=== PATIENT | male | born 1945 | race Caucasian/White ===

== ENCOUNTER 2019-04-29 15:55 | Outpatient (REF) | payer MEDICARE, MEDICAID, SELFPAY | END 2019-04-29 16:15 | LOC: NCHCN 15:55 | PROVIDERS: Visit Provider Nurse Practitioner Family | DX: L03.115 Cellulitis of right lower limb (principal) | CPT/HCPCS: 87077; 87070; 87186; 87205 ==

== ENCOUNTER 2019-05-02 16:16 | Outpatient (REF) | payer MEDICARE, MEDICAID, SELFPAY ==
[2019-05-02 21:59] LABS: HGB 12.6 g/dL (13.5-17.5); Mean Corp. HGB Concentration 32.3 g/dL (32.0-36.0); Mean Corpuscular Hemoglobin 31.4 pg (27.0-33.0); Mean Corpuscular Volume 97.3 fL (80-95); Mean Platelet Volume 11.4 fL (8.0-11.0); Platelet Count 184 x1000/uL (130-400); RBC 4.01 m/cumm (4.50-6.00); RBC Distribution Width 14.9 % (11.8-14.1); White Blood Cell Count 5.56 k/cumm (4.4-10.8)
[2019-05-02 22:15] LABS: BUN 22 mg/dL (7-18); CREATININE 1.19 mg/dL (0.70-1.30); Calcium 8.8 mg/dL (8.5-10.1); Chloride 100 mmol/L (98-107); Glucose 90 mg/dL (70-100); Potassium 5.2 mmol/L (3.5-5.1); Sodium 136 mmol/L (136-145)
== END 2019-05-02 16:36 ==
LOC: NCHCN 16:16
PROVIDERS: Visit Provider Internal Medicine
DX: I10 Essential (primary) hypertension (principal); R42 Dizziness and giddiness
CPT/HCPCS: 80048; 85027

== ENCOUNTER 2019-05-16 08:28 | Outpatient (REF) | payer MEDICARE, MEDICAID, SELFPAY ==
[2019-05-16 23:34] LABS: Iron 42 ug/dL (50-175); Total Iron Binding Capacity 281 ug/dL (250-450); Transferrin Sat 15 % (20-55)
[2019-05-17 00:04] LABS: Ferritin 93 ng/mL (8-388); Vitamin B12 392 pg/mL (193-986)
== END 2019-05-16 08:48 ==
LOC: NCHCN 08:28
PROVIDERS: Visit Provider Internal Medicine
DX: D64.9 Anemia, unspecified (principal)
CPT/HCPCS: 80186; 82607; 82728; 83540; 83550

== ENCOUNTER 2019-08-01 10:58 | Outpatient (REF) | payer MEDICARE, MEDICAID, SELFPAY ==
[2019-08-01 23:01] LABS: Calculated LDL 100 mg/dL; Cholesterol 173 mg/dL (50-200); HDL Cholesterol 50 mg/dL (40-60); Triglyceride 115 mg/dL (30-150)
== END 2019-08-01 11:18 ==
LOC: NCHCN 10:58
PROVIDERS: Visit Provider Internal Medicine
DX: I10 Essential (primary) hypertension (principal); Z13.6 Encounter for screening for cardiovascular disorders
CPT/HCPCS: 80061

== ENCOUNTER 2019-10-10 13:40 | Outpatient (REF) | payer MEDICARE, MEDICAID, SELFPAY ==
[2019-10-10 21:24] LABS: Uric Acid 4.6 mg/dL (3.5-7.2)
== END 2019-10-10 14:00 ==
LOC: NCHCN 13:40
PROVIDERS: Visit Provider Internal Medicine
DX: M10.9 Gout, unspecified (principal)
CPT/HCPCS: 84550

== ENCOUNTER 2020-04-26 13:01 | Outpatient (REF) | payer MEDICARE, MEDICAID, SELFPAY ==
[2020-04-26 20:52] LABS: Abs Immature Grans 0.02 k/cumm (0.0-0.09); Absolute Basophil Count 0.03 k/cumm (0.0-0.2); Absolute Lymphocyte Count 0.94 k/cumm (1.2-3.4); Absolute Monocyte Count 0.66 k/cumm (0.11-0.7); Absolute Neutrophil Count 3.71 k/cumm (1.2-6.7); Basophils % 0.5; Eosinophils % 3.6; HCT 44.7 % (40.0-50.0); HGB 14.4 g/dL (13.5-17.5); Immature Grans % 0.4 %; Lymphocytes % 16.9; Mean Corp. HGB Concentration 32.2 g/dL (32.0-36.0); Mean Corpuscular Hemoglobin 31.6 pg (27.0-33.0); Mean Corpuscular Volume 98.2 fL (80-95); Mean Platelet Volume 11.3 fL (8.0-11.0); Monocytes % 11.9; Neutrophils % 66.7; Platelet Count 159 x1000/uL (130-400); RBC 4.55 m/cumm (4.50-6.00); RBC Distribution Width 14.4 % (11.8-14.1); White Blood Cell Count 5.56 k/cumm (4.4-10.8)
[2020-04-26 21:04] LABS: Ferritin 79 ng/mL (26-388)
== END 2020-04-26 13:21 ==
LOC: NCHCN 13:01
PROVIDERS: Visit Provider Internal Medicine
DX: D64.9 Anemia, unspecified (principal)
CPT/HCPCS: 82728; 85025

== ENCOUNTER 2020-10-19 17:57 | Outpatient (REF) | payer MEDICARE, MEDICAID, SELFPAY ==
[2020-10-19 22:03] LABS: Anion Gap 4.3 mmol/L (3-11); BUN 35 mg/dL (7-18); CO2 32.7 mmol/L (21.0-32.0); CREATININE 1.17 mg/dL (0.70-1.30); Calcium 8.7 mg/dL (8.5-10.1); Chloride 101 mmol/L (98-107); Glucose 87 mg/dL (74-106); Potassium 4.4 mmol/L (3.5-5.1); Sodium 138 mmol/L (136-145)
== END 2020-10-19 18:17 ==
LOC: NCHCN 17:57
PROVIDERS: PCP Internal Medicine; Visit Provider Internal Medicine
DX: I10 Essential (primary) hypertension (principal)
CPT/HCPCS: 80048

== ENCOUNTER 2020-10-24 19:20 | Outpatient (REF) | payer MEDICARE, MEDICAID, SELFPAY ==
[2020-10-25 20:39] LABS: PSA, Screening 6.7 ng/mL (0.0-6.5)
== END 2020-10-24 19:40 ==
LOC: NCHCN 19:20
PROVIDERS: PCP Internal Medicine; Visit Provider Internal Medicine
DX: N42.89 Other specified disorders of prostate (principal); Z12.5 Encounter for screening for malignant neoplasm of prostate
CPT/HCPCS: 84153

== ENCOUNTER 2021-12-06 20:47 | Outpatient (REF) | payer MEDICARE, MEDICAID, SELFPAY ==
[2021-12-06 20:52] LABS: Abs Immature Grans 0.03 10^3/uL (0.0-0.06); Absolute Basophil Count 0.06 10^3/uL (0.0-0.2); Absolute Eosinophil Count 0.23 10^3/uL (0.0-0.7); Absolute Lymphocyte Count 0.85 10^3/uL (1.2-3.4); Absolute Monocyte Count 0.38 10^3/uL (0.1-0.8); Absolute Neutrophil Count 3.91 10^3/uL (1.2-6.7); Basophils % 1.1; Eosinophils % 4.2; HCT 46.1 % (40.0-50.0); HGB 14.5 g/dL (13.5-17.5); Immature Grans % 0.5; Lymphocytes % 15.6; MCH 30.3 pg (27.0-33.0); MCHC 31.5 % (32.0-36.0); MCV 96.2 fL (80-95); MPV 11.1 fL (8.0-11.0); Neutrophils % 71.6; Nucleated RBC 0 %; Platelet Count 165 10^3/uL (130-400); RBC 4.79 10^6/uL (4.36-5.78); RDW 15.3 % (11.8-14.1); RDW-SD 54.6 fL; WBC 5.46 10^3/uL (4.4-10.8)
[2021-12-06 21:32] LABS: ALT 26 U/L (16-63); AST 29 U/L (15-37); Albumin 4.1 g/dL (3.4-5.0); Alkaline Phosphatase 112 U/L (46-116); Anion Gap 6.2 mmol/L (3-11); BUN 26 mg/dL (7-18); Bilirubin, Total 0.4 mg/dL (0.2-1.0); CO2 31.8 mmol/L (21.0-32.0); CREATININE 1.3 mg/dL (0.70-1.30); Chloride 102 mmol/L (98-107); Estimated GFR 53.82 (mL/min/1.73m2); Glucose 85 mg/dL (74-106); Potassium 4.2 mmol/L (3.5-5.1); Sodium 140 mmol/L (136-145); TSH (W/Ref FT4) 2.15 uIU/mL (0.36-3.74); Total Protein 7.4 g/dL (6.4-8.2); Uric Acid 4.2 mg/dL (3.5-7.2)
== END 2021-12-06 20:48 | disposition home or self-care (01) ==
LOC: NCHCN 20:47
PROVIDERS: PCP Internal Medicine; Visit Provider Internal Medicine
DX: R53.83 Other fatigue (principal); R63.4 Abnormal weight loss; M10.9 Gout, unspecified
CPT/HCPCS: 80053; 84443; 84550; 85025

== ENCOUNTER 2022-04-16 15:54 | Outpatient (REF) | payer MEDICARE, MEDICAID, SELFPAY ==
[2022-04-16 21:18] LABS: HCT 41.9 % (40.0-50.0); HGB 13.8 g/dL (13.5-17.5); MCH 30.7 pg (27.0-33.0); MCHC 32.9 % (32.0-36.0); MCV 93 fL (80-95); Platelet Count 152 10^3/uL (130-400); RBC 4.49 10^6/uL (4.36-5.78); RDW 14.7 % (11.8-14.1); RDW-SD 50.9 fL; WBC 4.61 10^3/uL (4.4-10.8)
[2022-04-16 21:39] LABS: Anion Gap 7.5 mmol/L (3-11); BUN 27 mg/dL (7-18); CO2 29.5 mmol/L (21.0-32.0); CREATININE 1.3 mg/dL (0.70-1.30); Calcium 8.7 mg/dL (8.5-10.1); Chloride 102 mmol/L (98-107); Estimated GFR 53.82 (mL/min/1.73m2); Glucose 84 mg/dL (74-106); Potassium 4.2 mmol/L (3.5-5.1); Sodium 139 mmol/L (136-145); TSH (W/Ref FT4) 2.18 uIU/mL (0.36-3.74)
== END 2022-04-16 15:55 | disposition home or self-care (01) ==
LOC: NCHCN 15:54
PROVIDERS: PCP Internal Medicine; Visit Provider Internal Medicine
DX: I49.9 Cardiac arrhythmia, unspecified (principal)
CPT/HCPCS: 80048; 85027; 83735; 84443

== ENCOUNTER 2022-12-05 11:54 | Outpatient (REF) | payer MEDICARE, MEDICAID, SELFPAY ==
[2022-12-05 16:03] LABS: HCT 42.3 % (40.0-50.0); HGB 13.3 g/dL (13.5-17.5); MCH 29.6 pg (27.0-33.0); MCHC 31.4 % (32.0-36.0); MCV 94 fL (80-95); MPV 10.8 fL (8.0-11.0); Platelet Count 171 10^3/uL (130-400); RDW 13.9 % (11.8-14.1); RDW-SD 47.4 fL
[2022-12-05 16:26] LABS: ALT 23 U/L (16-63); AST 33 U/L (15-37); Albumin 3.9 g/dL (3.4-5.0); Alkaline Phosphatase 139 U/L (46-116); BUN 28 mg/dL (7-18); Bilirubin, Total 0.6 mg/dL (0.2-1.0); CREATININE 1.4 mg/dL (0.70-1.30); Chloride 101 mmol/L (98-107); Estimated GFR 52.09 (mL/min/1.73m2); Glucose 110 mg/dL (74-106); Potassium 4.6 mmol/L (3.5-5.1); Sodium 138 mmol/L (136-145); TSH (W/Ref FT4) 1.79 uIU/mL (0.36-3.74); Total Protein 7.2 g/dL (6.4-8.2)
== END 2022-12-05 11:55 | disposition home or self-care (01) ==
LOC: NCHCN 11:54
PROVIDERS: PCP Internal Medicine; Visit Provider Family Medicine
DX: R42 Dizziness and giddiness (principal); R53.83 Other fatigue; R63.4 Abnormal weight loss; I10 Essential (primary) hypertension
CPT/HCPCS: 80053; 85027; 84443

== ENCOUNTER 2023-02-03 17:21 | Outpatient (REF) | payer MEDICARE, MEDICAID, SELFPAY ==
[2023-02-03 21:49] LABS: Folate 7.1 ng/mL (8.6-20.0); Vitamin B12 502 pg/mL (193-986)
[2023-02-04 18:28] LABS: PSA, Screening 25.5 ng/mL (<=6.5)
== END 2023-02-03 17:22 | disposition home or self-care (01) ==
LOC: NCHCN 17:21
PROVIDERS: PCP Internal Medicine; Visit Provider Family Medicine
DX: R54 Age-related physical debility (principal); N40.0 Benign prostatic hyperplasia without lower urinary tract symptoms; R39.9 Unspecified symptoms and signs involving the genitourinary system
CPT/HCPCS: 84153; 82607; 82746

== ENCOUNTER → 2023-09-23 01:09 | Outpatient (CLI) | payer MEDICARE, MEDICAID, SELFPAY ==
--- NOTE | 2023-09-23 | DI.RAD_ITS ---
Exam(s) RF MODIFIED SPEECH BA SWALLOW TECHNIQUE: Modified barium swallow was performed in conjunction with speech pathology. CONTRAST MATERIAL: Oral barium Oral water soluble contrast was administered. COMPARISON: No exams were available for comparison FINDINGS: Fluoroscopy was provided during modified barium swallow study performed in conjunction with the [facility] [place] [facility] therapist. Radiologist was present in the fluoroscopy suite for this entire procedure. There was aspiration demonstrated during this study. See separate speech therapist report for detail s. IMPRESSION: Positive study for aspiration. RADIATION DOSE DELIVERED: danny Brooks=8.46 mGy
--- NOTE | 2023-09-23 14:17 | ST.MBS ---
Date of Service Date of service: 09/23/23 Time of Service: 14:17 Modified Barium Swallow Study Findings: Video fluoroscopic Swallowing Evaluation (VFSE) / Modified Barium Swallow Study (MBSS) Speech Language Pathology Report Patient referred for VFSE/MBSS from Dr. Arita given progressing difficulty swallowing solids and liquids. 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 This has been progressing slowly to the point where he is now seeking out further recommendations and workup. IMPRESSIONS: Swallow safety is impaired; swallow efficiency is impaired. Moderate chronic oropharyngeal dysphagia. Characterized primarily by delayed pharyngeal swallow onset and reduced hyo-laryngeal excursion resulting in penetration with aspiration of both thick and thin liquids during the swallow. Also noting reduced tongue base retraction and pharyngeal stripping wave, reduced UES distension, resulting in pharyngeal residue after the swallow (primarily tongue base/vallecular, also mild pyriform). 13mm Barium tablet was suspended in the hypopharynx and required secondary swallow to transit the UES. Noting only mild distal esophageal retention of liquids at end of study via esophageal survey. Penetration and aspiration of liquids occurred increasingly as rate and sip size were increased, and was more severe for thick vs thin liquids. Penetration into larynx was avoided with very small sip size. Of note, patient required cues to cough/clear penetrated or aspirated liquids from airway, with variable success. Patient appears to be at moderate risk for potential aspiration PNA and/or pulmonary compromise and mild risk for malnutrition, dehydration. Diet modification is indicated; non-oral nutrition is indicated. Swallow prognosis is good-fair given: Positive prognostic factors: Severity, Motivation, Cognitive status, Effectiveness of trialed compensatory strategies, Negative prognostic factors: Time since onset, disease/syndrome factors and pending patient/caregiver training in risk management as outlined, including use of trialed compensatory strategies. Patient appears to be a good candidate for behavioral swallow rehabilitation. Suggested specialist referrals:? GI, RD RECOMMENDATIONS: Diet Texture Recommendation:? IDDSI LEVEL SOLIDS 6-Soft & Bite-Sized Solids or 5-Minced & Moist Solids LIQUIDS 0-Thin Liquids with very small sip size and slow rate Please see further details at?www.iddsi.org MEDICATIONS Whole vs Crushed, as advised by MD or pharmacist, with tsp Puree Do not alter medications (e.g., cut, crush)? without advice from your MD or pharmacist. Risk Management Strategies:? Behavioral reflux precautions, including upright position during + 90 mins after meals. Small bites, approx [id number] Very small sips, approx 5mL / teaspoon Alternate solids/liquids as able Multiple swallows per bolus to encourage clearance of pharyngeal stasis/residue Control risk factors for aspiration pneumonia via (a) thorough oral hygiene & (b) maintaining physical mobility as tolerated PLAN: Therapy: Recommend subsequent outpatient session with COOK SUPERVISOR to review results of today's exam and develop treatment plan as appropriate. ----- OBJECTIVE Videofluoroscopic Swallow Evaluation (VFSE/MBSS) was conducted in the lateral projection by Speech-Language Pathologist, in collaboration with Radiologist, to evaluate oropharyngeal swallow function. Anatomic view under fluoroscopy: WFL PO Barium Contrast Trials Oral barium water-soluble contrast was administered as follows: IDDSI Level 0 Varibar thin liquid (40% w/v) IDDSI Level 2 Varibar nectar thick/mildly thick liquid (40% w/v) IDDSI Level 4 Varibar pudding/pureed/extremely thick (40% w/v) IDDSI Level 7 Regular Solid: 1/2 aby cracker coated in 3 mL Varibar pudding 13 mm barium tablet taken with Thin Liquids. MBSImP Component Scores: COMPONENT Scale SCORE 1 Lip closure (0-4) 1 Resulted in interlabial escape, without progression to anterior lip 2 Hold Position (0-3) 0 Maintained a cohesive bolus between tongue to palatal seal 3 Bolus Preparation (0-4) 1 Resulted in slow prolonged chewing/mashing with complete re-collection 4 Bolus Transport (0-4) 3 Was with repetitive/disorganized motion of the tongue 5 Oral Residue (0-4) 2 Was a collection on oral structures 6 Swallow Initiation (0-4) 3 Occurred when the bolus head was in the pyriform sinuses 7 Soft Palate Elevation (0-4) 0 Resulted in no bolus between soft palate and the pharyngeal wall 8 Laryngeal Elevation (0-3) 1 Was decreased with partial superior movement of thyroid cartilage/partial approximation of arytenoids to epiglottic petiole 9 Anterior Hyoid Motion (0-2) 1 Demonstrated partial anterior movement 10 Epiglottic Movement (0-2) 0 Resulted in complete inversion 11 Laryngeal Closure (0-2) 1 Was incomplete with narrow a column of air/contrast in laryngeal vestibule 12 Pharyngeal Stripping Wave (0-2) 1 Was present, but diminished 13 Pharyngeal Contraction (0-3) NA 14 PES Opening (0-3) 1 Demonstrated partial distension/partial duration, with partial obstruction of flow 15 Tongue Base Retraction (0-4) 3 Allowed a wide column of contrast or air between the retracted tongue base and the posterior pharyngeal wall 16 Pharyngeal Residue (0-4) 2 Was a collection of residue within or on pharyngeal structures 17 Esophageal Clearance (0-4) NA Results: COMPONENT Scale SCORE 1 Oral Score (0-18) 9 2 Pharyngeal Score (0-29) 10 3 Esophageal Score (0-4) 0 Dysphagia Outcome and Severity Scale: COMPONENT Scale SCORE 1 LEVEL (1-7) 5 Full PO: Modified Diet and/or [place] - Mild dysphagia; Distant supervision may need 1 diet consistency restricted Penetration-Aspiration Scale: COMPONENT Scale SCORE 1 Thin liquid (1-8) 8 Contrast entered the airway, passed below the vocal folds, and no effort was made to eject. 2 Innovation thick (1-8) 8 Contrast entered the airway, passed below the vocal folds, and no effort was made to eject. 3 Honey thick (1-8) NA 4 Pudding thick (1-8) 1 Contrast did not enter the airway 5 Cookie (1-8) 1 Contrast did not enter the airway Observations not captured in quantitative data: Aspiration occurred with both thin and thickened liquids with rapid/consecutive swallows, with more severe aspiration occurring with thick liquids. 13mm Barium tablet was suspended in the hypopharynx and required secondary swallow to transit the UES. Noting only mild distal esophageal retention of liquids at end of study via esophageal survey. Trialed Compensatory Strategies & Outcome: Maneuvers Successful (+) Unsuccessful (-) Postures Successful (+) Unsuccessful (-) 3 second Preparatory Set? + ? Chin Tuck Posture? ? Cough? ? Posterior Head tilt? Reflexive? Cued? ?+ ? ? Throat Clear? ? Head Tilt to? Reflexive? Left? Cued? Right? ? Saliva swallow? + ? Head Turn/Rotate to? ? Supraglottic Swallow? Left? ? Super-supraglottic Swallow? Right? ? Bolus Modifications Successful (+) Unsuccessful (-) Delivery/Alternating Consistencies ? Follow with Liquid Wash ? Follow with Solid Bolus? Delivery/Via Straw? ? Reduced Volume? + ? Reduced Rate of Intake? ?+ Increased Viscosity? ?- Other:?? ? Thank you for allowing us to take part in this patient's care. Please feel free to contact the [facility] Speech Language Pathology Department with any questions/concerns. Coding CPT Codes MOTION FLUOROSCOPY/SWALLOW - [id number] ([id number])
[2023-09-23] MEDS: Barium Sulfate 700 MG TAB PO (14:40)
[2023-09-23] MEDS: Barium Sulfate 81% w/w for Oral Suspension 148 GM BTL PO (14:40)
[2023-09-23] MEDS: Barium Sulfate 40% W/V 240 ML BTL PO (14:41)
[2023-09-23] MEDS: Barium Sulfate Oral Paste 40% W/V 230 ML TUBE PO (14:42)
== END ==
PROVIDERS: PCP Internal Medicine; Visit Provider Internal Medicine
DX: R13.12 Dysphagia, oropharyngeal phase (principal)
CPT/HCPCS: 92526; 92611; 74221

== ENCOUNTER 2024-01-19 16:09 | Outpatient (REF) | payer MEDICARE, MEDICAID, SELFPAY ==
[2024-01-19 22:06] LABS: PSA, Diagnostic 4.6 ng/mL (<=6.5)
== END 2024-01-19 16:10 | disposition home or self-care (01) ==
LOC: LBN 16:09
PROVIDERS: PCP Internal Medicine; Visit Provider Urology
DX: C61 Malignant neoplasm of prostate (principal)
CPT/HCPCS: 84153

== ENCOUNTER 2024-02-12 16:14 | Outpatient (REF) | payer MEDICARE, MEDICAID, SELFPAY ==
[2024-02-12 21:09] LABS: HCT 44.1 % (40.0-50.0); HGB 13.9 g/dL (13.5-17.5); MCH 30.2 pg (27.0-33.0); MCHC 31.5 % (32.0-36.0); MCV 96 fL (80-95); MPV 10.9 fL (8.0-11.0); Platelet Count 157 10^3/uL (130-400); RBC 4.61 10^6/uL (4.36-5.78); RDW 14.2 % (11.8-14.1); RDW-SD 50.1 fL
[2024-02-12 21:22] LABS: ALT 22 U/L (16-63); AST 24 U/L (15-37); Alkaline Phosphatase 125 U/L (46-116); Anion Gap 5.3 mmol/L (3-11); BUN 31 mg/dL (7-18); Bilirubin, Total 0.3 mg/dL (0.2-1.0); CO2 32.7 mmol/L (21.0-32.0); CREATININE 1.3 mg/dL (0.70-1.30); Calcium 9.3 mg/dL (8.5-10.1); Chloride 101 mmol/L (98-107); Estimated GFR 56.58 (mL/min/1.73m2); Glucose 107 mg/dL (74-106); Sodium 139 mmol/L (136-145); Total Protein 7.8 g/dL (6.4-8.2)
== END 2024-02-12 16:15 | disposition home or self-care (01) ==
LOC: NCHCN 16:14
PROVIDERS: PCP Internal Medicine; Visit Provider Internal Medicine
DX: R63.4 Abnormal weight loss (principal)
CPT/HCPCS: 80053; 85027

== ENCOUNTER 2024-04-25 20:41 | Outpatient (REF) | payer MEDICARE, MEDICAID, SELFPAY ==
--- OUTSIDE RECORDS SUMMARY | 2024-04-25 20:45 | XMS_ITS ---
Author Name Unknown Address [address] [place] [address] [phone] Phone Organization Unknown Address [address] [place] [address] [phone] Phone Care Team Providers Care Valve Liner Rubber Name Role Phone RERE FERRARO Attending Unavailable HOA Reyes Consulting Unavailable WILLIE Melendez Primary Unavailable Social History Type Status Start Date End Date Code Code Syst em Smoking History Former smoker 6601843 SNOMED CT Sex Male Assessment You had the following problems:CREST SYNDROMEHTNDEPRESSIONGOUT Hospital Discharge Instructions Should you have any questions prior to discharge, please contact a member of your healthcare team. If you have left the hospital and have any questions, please contact your primary care physician. Reason For Referral No Data Found Problems Problem Start Date Resolved Date Status Code Code System CREST SYNDROME active 44693012 SNOME D-CT HTN active 73555020 SNOMED-CT DEPRESSION active 06178489 SNOMED-CT GOUT active 69665773 SNOMED-CT Allergies and Adverse Reactions Allergy Substance Reaction Severity Start Date Concern Status Co de Code System No Known Drug Allergies Active 100032607 SNOMED-CT Plan of Treatment CT HEAD W/O CONTRAST 06/25/2023 X-RAY 05/26/2023 NM BONE SCAN WHOLE BODY 05/07/2023 US GUIDED NEEDLE BIOPSY 04/08/2023 Encounters Encounter Diagnosis Start Date Code Code Sys tem Other forms of angina pectoris 05/23/2022 SNOMED-CT Personal Care Team Section Performer Name Performer Role Active Date Inactive Da ruthie
--- OUTSIDE RECORDS SUMMARY | 2024-04-25 20:45 | XMS_ITS ---
Author Name Unknown Address [address] [place] [address] [phone] Phone Organization Unknown Address [address] [place] [address] [phone] Phone Care Team Providers Care Supervisor Finish End Name Role Phone SEAN Lynn Attending Unavailable WILLIE Melendez Primary Unavailable Social History Type Status Start Date End Date Code Code Syst em Smoking History Former smoker 9483208 SNOMED CT Sex Male Assessment You had [...] Status Code Code System CREST SYNDROME active 21018693 SNOME D-CT HTN active 53404639 SNOMED-CT DEPRESSION active 83070966 SNOMED-CT GOUT active 22045955 SNOMED-CT Allergies and Adverse Reactions Allergy Substance Reaction Severity Start Date Concern Status Co de Code System No Known Drug Allergies Active 601350025 SNOMED-CT Plan of Treatment CT HEAD W/O CONTRAST 06/25/2023 X-RAY 05/26/2023 NM BONE SCAN WHOLE BODY 05/07/2023 US GUIDED NEEDLE BIOPSY 04/08/2023 Encounters Encounter Diagnosis Start Date Code Code Sys tem Cardiomegaly 05/29/2022 SNOMED-CT Personal Care Team Section Performer Name Performer Role Active Date Inactive Da te
--- OUTSIDE RECORDS SUMMARY | 2024-04-25 20:45 | XMS_ITS ---
Author Name Unknown Address [address] [place] [address] [phone] Phone Organization Unknown Address [address] [place] [address] [phone] Phone Care Team Providers Care Selector Packer Name Role Phone MARY MCHUGH Registered Nurse Unavailable LESIA Barker Attending Unavailable HOA Reyes Primary Unavailable UNLISTED PROVIDER - REQUESTED Xhandoff Un available Results CT HEAD WO CONTRAST - Comple kelton: 11/27/2022 13:06 LOINC: [An error prevented this con tent from loading. This incident has been logged.] XR RIBS UNILAT W PA CHEST 3V RT* - Completed: 11/27/2022 15:07 LOINC: [An error prevented this con tent from loading. This incident has been logged.] Social History Type Status Start Date End Date Code Code Syst em Smoking History Former smoker 2314959 SNOMED CT Sex Male Vital Signs Vital Sign Value Unit [place] Value [place] Unit Date/Time Recent/Initial? Code Code System Body Mass Index 20.36 kg/m2 11/27/2022 12:06 Initial 25911 -5 LOINC Systolic Blood Pressure 186 mm[Hg] 11/27/2022 15:39 Most Recent 8480- 6 LOINC Diastolic Blood Pressure 96 mm[Hg] 11/27/2022 15:39 Most Recent 8462- 4 LOINC Systolic Blood Pressure 151 mm[Hg] 11/27/2022 12:06 Initial 8480- 6 LOINC Diastolic Blood Pressure 105 mm[Hg] 11/27/2022 12:06 Initial 8462- 4 LOINC Body Surface Area 1.67 m2 11/27/2022 12:06 Initial 3140- 1 LOINC Height 170.180 0 cm 67.00 in 11/27/2022 12:06 Initial 8302- 2 LOINC O2 Saturation 97 % 2022 15:39 Initial 68411 -5 LOINC Pulse 72.0 /min 11/27/2022 15:39 Most Recent 8867- 4 LOINC Pulse 72.0 /min 11/27/2022 12:06 Initial 8867- 4 LOINC Respiration 18 /min 11/27/19 15:39 Initial 9279- 1 LOINC Temperature 37.2 Irma 99.0 F 11/27/19 12:06 Initial 8310- 5 LOINC Weight 58.97 kg 130.00 lbs 11/27/2022 12:06 Initial 75759 -7 LOINC Assessment You had the following problems:CREST SYNDROMEHTNDEPRESSIONGOUT Hospital Discharge Instructions Should you have any questions prior to discharge, please contact a member of your healthcare team. If you have left the hospital and have any questions, please contact your primary care physician. Reason For Referral No Data Found Problems Problem Start Date Resolved Date Status Code Code System CREST SYNDROME active 15988974 SNOME D-CT HTN active 63169914 SNOMED-CT DEPRESSION active 99717472 SNOMED-CT GOUT active 52208402 SNOMED-CT Allergies and Adverse Reactions Allergy Substance Reaction Severity Start Date Concern Status Co de Code System No Known Drug Allergies Active 792702483 SNOMED-CT Plan of Treatment CT HEAD W/O CONTRAST 06/25/2023 X-RAY 05/26/2023 NM BONE SCAN WHOLE BODY 05/07/2023 US GUIDED NEEDLE BIOPSY 04/08/2023 Encounters Encounter Diagnosis Start Date Code Code Sys tem Fracture of one rib, right s benjamin, initial encounter for closed fracture 11/27/2022 SNOMED-CT Personal Care Team Section Performer Name Performer Role Active Date Inactive Da te
--- OUTSIDE RECORDS SUMMARY | 2024-04-25 20:46 | XMS_ITS ---
Author Name Unknown Address [address] [place] [address] [phone] Phone Organization Unknown Address [address] [place] [address] [phone] Phone Care Team Providers Care Crew Boss Name Role Phone ANN IBRAHIM Registered Nurse Unavailable JEROMY Plummer Attending Unavailable HOA Reyes Primary Unavailable UNLISTED PROVIDER - REQUESTED Xhandoff Un available Results COMPREHENSIVE METABOLIC PANE L (CMP) - Collect Date/Time: 05/30/2023 13:36 [facility] ID: [id number] [address] [place] [address], [address] LOINC: 88611-4 Test Value Unit Reference Range Code Code System Flag GLUCOSE 112 mg/dL L=70 H=116 2345-7 LOINC BUN 18 mg/dL L=6 H=25 3094-0 LOINC CREATININE 1.18 mg/dL L=0.67 H=1.17 2160-0 LOINC H SODIUM SERUM 134 mmol/L L=136 H=145 2951-2 LOINC L POTASSIUM SERUM 4.0 mmol/L L=3.4 H=5.2 2823-3 LOINC CHLORIDE SERUM 98 mmol/L L=96 H=110 2075-0 LOINC CARBON DIOXIDE (CO2) 33 mmol/L L=22 H=34 2028-9 LOINC ANION GAP 3.2 mmol/L 06489-9 LOINC CALCIUM SERUM 8.9 mg/dL L=8.2 H=10.2 03323-4 LOINC BILIRUBIN TOTAL 0.4 mg/dL L=0.0 H=1.3 1975-2 LOINC ALK. PHOS. 118 U/L L=46 H=116 6768-6 LOINC H SGOT (AST) 25 U/L L=15 H=37 1920-8 LOINC SGPT (ALT) 16 U/L L=12 H=78 1742-6 LOINC TOTAL PROTEIN 7.4 gm/dL L=6.0 H=8.0 2885-2 LOINC ALBUMIN 3.6 gm/dL L=3.4 H=5.0 1751-7 LOINC AGE 77 years eGFR (non-Afr.Amer.) 60 mL/min 29486-4 LOINC eGFR (Afr-Turkish) 73 mL/min 44282-1 LOINC CBC W/ DIFFERENTIAL* - Colle ct Date/Time: 05/30/2023 13:36 [facility] ID: [id number] [address] [place], [place], [birth year] LOINC: 48325-8 Test Value Unit Reference Range Code Code System Flag WBC 4.07 th/cmm L=5.00 H=10.00 6690-2 LOINC L NEUT % 66.8 % L=40.0 H=80.0 LYMPH % 17.9 % L=10.0 H=50.0 MONO % 7.9 % L=2.0 H=12.0 34239-1 LOINC EOS % 4.9 % L=0.0 H=8.0 BASO % 1.5 % L=0.0 H=3.0 IG % 1.0 % L=0.0 H=1.1 2514-8 LOINC NRBC % 0.0 % L=0.0 H=0.0 47775-4 LOINC NEUT abs count 2.7 th/cmm L=1.6 H=8.4 751-8 LOINC LYMPH abs count 0.7 th/cmm L=1.5 H=4.0 731-0 LOINC L MONO abs count 0.3 th/cmm L=0.2 H=1.0 742-7 LOINC EOS abs count 0.2 th/cmm L=0.0 H=0.5 711-2 LOINC BASO abs count 0.1 th/cmm L=0.0 H=0.2 704-7 LOINC IG abs count 0.0 th/cmm L=0.0 H=0.1 10080-5 LOINC NRBC abs count 0.0 mil/cmm L=0.0 H=0.0 43195-6 LOINC RBC 4.65 mil/cmm L=4.30 H=6.20 789-8 LOINC HEMOGLOBIN 13.5 gm/dL L=13.0 H=17.0 718-7 LOINC HEMATOCRIT 43 % L=45 H=52 4544-3 LOINC L MCV 91 fL L=82 H=92 787-2 LOINC MCH 29.0 pg L=27.0 H=31.0 785-6 LOINC MCHC 31.8 % L=32.0 H=36.0 786-4 LOINC L RDW-SD 50.9 fL L=39.0 H=49.0 788-0 LOINC H PLATELET COUNT 153 th/cmm L=150 H=450 777-[address] CHEST W IV CONTRAST - Com pleted: 05/30/2023 15:11 LOINC: [An error prevented this con tent from loading. This incident has been logged.] CT HEAD AND CSPINE WO CONTRA ST* - Completed: 05/30/2023 15:11 LOINC: [An error prevented this con tent from loading. This incident has been logged.] Social History Type Status Start Date End Date Code Code Syst em Smoking History Former smoker 6198552 SNOMED CT Sex Male Vital Signs Vital Sign Value Unit [place] Value [place] Unit Date/Time Recent/Initial? Code Code System Systolic Blood Pressure 181 mm[Hg] 05/30/2023 17:17 Most Recent 8480-6 LOINC Diastolic Blood Pressure 98 mm[Hg] 05/30/2023 17:17 Most Recent 8462-4 LOINC Systolic Blood Pressure 202 mm[Hg] 05/30/2023 14:24 Initial 8480-6 LOINC Diastolic Blood Pressure 129 mm[Hg] 05/30/2023 14:24 Initial 8462-4 LOINC O2 Saturation 98 % 2022 17:17 Most Recent 11110- 5 LOINC O2 Saturation 98 % 2022 14:24 Initial 54262- 5 LOINC Pulse 87.0 /min 05/30/2023 17:17 Most Recent 8867-4 LOINC Pulse 89.0 /min 05/30/2023 14:24 Initial 8867-4 LOINC Respiration 19 /min 05/30/20 23 17:17 Most Recent 9279-1 LOINC Respiration 18 /min 05/30/20 23 14:24 Initial 9279-1 LOINC Temperature 37.4 Irma 99.3 F 05/30/20 14:24 Initial 8310-5 LOINC Assessment You had the following problems:CREST SYNDROMEHTNDEPRESSIONGOUT Hospital Discharge Instructions Should you have any questions prior to discharge, please contact a member of your healthcare team. If you have left the hospital and have any questions, please contact your primary care physician. Reason For Referral No Data Found Problems Problem Start Date Resolved Date Status Code Code System CREST SYNDROME active 90765840 SNOME D-CT HTN active 48659722 SNOMED-CT DEPRESSION active 93834243 SNOMED-CT GOUT active 39682833 SNOMED-CT Allergies and Adverse Reactions Allergy Substance Reaction Severity Start Date Concern Status Co de Code System No Known Drug Allergies Active 054917968 SNOMED-CT Plan of Treatment CT HEAD W/O CONTRAST 06/25/2023 X-RAY 05/26/2023 NM BONE SCAN WHOLE BODY 05/07/2023 US GUIDED NEEDLE BIOPSY 04/08/2023 Encounters Encounter Diagnosis Start Date Code Code Sys tem Contusion of head 05/30/2023 364994986 SNOMED-CT Personal Care Team Section Performer Name Performer Role Active Date Inactive Da ruthie
--- OUTSIDE RECORDS SUMMARY | 2024-04-25 20:46 | XMS_ITS ---
Author Name Unknown Address [address] [place] [address] [phone] Phone Organization Unknown Address [address] [place] [address] [phone] Phone Care Team Providers Care Monitoring And Evaluation Advisor Name Role Phone OSIRIS Dhillon Attending Unavailable HOA Reyes Primary Unavailable Results US PROSTATE BIOPSY* - Comple kelton: 04/08/2023 13:33 LOINC: [An error prevented this con tent from loading. This incident has been logged.] Social History Type Status Start Date End Date Code Code Syst em Smoking History Former smoker 0627631 SNOMED CT Sex Male Assessment You had [...] Status Code Code System CREST SYNDROME active 36258966 SNOME D-CT HTN active 38009323 SNOMED-CT DEPRESSION active 19420935 SNOMED-CT GOUT active 94001169 SNOMED-CT Allergies and Adverse Reactions Allergy Substance Reaction Severity Start Date Concern Status Co de Code System No Known Drug Allergies Active 302390431 SNOMED-CT Plan of Treatment CT HEAD W/O CONTRAST 06/25/2023 X-RAY 05/26/2023 NM BONE SCAN WHOLE BODY 05/07/2023 US GUIDED NEEDLE BIOPSY 04/08/2023 Encounters Encounter Diagnosis Start Date Code Code Sys tem Malignant neoplasm of prostate 04/08/2023 SNOMED-CT Personal Care Team Section Performer Name Performer Role Active Date Inactive Da te
--- OUTSIDE RECORDS SUMMARY | 2024-04-25 20:46 | XMS_ITS ---
Author Name Unknown Address [address] [place] [address] [phone] Phone Organization Unknown Address [address] [place] [address] [phone] Phone Care Team Providers Care Cns Name Role Phone OSIRIS Dhillon Attending Unavailable HOA Reyes Primary Unavailable Results NM BONE SCAN WHOLE BODY - Co mpleted: 05/07/2023 13:26 LOINC: [An error prevented this con tent from loading. This incident has been logged.] Social History Type Status Start Date End Date Code Code Syst em Smoking History Former smoker 2445973 SNOMED CT Sex Male Assessment You had [...] Status Code Code System CREST SYNDROME active 86946628 SNOME D-CT HTN active 07843105 SNOMED-CT DEPRESSION active 20660722 SNOMED-CT GOUT active 92105475 SNOMED-CT Allergies and Adverse Reactions Allergy Substance Reaction Severity Start Date Concern Status Co de Code System No Known Drug Allergies Active 372099987 SNOMED-CT Plan of Treatment CT HEAD W/O CONTRAST 06/25/2023 X-RAY 05/26/2023 NM BONE SCAN WHOLE BODY 05/07/2023 US GUIDED NEEDLE BIOPSY 04/08/2023 Encounters Encounter Diagnosis Start Date Code Code Sys tem Primary malignant neoplasm of prostate 05/07/2023 93 098931 SNOMED-CT Personal Care Team Section Performer Name Performer Role Active Date Inactive Da te
--- OUTSIDE RECORDS SUMMARY | 2024-04-25 20:46 | XMS_ITS ---
Author Name Unknown Address [address] [place] [address] [phone] Phone Organization Unknown Address [address] [place] [address] [phone] Phone Care Team Providers Care Sliver Machine Operator Name Role Phone OSIRIS Dhillon Attending Unavailable HOA Reyes Primary Unavailable Results XR PELVIS 1V OR 2V - Complet ed: 05/26/2023 14:28 LOINC: [An error prevented this con tent from loading. This incident has been logged.] Social History Type Status Start Date End Date Code Code Syst em Smoking History Former smoker 1234422 SNOMED CT Sex Male Assessment You had [...] Status Code Code System CREST SYNDROME active 85895021 SNOME D-CT HTN active 91786505 SNOMED-CT DEPRESSION active 13243225 SNOMED-CT GOUT active 03601173 SNOMED-CT Allergies and Adverse Reactions Allergy Substance Reaction Severity Start Date Concern Status Co de Code System No Known Drug Allergies Active 410764358 SNOMED-CT Plan of Treatment CT HEAD W/O CONTRAST 06/25/2023 X-RAY 05/26/2023 NM BONE SCAN WHOLE BODY 05/07/2023 US GUIDED NEEDLE BIOPSY 04/08/2023 Encounters Encounter Diagnosis Start Date Code Code Sys tem Abnormal findings on diagnos tic imaging of other parts of musculoskeletal system 05/26/2023 SNOMED-CT Personal Care Team Section Performer Name Performer Role Active Date Inactive Da te
--- OUTSIDE RECORDS SUMMARY | 2024-04-25 20:47 | XMS_ITS ---
Author Name Unknown Address [address] [place] [address] [phone] Phone Organization Unknown Address [address] [place] [address] [phone] Phone Care Team Providers Care Laboratory Technologist Name Role Phone GARRET Aguila Attending Unavailable HOA Reyes Primary Unavailable Results CT HEAD WO CONTRAST - Comple kelton: 06/04/2023 15:37 LOINC: [An error prevented this con tent from loading. This incident has been logged.] Social History Type Status Start Date End Date Code Code Syst em Smoking History Former smoker 5746230 SNOMED CT Sex Male Assessment You had [...] Status Code Code System CREST SYNDROME active 46797263 SNOME D-CT HTN active 38929037 SNOMED-CT DEPRESSION active 44666688 SNOMED-CT GOUT active 29543309 SNOMED-CT Allergies and Adverse Reactions Allergy Substance Reaction Severity Start Date Concern Status Co de Code System No Known Drug Allergies Active 987174465 SNOMED-CT Plan of Treatment CT HEAD W/O CONTRAST 06/25/2023 X-RAY 05/26/2023 NM BONE SCAN WHOLE BODY 05/07/2023 US GUIDED NEEDLE BIOPSY 04/08/2023 Encounters Encounter Diagnosis Start Date Code Code Sys tem Dizziness 06/04/2023 684224267 SNOMED-CT Personal Care Team Section Performer Name Performer Role Active Date Inactive Da te
--- OUTSIDE RECORDS SUMMARY | 2024-04-25 20:47 | XMS_ITS ---
Author Name Unknown Address [address] [place] [address] [phone] Phone Organization Unknown Address [address] [place] [address] [phone] Phone Care Team Providers Care Brake Lining Maker Name Role Phone GARRET Aguila Attending Unavailable HOA Reyes Primary Unavailable Results CT HEAD WO CONTRAST - Comple kelton: 06/25/2023 14:47 LOINC: [An error prevented this con tent from loading. This incident has been logged.] Social History Type Status Start Date End Date Code Code Syst em Smoking History Former smoker 1479884 SNOMED CT Sex Male Assessment You had [...] Status Code Code System CREST SYNDROME active 73723179 SNOME D-CT HTN active 94173063 SNOMED-CT DEPRESSION active 27857458 SNOMED-CT GOUT active 68343482 SNOMED-CT Allergies and Adverse Reactions Allergy Substance Reaction Severity Start Date Concern Status Co de Code System No Known Drug Allergies Active 393851222 SNOMED-CT Plan of Treatment CT HEAD W/O CONTRAST 06/25/2023 X-RAY 05/26/2023 NM BONE SCAN WHOLE BODY 05/07/2023 US GUIDED NEEDLE BIOPSY 04/08/2023 Encounters Encounter Diagnosis Start Date Code Code Sys tem Dizziness and giddiness 06/25/2023 SNOM ED-CT Personal Care Team Section Performer Name Performer Role Active Date Inactive Da te
--- OUTSIDE RECORDS SUMMARY | 2024-04-25 20:47 | XMS_ITS ---
Author Name Unknown Address [address] [place] [address] [phone] Phone Organization Unknown Address [address] [place] [address] [phone] Phone Care Team Providers Care Real Estate Intern Name Role Phone KETAN Membreno Attending Unavailable HOA Reyes Primary Unavailable Social History Type Status Start Date End Date Code Code Syst em Smoking History Former smoker 1917330 SNOMED CT Sex Male Assessment You had [...] Status Code Code System CREST SYNDROME active 32729652 SNOME D-CT HTN active 82875427 SNOMED-CT DEPRESSION active 31410030 SNOMED-CT GOUT active 42264150 SNOMED-CT Allergies and Adverse Reactions Allergy Substance Reaction Severity Start Date Concern Status Co de Code System No Known Drug Allergies Active 005502039 SNOMED-CT Plan of Treatment CT HEAD W/O CONTRAST 06/25/2023 X-RAY 05/26/2023 NM BONE SCAN WHOLE BODY 05/07/2023 US GUIDED NEEDLE BIOPSY 04/08/2023 Encounters Encounter Diagnosis Start Date Code Code Sys tem Encounter for antineoplastic chemotherapy 07/03/2023 SNOMED-CT Personal Care Team Section Performer Name Performer Role Active Date Inactive Da te
--- OUTSIDE RECORDS SUMMARY | 2024-04-25 20:48 | XMS_ITS ---
Author Name Unknown Address [address] [place] [address] [phone] Phone Organization Unknown Address [address] [place] [address] [phone] Phone Care Team Providers Care Job Site Supervisor Name Role Phone OSIRIS Dhillon Attending Unavailable HOA Reyes Primary Unavailable Results URINALYSIS MICROSCOPIC ONLY - Collect Date/Time: 09/08/2023 11:30 [facility] ID: [id number] [address] [place], [place], [address] LOINC: 73746-3 Test Value Unit Reference Range Code Code System Flag WBCs 25-100 0-5 / hpf 41218-1 LOINC RBCs 10-25 0-5 / hpf 85513-5 LOINC Epith cells none 0-5 / hpf Crystals none none Bacteria large none Mucus none none Casts none none /lpf Other Social History Type Status Start Date End Date Code Code Syst em Smoking History Former smoker 4347806 SNOMED CT Sex Male Assessment You had [...] Status Code Code System CREST SYNDROME active 39918177 SNOME D-CT HTN active 05305567 SNOMED-CT DEPRESSION active 19034265 SNOMED-CT GOUT active 27259935 SNOMED-CT Allergies and Adverse Reactions Allergy Substance Reaction Severity Start Date Concern Status Co de Code System No Known Drug Allergies Active 194646153 SNOMED-CT Plan of Treatment CT HEAD W/O CONTRAST 06/25/2023 X-RAY 05/26/2023 NM BONE SCAN WHOLE BODY 05/07/2023 US GUIDED NEEDLE BIOPSY 04/08/2023 Encounters Encounter Diagnosis Start Date Code Code Sys tem Blood in urine 09/08/2023 52819832 SNOMED-CT Personal Care Team Section Performer Name Performer Role Active Date Inactive Da te
--- OUTSIDE RECORDS SUMMARY | 2024-04-25 20:48 | XMS_ITS | Patient Health Record ---
Author Name Unknown Organization [facility] Address [address] [place] [address] Care Team Providers Care Annual Campaign Manager Name Role Phone Maritza Dubon Primary Care Provider Unavailab Cheli López Unavailable [phone] ALLERGIES No Known Allergies RESULTS Component Value Reference Range Notes -Urinalysis Reviewed date:09/08/2023 12:08:05 PM Interpretation: Performing Lab: Notes/Report: WBC 2+ Nitrate neg Urobilinogen neg Protein +/- pH 7.0 Occult Blood +/- Specific [place] 1.010 Ketones 2+ Bilirubin neg Color Appearance Glucose neg Urine Microscopic Only Reviewed date:09/16/2023 10:33:35 AM Interpretation:Abnormal Performing Lab: Notes/Report: Abnormal PSA Diagnostic Reviewed date:10/15/2023 01:23:34 PM Interpretation:1.05 Performing Lab: Notes/Report: 1.05 PSA Diagnostic Reviewed date:01/26/2024 01:50:11 PM Interpretation:4.6 Performing Lab: Notes/Report: 4.6 REASON FOR REFERRAL Reason Recent diagnosis of Prostate Cancer, please consult Referral Organization [facility] Referring Provider First Name Cheli Referring Provider Last Name Sagar Referring Provider Speciality Urology Referred Organization [facility] Referred Provider Fede Roman Referred Address [address] [place], [place],[address], Referred Provider Specialty Oncology Referral Priority Routine MEDICATIONS Medication SIG (Take, Route, Frequency, Duration) Notes Start Date End Date Status Sertraline HCl 100 MG 1 tablet Orally On ce a day for 30 day(s) Active Ciprofloxacin HCl 500 MG 1 tablet Orally 1 dose Active Flonase 50 MCG/DOSE 1 spray in each nost ril Nasally Once a day for 30 day(s) Active Myrbetriq 25 MG 1 tablet Orally Once a day for 30 days 09/08/2023 Active Lupron Depot (3-Month) 22.5 MG as directed Intramuscular 07/19/2023 Ac tive Omeprazole 20 MG 1 capsule 30 minutes before morning meal Orally Once a day for 30 day(s) Active Allopurinol 100 MG 1 tablet Orally Once a day for 30 day(s) Active IMMUNIZATIONS Vaccine Route Administration Date Status Comme nts Pneumococcal polysaccharide PPV23 Unknown 02/01/2018 Ad ministered Influenza, high dose seasonal Unknown 12/05/2022 Admini stered Covid19 Unknown 01/02/2021 Administered Covid19 Unknown 01/30/2021 Administered Covid19 Unknown 09/12/2021 Administered Covid19 Unknown 02/26/2022 Administered Covid19 Unknown 12/05/2022 Administered SOCIAL HISTORY Tobacco Use: Social History Observation Description Date Details (start date - stop date) Former Smoker NA - NA Sex Assigned At : Social History Observation Description Sex Assigned At Unknown Tobacco Use/Smoking: Question Answer Notes Are you a former smoker PROBLEMS Problem Type ICD Code Onset Dates Problem Status W/U Status Risk SNOMED Code Notes Problem Malignant neoplasm of prostate (C61) Active confirmed Malignant nii or of prostate (202703707) Problem Essential (primary) hypertension (I10) Active confirmed Essential hypertension (70458763) Problem Urge incontinence (N39.41) Active confirmed Urge incontinence of urine (09059211) Problem Hematuria, unspecified (R31.9) Active confirmed Hematuria (80690528) Problem Retention of urine, unspecified (R33.9) Active confirmed Retention of urine (964100163) Problem Benign prostatic hyperplasia with lower urinary tract symptoms (N40.1) Active confirmed Benign prostati c hyperplasia with outflow obstruction (328871052) Problem Elevated prostate specific antigen [PSA] (R97.20) Active confirmed Prostate specific antigen above reference range (907358222) VITAL SIGNS Blood pressure diastolic 70 mm Hg 10/06/2023 Height 66.4 in 10/06/2023 Blood pressure systolic 130 mm Hg 10/06/2023 Weight 130 lbs 10/06/2023 BMI 20.73 kg/m2 10/06/2023 PROCEDURES Procedure Date Ordered Date Performed Result Body Sit e - PVR (Post-Void Residual Volume) 09/08/2023 09/08/2023 46 ml Encounters Encounter Location Date Provider Diagnosis [facility] [address] 07/07/2023 Cheli Keith Malignant neoplasm o f prostate C61 and Retention of urine, unspecified R33.9 [facility] [address] 09/08/2023 Cheli Keith Hematuria, unspecified R31.9 ; Malignant neoplasm of prostate C61 and Urge incontinence N39.41 [facility] [address] 10/06/2023 Cheli Keith Asymptomatic microscopic hematuria R31.21 [facility] [address] [address] 05/21/2023 Cheli Keith [address] [address] 05/30/2023 Cheli Keith [address] [address] 06/02/2023 Cheli Keith [address] [address] 09/08/2023 Cheli Keith [address] [address] 09/15/2023 Cheli Keith Urge incontinence N39.41 [facility] [address] [address] 10/22/2023 Cheli Keith ASSESSMENTS Encounter Date Diagnosis Assessment Notes Treatment Notes Treatment Clinical Notes 07/07/2023 Malignant neoplasm of prostate (ICD-10 - C61) 09/08/2023 Malignant neoplasm of prostate (ICD-10 - C61) 09/08/2023 Hematuria, unspecified (ICD-10 - R31.9) 09/15/2023 Urge incontinence (ICD-10 - N39.41) 10/06/2023 Asymptomatic microscopic hematuria (ICD-10 - R31.21) 09/08/2023 Urge incontinence (ICD-10 - N39.41) 07/07/2023 Retention of urine, unspecified (ICD-10 - R33.9) Patient came to clinic today for a voiding trial, 300 ml of sale instilled, patient was able to void 290ml without straining or hesitation. Patient will follow a timed void schedule and call us if unale to void within 4 hours. No sign of meatal erosion noted. Scanned patient's bladder and he had 9 ml left in bladder after voiding. 09/08/2023 Other C/O frequency a nd leaking urine in the morning. Nocturia 0-1x. 10/06/2023 Other The patient was prepped and draped in the normal sterile fashion, 2% xylocaine jelly was placed in the urethra. The urethra and bladder were reviewed with a flexible cystoscope. There were no lesions, erythematous patches or tumors in the bladder. He has numerous trabeculations and cellules, on retroflex there were no lesions seen at the bladder done or at the bladder neck. The ureteral orifices were in normal postion. Upon withdrawal of the scope no lesions were seen in the urethra. The patient tolerated the procedure well and was given prostprocedure instructions. 500mg Cipro x 1 dose given pre-procedure PLAN OF TREATMENT Next Appt Details Provider Name:Cheli Jacquie amezquita, 05/03/2024 10:00:00 AM, [address] [place] [address], [phone], Insurance Providers Payer Name Payer Address Payer Phone Subscriber Number Group Number Insured Name Patient Relationship to Insured Coverage Start Date Coverage End Date [employer] of [place] - J14 [address] [place] [phone] [id number] Self - patient is the insured Medicaid of [place] [address] [place] [id number] Self - patient is the insured MEDICAL (GENERAL) HISTORY Medical History History ICD Code Ventricular Bigeminy Fatigue Ascending Aorta Dilation Hearing Loss Bilateral Weight Loss Former Smoker Gout CREST Syndrome Anemia Diverticulosis GERD Depression Hypogonadism Elevated PSA Janki 8 Prostate CA - 03/2023 CREST syndrome Surgical History Surgery Date(Month/Year) Circumcision Tonsils Back Prostate Biopsy - Janki 8 03/2023
--- OUTSIDE RECORDS SUMMARY | 2024-04-25 20:48 | XMS_ITS ---
Author Name Unknown Address [address] [place] [address] [phone] Phone Organization Unknown Address [address] [place] [address] [phone] Phone Care Team Providers Care Die Engraver Name Role Phone OSIRIS Dhillon Attending Unavailable HOA Reyes Primary Unavailable Results PSA DIAG PROSTATE SPECIFIC A NTIGEN * - Collect Date/Time: 10/06/2023 11:35 [facility] ID: [id number] [address] [place], [place], [address] LOINC: 2857-1 Test Value Unit Reference Range Code Code System Flag PSA 1.05 ng/mL L=0.00 H=6.50 2857-1 LOINC Social History Type Status Start Date End Date Code Code Syst em Smoking History Former smoker 5532264 SNOMED CT Sex Male Assessment You had [...] Status Code Code System CREST SYNDROME active 65972155 SNOME D-CT HTN active 52898437 SNOMED-CT DEPRESSION active 19292850 SNOMED-CT GOUT active 43941451 SNOMED-CT Allergies and Adverse Reactions Allergy Substance Reaction Severity Start Date Concern Status Co de Code System No Known Drug Allergies Active 136069230 SNOMED-CT Plan of Treatment CT HEAD W/O CONTRAST 06/25/2023 X-RAY 05/26/2023 NM BONE SCAN WHOLE BODY 05/07/2023 US GUIDED NEEDLE BIOPSY 04/08/2023 Encounters Encounter Diagnosis Start Date Code Code Sys tem Malignant neoplasm of prostate 10/06/2023 SNOMED-CT Personal Care Team Section Performer Name Performer Role Active Date Inactive Da te
[2024-04-25 22:44] LABS: Vitamin B12 302 pg/mL (193-986); Vitamin D 25 Total 28.6 ng/mL (30-100)
[2024-04-25 22:46] LABS: Folate > 20.0 ng/mL (8.6-20.0)
[2024-04-26 18:53] LABS: PSA, Diagnostic 9.8 ng/mL (<=6.5)
== END 2024-04-25 20:42 | disposition home or self-care (01) ==
LOC: NCHCN 20:41
PROVIDERS: Urology; PCP Internal Medicine; Visit Provider Internal Medicine
DX: R74.8 Abnormal levels of other serum enzymes (principal); C61 Malignant neoplasm of prostate
CPT/HCPCS: 82306; 82607; 82746; 84153

== ENCOUNTER 2024-06-07 15:49 | Outpatient (REF) | payer MEDICARE, SELFPAY ==
--- OUTSIDE RECORDS SUMMARY | 2024-06-07 15:58 | XMS_ITS ---
Author Organization Unknown Address [address] [place] [address] [phone] Phone Care Team Providers Care Senior Brand Manager Name Role Phone SEAN Lynn Attending Unavailable WILLIE Melendez Primary Unavailable Social History Type Status Start Date End Date Code Code Syst em Smoking History Former smoker 7101111 SNOMED CT Sex Male Assessment You had [...] Status Code Code System CREST SYNDROME active 94984338 SNOME D-CT HTN active 05702488 SNOMED-CT DEPRESSION active 73887566 SNOMED-CT GOUT active 41269833 SNOMED-CT Allergies and Adverse Reactions Allergy Substance Reaction Severity Start Date Concern Status Co de Code System No Known Drug Allergies Active 079264401 SNOMED-CT Plan of Treatment CT HEAD W/O CONTRAST 06/25/2023 X-RAY 05/26/2023 NM BONE SCAN WHOLE BODY 05/07/2023 US GUIDED NEEDLE BIOPSY 04/08/2023 Encounters Encounter Diagnosis Start Date Code Code Sys tem Cardiomegaly 05/29/2022 SNOMED-CT Personal Care Team Section Performer Name Performer Role Active Date Inactive Da te
--- OUTSIDE RECORDS SUMMARY | 2024-06-07 15:58 | XMS_ITS ---
Author Organization Unknown Address [address] [place] [address] [phone] Phone Care Team Providers Care Chassis Mechanic Name Role Phone RERE FERRARO Attending Unavailable HOA Reyes Consulting Unavailable WILLIE Melendez Primary Unavailable Social History Type Status Start Date End Date Code Code Syst em Smoking History Former smoker 5612174 SNOMED CT Sex Male Assessment You had [...] Status Code Code System CREST SYNDROME active 54495907 SNOME D-CT HTN active 73435044 SNOMED-CT DEPRESSION active 89212988 SNOMED-CT GOUT active 79330727 SNOMED-CT Allergies and Adverse Reactions Allergy Substance Reaction Severity Start Date Concern Status Co de Code System No Known Drug Allergies Active 745586855 SNOMED-CT Plan of Treatment CT HEAD W/O CONTRAST 06/25/2023 X-RAY 05/26/2023 NM BONE SCAN WHOLE BODY 05/07/2023 US GUIDED NEEDLE BIOPSY 04/08/2023 Encounters Encounter Diagnosis Start Date Code Code Sys tem Other forms of angina pectoris 05/23/2022 SNOMED-CT Personal Care Team Section Performer Name Performer Role Active Date Inactive Da te
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
--- OUTSIDE RECORDS SUMMARY | 2024-06-07 15:58 | XMS_ITS ---
Author Organization Unknown Address [address] [place] [phone] Phone Care Team Providers Care Pvc Loader Name Role Phone MARY MCHUGH Registered Nurse Unavailable LESIA Barker Attending Unavailable HOA Reyes Primary Unavailable UNLISTED PROVIDER - REQUESTED Xhandoff Un available Results CT HEAD WO CONTRAST - Comple kelton: 11/27/2022 13:06 LOINC: RADIOLOGY [place], [place] [address] PACS ASBESTOS ABATEMENT TECHNICIAN REPORT Patient Name: ANN CAO MRN: Sex: : Age: [id number] M 1945 77 Account: Accession: Admit: StayType: [id number] 11/27/2022 E/R Ordered: Order ID: Submitted: Ordering Provider: 11/27/2022 12:47 [id number] KIKE BECKMAN Completed: Technologist: Resulted: 11/27/2022 13:06 SLG 11/27/2022 13:17 Study Description: CT HEAD WO CONTRAST Study Reason: trauma Technique: Imaging Protocol: Axial computed tomography images with coronal and sagittal reformatted images were created and reviewed. Comparison: None. FINDINGS: Ventricles and Extra axial spaces: Normal in size and morphology for the patient's age. Hemorrhage: None. Cerebral parenchyma: Normal. [place] of [place]: Unremarkable. Midline shift: None. Brainstem/Cerebellum: Normal. Calvarium: Normal. Visualized Paranasal sinuses/Mastoids: Clear. Soft tissues: There is a scalp hematoma overlying the right parietal bone. IMPRESSION: 1. No acute intracranial process. 2. Right parietal scalp hematoma. 3. Findings were discussed with Dr. Sierra on 1:17 PM on 11/27/2022. Radiation Optimization: All CT scans at this facility use at least one of these dose optimization techniques: automated exposure control; mA and/or kV adjustment per patient size (includes targeted exams where dose is matched to clinical indication); or iterative reconstruction. Report Digitally Signed by Vel Cardoza on 11/27/2022 01:17 PM EST XR RIBS LETTY Lynn PA CHEST 3V RT* - Completed: 11/27/2022 15:07 LOINC: RADIOLOGY [place], [place] [address] PACS ASBESTOS ABATEMENT TECHNICIAN REPORT Patient Name: ANN CAO MRN: Sex: : Age: [id number] M 1945 Account: Accession: Admit: StayType: [id number] 11/27/2022 E/R Ordered: Order ID: Submitted: Ordering Provider: 11/27/2022 12:47 [id number] KIKE BECKMAN Completed: Technologist: Resulted: 11/27/2022 12:47 11/27/2022 13:21 Study Description: XR RIBS UNILAT W PA CHEST 3V RT* Study Reason: Trauma Technique: 2D digital imaging was performed of the chest. 3 images were obtained. Comparison: None. FINDINGS: MEDIASTINUM: Normal. HEART: Normal. PULMONARY VASCULATURE: Normal. LUNGS: Clear. PLEURAL SPACE: There is blunting of the left costophrenic angle which may present a small effusion. No left effusion is seen. No pneumothorax is identified. BONE:Within normal limits for the patient's age. There is a nondisplaced fracture of the posterior lateral aspect of the right sixth rib. OTHER FINDINGS:Normal. IMPRESSION: 1. Nondisplaced fracture involving the posterior lateral aspect of the right sixth rib. 2. Blunting of the right costophrenic angle which may present a small right pleural effusion. Report Digitally Signed by Vel Cardoza on 11/27/2022 01:21 PM EST Social History Type Status Start Date End Date Code Code Syst em Smoking History Former smoker 1290762 SNOMED CT Sex Male Vital Signs Vital Sign Value Unit Maries Value Maries Unit Date/Time Recent/Initial? Code Code System Body Mass Index 20.36 kg/m2 11/27/2022 12:06 Initial 39980 -5 LOINC Systolic Blood Pressure 186 mm[Hg] [...] O2 Saturation 97 % 2022 15:39 Initial 19386 -5 LOINC Pulse 72.0 /min 11/27/2022 15:39 Most Recent 8867- 4 LOINC Pulse 72.0 /min 11/27/2022 12:06 Initial 8867- 4 LOINC Respiration 18 /min 11/27/19 15:39 Initial 9279- 1 LOINC Temperature 37.2 Irma 99.0 F 11/27/19 12:06 Initial 8310- 5 LOINC Weight 58.97 kg 130.00 lbs 11/27/2022 12:06 Initial 99845 -7 LOINC Assessment You had the following problems:CREST SYNDROMEHTNDEPRESSIONGOUT Hospital Discharge Instructions Should you have any questions prior to discharge, please contact a member of your healthcare team. If you have left the hospital and have any questions, please contact your primary care physician. Reason For Referral No Data Found Problems Problem Start Date Resolved Date Status Code Code System CREST SYNDROME active 34074342 SNOME D-CT HTN active 27042519 SNOMED-CT DEPRESSION active 32146711 SNOMED-CT GOUT active 66262361 SNOMED-CT Allergies and Adverse Reactions Allergy Substance Reaction Severity Start Date Concern Status Co de Code System No Known Drug Allergies Active 151955172 SNOMED-CT Plan of Treatment CT HEAD W/O [...]
--- OUTSIDE RECORDS SUMMARY | 2024-06-07 15:58 | XMS_ITS | Clinical Summary ---
Author Organization Counts Include [facility] Address [facility] [place] [address] Care Team Providers Care Occupational Medicine Specialist Name Role Phone Justen Puckett DMD Primary Care Provider [phone] Medications Medication Sig Dispensed Refills Start Date End Date Status allopurinoL (Zyloprim) 100 mg tablet Take 100 mg by mouth Daily. Active amLODIPine (Norvasc) 5 mg tablet Take 5 mg by mouth daily. 06/04/2023 Active bicalutamide (Casodex) 50 mg tablet Take 50 mg by mouth daily. FOR 14 DAYS 06/08/2023 Active sertraline (Zoloft) 100 mg tablet Take 100 mg by mouth daily. 06/10/2023 Active fluticasone propionate (Flonase) 50 mcg/actuation [place], Suspension SHAKE LIQUID AND USE 1 SPRAY IN EACH NOSTRIL TWICE DAILY 03/01/2023 Active omeprazole (PriLOSEC) [address] capsule Take 20 mg by mouth 2 times daily. Active mirtazapine (Remeron) 15 mg tablet Take 15 mg by mouth nightly. 07/27/2023 Active finasteride (Proscar) 5 mg tablet Take 5 mg by mouth daily. 07/09/2023 Active Social History Tobacco Use Types Packs/Day Years Used Date Smoking Tobacco: Never Assessed Sex and Gender Information Value Date Recorded Sex Assigned at Not on file Gender Identity Not on file Sexual Orientation Not on file Plan of Treatment Health Maintenance Due Date Last Done Comments Hepatitis C Screening 1964 Tdap adult 1965 Tetanus vaccine 1965 Zoster vaccine (1 of 2) 1996 Advance Directive 2001 Pneumoccocal Vaccine: 65+ (1 of 1 - PCV) 2011 Covid-19 Vaccine (2022-24 season) 2023 Influenza (Flu) vaccine (1 o f 1 - Influenza standard series) 07/10/2024 Care Teams Occupational Medicine Specialist Relationship Specialty Start Date End Date Justen Puckett DMD [address] [place], [place] [address] PCP - General Dental Drop Wirer 07/25/23
--- OUTSIDE RECORDS SUMMARY | 2024-06-07 15:58 | XMS_ITS | Encounter Summary ---
[place] [address] Care Team Providers Care Ball Sorter Name Role Phone Justen Puckett DMD Primary Care Provider [phone] Reason for Referral * Consultation (Routine) - Authorized Specialty Diagnoses / Procedures Referred By Ronny saldaña Referred To Contact Rheumatology Diagnoses CRST syndrome Dysphagia, unspecified type Yumiko Chandra MD [address] [place] [address] [facility] Rhe[facility]ology [address] [place] [phone] Referral ID Status Reason Start Date Expiration Date Visits Requested Visits Authorized [id number] Authorized Consult, Test & Treat PCP Updated and/or Approved 07/25/2023 07/24/2024 6 6 Encounter Details Date Type Department Care Team (Latest Contact Info) Description 07/25/2023 Transcribe Orders eDH Incoming Referrals [phone] Jusetn Puckett DMD [address] [place] [address] CRST syndrome; Dysphagia, unspecified type Social History Tobacco Use Types Packs/Day Years Used Date Smoking Tobacco: Never Assessed Sex and Gender Information Value Date Recorded Sex Assigned at Not on file Gender Identity Not on file Sexual Orientation Not on file documented as of this encounter Plan of Treatment Scheduled Referrals Name Type Priority Associated Diagnoses Orde r Schedule Referral to Rheumatology Outpatient Referral Routine CRST syndrome Dysphagia, unspecified type Ordered: 07/25/2023 documented as of this encounter Visit Diagnoses Diagnosis CRST syndrome Systemic sclerosis Dysphagia, unspecified type documented in this encounter Care Teams Ball Sorter Relationship Specialty Start Date End Date Italo LIZETH Campuzano [address] [place] [address] PCP - General Dental Blurb Writer 07/25/23 documented as of this encounter
--- OUTSIDE RECORDS SUMMARY | 2024-06-07 15:59 | XMS_ITS ---
Author Organization Unknown Address [address] [place] [phone] Phone Care Team Providers Care Builder'S Labourer Name Role Phone OSIRIS Dhillon Attending Unavailable HOA Reyes Primary Unavailable Results NM BONE SCAN WHOLE BODY - Co mpleted: 05/07/2023 13:26 LOINC: RADIOLOGY [place], [place] [address] PACS PLASMA TABLE OPERATOR REPORT Patient Name: ANN CAO MRN: Sex: : Age: [id number] M 1945 77 Account: Accession: Admit: StayType: [id number] 05/07/2023 O/P Ordered: Order ID: Submitted: Ordering Provider: 05/07/2023 09:08 [id number] KT ALKA NEWELL Completed: Technologist: Resulted: 05/07/2023 13:26 HTP 05/08/2023 06:13 Study Description: NM BONE SCAN WHOLE BODY Study Reason: PROSTATE CANCER Technique: The patient received 21.8 mCi of technetium 99 M and whole-body imaging was performed. Comparison: Comparison chest x-rays 11/27/2022. FINDINGS: There is activity seen in the axial and appendicular skeleton in the normal distribution. There are areas of increased up to seen in the shoulders bilaterally which is likely degenerative. There is increased radiotracer uptake seen in contiguous right ribs laterally consistent with the patient's recent rib fractures. There is a focus of increased radiotracer uptake involving the left inferior pubic ramus. The bony metastatic deposit cannot be excluded. There is normal activity seen in the kidneys and urinary bladder. IMPRESSION: 1. Focus of increased uptake seen in the left inferior pubic ramus. Osseous metastatic deposit cannot be excluded. Plain film correlation or MRI should be considered for further evaluation. Report Digitally Signed by Vel Cardoza on 05/08/2023 06:13 AM EDT 05/08/[email or web address].to [place] via fax Social History Type Status Start Date End Date Code Code Syst em Smoking History Former smoker 8546011 SNOMED CT Sex Male Assessment You had [...] Status Code Code System CREST SYNDROME active 68960328 SNOME D-CT HTN active 36979330 SNOMED-CT DEPRESSION active 33128045 SNOMED-CT GOUT active 65979401 SNOMED-CT Allergies and Adverse Reactions Allergy Substance Reaction Severity Start Date Concern Status Co de Code System No Known Drug Allergies Active 324641429 SNOMED-CT Plan of Treatment CT HEAD W/O CONTRAST 06/25/2023 X-RAY 05/26/2023 NM BONE SCAN WHOLE BODY 05/07/2023 US GUIDED NEEDLE BIOPSY 04/08/2023 Encounters Encounter Diagnosis Start Date Code Code Sys tem Primary malignant neoplasm of prostate 05/07/2023 93 484064 SNOMED-CT Personal Care Team Section Performer Name Performer Role Active Date Inactive Da te
--- OUTSIDE RECORDS SUMMARY | 2024-06-07 15:59 | XMS_ITS ---
Author Organization Unknown Address [address] [place] [phone] Phone Care Team Providers Care Habilitation Assistant Name Role Phone OSIRIS Dhillon Attending Unavailable HOA Reyes Primary Unavailable Results US PROSTATE BIOPSY* - Comple kelton: 04/08/2023 13:33 LOINC: [place], [place] [address] PACS HEAD KNITTING MACHINE FIXER REPORT Patient Name: ANN CAO MRN: Sex: : Age: [id number] M 1945 77 Account: Accession: Admit: StayType: [id number] 04/08/2023 O/P Ordered: Order ID: Submitted: Ordering Provider: 04/08/2023 12:55 [id number] ALKA MEDINA Completed: Technologist: Resulted: 04/08/2023 13:33 [facility] 04/08/2023 13:41 Study Description: US PROSTATE BIOPSY Study Reason: Biopsy TECHNIQUE: Transrectal ultrasound guidance was provided for prostate biopsy performed by the urologist. COMPARISON: No exams were available for comparison FINDINGS: Images supplied revealed the targeted prostate gland IMPRESSION: As above. Report Digitally Signed by Shabbir Shelley on 04/08/2023 01:41 PM EDT 04/08/[email or web address].to [place] via fax Social History Type Status Start Date End Date Code Code Syst em Smoking History Former smoker 6229893 SNOMED CT Sex Male Assessment You had [...] Status Code Code System CREST SYNDROME active 69340432 SNOME D-CT HTN active 77288054 SNOMED-CT DEPRESSION active 17222415 SNOMED-CT GOUT active 58971565 SNOMED-CT Allergies and Adverse Reactions Allergy Substance Reaction Severity Start Date Concern Status Co de Code System No Known Drug Allergies Active 827937778 SNOMED-CT Plan of Treatment CT HEAD W/O CONTRAST 06/25/2023 X-RAY 05/26/2023 NM BONE SCAN WHOLE BODY 05/07/2023 US GUIDED NEEDLE BIOPSY 04/08/2023 Encounters Encounter Diagnosis Start Date Code Code Sys tem Malignant neoplasm of prostate 04/08/2023 SNOMED-CT Personal Care Team Section Performer Name Performer Role Active Date Inactive Da te
--- OUTSIDE RECORDS SUMMARY | 2024-06-07 16:00 | XMS_ITS ---
Author Organization Unknown Address [address] [place] [phone] Phone Care Team Providers Care Heater Helper Name Role Phone GARRET Aguila Attending Unavailable HOA Reyes Primary Unavailable Results CT HEAD WO CONTRAST - Comple kelton: 06/04/2023 15:37 LOINC: [facility] RADIOLOGY [place], [place] [address] PACS MICROBIOLOGY COORDINATOR REPORT Patient Name: ANN CAO MRN: Sex: : Age: [id number] M 1945 77 Account: Accession: Admit: StayType: [id number] 06/04/2023 O/P Ordered: Order ID: Submitted: Ordering Provider: 06/04/2023 15:08 [id number] VLADIMIR MARTINEZ Completed: Technologist: Resulted: 06/04/2023 15:37 TXC 06/04/2023 15:58 Study Description: CT HEAD WO CONTRAST Study Reason: DIZZINESS Technique: Imaging Protocol: Axial computed tomography images with coronal and sagittal reformatted images were created and reviewed. Comparison: Comparison is made with prior examinations. FINDINGS: Ventricles and Extra axial spaces: Normal in size and morphology for the patient's age. Hemorrhage: None. Cerebral parenchyma: No evidence of an acute territorial infarct. Dystrophic calcifications are seen in the basal ganglia bilaterally. These are stable. There are areas of decreased attenuation in the white matter most consistent with small vessel ischemic disease. [place] of [place]: Unremarkable. Midline shift: None. Brainstem/Cerebellum: Normal. Calvarium: Normal. Visualized Paranasal sinuses/Mastoids: Clear. IMPRESSION: No acute intracranial process. Radiation Optimization: All CT scans at this facility use at least one of these dose optimization techniques: automated exposure control; mA and/or kV adjustment per patient size (includes targeted exams where dose is matched to clinical indication); or iterative reconstruction. Report Digitally Signed by Vel Cardoza on 06/04/2023 03:58 PM EDT 06/04/[email or web address].TXC.to [place] via fax Social History Type Status Start Date End Date Code Code Syst em Smoking History Former smoker 4326976 SNOMED CT Sex Male Assessment You had [...] Status Code Code System CREST SYNDROME active 98021485 SNOME D-CT HTN active 76727408 SNOMED-CT DEPRESSION active 40861617 SNOMED-CT GOUT active 29027161 SNOMED-CT Allergies and Adverse Reactions Allergy Substance Reaction Severity Start Date Concern Status Co de Code System No Known Drug Allergies Active 759377533 SNOMED-CT Plan of Treatment CT HEAD W/O CONTRAST 06/25/2023 X-RAY 05/26/2023 NM BONE SCAN WHOLE BODY 05/07/2023 US GUIDED NEEDLE BIOPSY 04/08/2023 Encounters Encounter Diagnosis Start Date Code Code Sys tem Dizziness 06/04/2023 155874605 SNOMED-CT Personal Care Team Section Performer Name Performer Role Active Date Inactive Da te
--- OUTSIDE RECORDS SUMMARY | 2024-06-07 16:00 | XMS_ITS ---
Author Organization Unknown Address [address], [place] [phone] Phone Care Team Providers Care Regeneration Operator Name Role Phone ANN IBRAHIM Registered Nurse Unavailable JEROMY Plummer Attending Unavailable HOA Reyes Primary Unavailable UNLISTED PROVIDER - REQUESTED Xhandoff Un available Results COMPREHENSIVE METABOLIC PANE L (CMP) - Collect Date/Time: 05/30/2023 13:36 [facility] ID: [id number] [address] [place], [place], [address] LOINC: 55791-3 Test Value Unit Reference Range Code Code [...] H=34 2028-9 LOINC ANION GAP 3.2 mmol/L 93654-4 LOINC CALCIUM SERUM 8.9 mg/dL L=8.2 H=10.2 06859-9 LOINC BILIRUBIN TOTAL 0.4 mg/dL L=0.0 H=1.3 1975-2 LOINC ALK. PHOS. 118 U/L L=46 H=116 6768-6 LOINC H SGOT (AST) 25 U/L L=15 H=37 1920-8 LOINC SGPT (ALT) 16 U/L L=12 H=78 1742-6 LOINC TOTAL PROTEIN 7.4 gm/dL L=6.0 H=8.0 2885-2 LOINC ALBUMIN 3.6 gm/dL L=3.4 H=5.0 1751-7 LOINC AGE 77 years eGFR (non-Afr.Amer.) 60 mL/min 29245-8 LOINC eGFR (Afr-Swiss) 73 mL/min 76411-1 LOINC CBC W/ DIFFERENTIAL* - Colle ct Date/Time: 05/30/2023 13:36 [facility] ID: [id number] [address] [place], [place], [address] LOINC: 95497-9 Test Value Unit Reference Range Code Code System Flag WBC 4.07 th/cmm L=5.00 H=10.00 6690-2 LOINC L NEUT % 66.8 % L=40.0 H=80.0 LYMPH % 17.9 % L=10.0 H=50.0 MONO % 7.9 % L=2.0 H=12.0 32069-8 LOINC EOS % 4.9 % L=0.0 H=8.0 BASO % 1.5 % L=0.0 H=3.0 IG % 1.0 % L=0.0 H=1.1 2514-8 LOINC NRBC % 0.0 % L=0.0 H=0.0 81202-0 LOINC NEUT abs count 2.7 th/cmm L=1.6 H=8.4 751-8 LOINC LYMPH abs count 0.7 th/cmm L=1.5 H=4.0 731-0 LOINC L MONO abs count 0.3 th/cmm L=0.2 H=1.0 742-7 LOINC EOS abs count 0.2 th/cmm L=0.0 H=0.5 711-2 LOINC BASO abs count 0.1 th/cmm L=0.0 H=0.2 704-7 LOINC IG abs count 0.0 th/cmm L=0.0 H=0.1 14941-0 LOINC NRBC abs count 0.0 mil/cmm L=0.0 H=0.0 83842-3 LOINC RBC 4.65 mil/cmm L=4.30 H=6.20 789-8 [...] CONTRAST - Com pleted: 05/30/2023 15:11 LOINC: [facility] [place], [place] [address] PACS SNAGGER REPORT Patient Name: ANN CAO MRN: Sex: : Age: [id number] M 1945 77 Account: Accession: Admit: StayType: [id number] 05/30/2023 E/R Ordered: Order ID: Submitted: Ordering Provider: 05/30/2023 14:33 [id number] VARGAS ARCINIEGA Completed: Technologist: Resulted: 05/30/2023 15:11 TXC 05/30/2023 15:49 Study Description: CT CHEST W IV CONTRAST Study Reason: Trauma Technique: Imaging Protocol: Axial computed tomography images with coronal and sagittal reformatted images were created and reviewed. Comparison: Comparison is made with prior chest x-ray. FINDINGS: There is patient motion artifact. Tracheobronchial tree: Patent where visualized. Pulmonary parenchyma: No consolidation or dominant measurable mass. There is a 6 mm nodule adjacent to the right major fissure. There is a 4 mm nodule in the left lower lobe. Mediastinum and Jeanne: No dominant adenopathy or fluid collection. The esophagus is unremarkable. There is a small hiatal hernia. Pleura: No effusion or pneumothorax. Heart: Mild cardiomegaly. Mild to moderate coronary artery calcification is present. No pericardial effusion. Aorta: The ascending thoracic aorta measures 4.5 cm. There is atherosclerosis. No evidence of dissection. Upper abdomen: Unremarkable. Lymph nodes: Within normal limits. Tubes, Catheters, and Lines: None. Soft tissues: Unremarkable. Bones: Degenerative changes seen in the spine. No suspicious lytic or sclerotic lesions are seen. There is subacute fractures involving the posterior aspects of the right eighth and ninth ribs with callus formation. IMPRESSION: 1. No acute pulmonary process. 2. Pulmonary nodules. In low risk patients, optional 1 year follow-up CT scan of the chest may be obtained. In the high risk patients (history of smoking or other risk factors), CT scan in 1 year is recommended for further evaluation. (Serenity et al., 2017). 3. Subacute fractures involving the right eighth and ninth ribs. Findings were discussed with Dr. Martin at 3:48 PM on 05/30/2023. Radiation Optimization: All CT scans at this facility use at least one of these dose optimization techniques: automated exposure control; mA and/or kV adjustment per patient size (includes targeted exams where dose is matched to clinical indication); or iterative reconstruction. Report Digitally Signed by Vel Cardoza on 05/30/2023 03:[address] HEAD AND CSPINE ANGELIQUE JURADO* - Completed: 05/30/2023 15:11 LOINC: [facility] [place], [place] [address] PACS SNAGGER REPORT Patient Name: ANN CAO MRN: Sex: : Age: [id number] M 1945 77 Account: Accession: Admit: StayType: [id number] 05/30/2023 E/R Ordered: Order ID: Submitted: Ordering Provider: 05/30/2023 14:16 [id number] VARGAS ARCINIEGA Completed: Technologist: Resulted: 05/30/2023 15:11 TXC 05/30/2023 15:41 Study Description: CT HEAD AND CSPINE WO CONTRAST* Study Reason: Trauma Technique: Imaging Protocol: Axial computed tomography images with coronal and sagittal reformatted images were created and reviewed. Comparison: Comparison is made with prior examinations. FINDINGS: CT Head: Ventricles and Extra axial spaces: Normal in size and morphology for the patient's age. Hemorrhage: None. Cerebral parenchyma: There is no evidence of an acute territorial infarct. There is small vessel ischemic disease present. Midline shift: None. Brainstem/Cerebellum: Normal. Calvarium: Normal. Visualized Paranasal sinuses/Mastoids: Clear. Soft Tissues: Unremarkable. CT Cervical Spine: Bones: No acute fracture or subluxation. There are degenerative changes seen in the cervical spine. There is straightening of the normal cervical lordosis. This is likely due to patient positioning. Soft Tissues: Unremarkable. Lung Apices: Clear. IMPRESSION: 1. No acute intracranial process. 2. No acute fracture or subluxation in the cervical spine. Radiation Optimization: All CT scans at this facility use at least one of these dose optimization techniques: automated exposure control; mA and/or kV adjustment per patient size (includes targeted exams where dose is matched to clinical indication); or iterative reconstruction. Report Digitally Signed by Vel Cardoza on 05/30/2023 03:41 PM EDT Social History Type Status Start Date End Date Code Code Syst em Smoking History Former smoker 0996741 SNOMED CT Sex Male Vital Signs Vital Sign Value Unit Peñuelas Value Peñuelas Unit Date/Time Recent/Initial? Code Code System Systolic Blood Pressure 181 mm[Hg] 05/30/2023 17:17 Most Recent 8480-6 LOINC Diastolic Blood Pressure 98 mm[Hg] 05/30/2023 17:17 Most Recent 8462-4 LOINC Systolic Blood Pressure 202 mm[Hg] 05/30/2023 14:24 Initial 8480-6 LOINC Diastolic Blood Pressure 129 mm[Hg] 05/30/2023 14:24 Initial 8462-4 LOINC O2 Saturation 98 % 2022 17:17 Most Recent 04917- 5 LOINC O2 Saturation 98 % 2022 14:24 Initial 09443- 5 LOINC Pulse 87.0 /min 05/30/2023 17:17 Most Recent 8867-4 LOINC Pulse 89.0 /min 05/30/2023 14:24 Initial 8867-4 LOINC Respiration 19 /min 05/30/20 23 17:17 Most Recent 9279-1 LOINC Respiration 18 /min 05/30/20 14:24 Initial 9279-1 LOINC Temperature 37.4 Irma [...] Status Code Code System CREST SYNDROME active 03116514 SNOME D-CT HTN active 29311889 SNOMED-CT DEPRESSION active 96174443 SNOMED-CT GOUT active 31044118 SNOMED-CT Allergies and Adverse Reactions Allergy Substance Reaction Severity Start Date Concern Status Co de Code System No Known Drug Allergies Active 837335774 SNOMED-CT Plan of Treatment CT HEAD W/O CONTRAST 06/25/2023 X-RAY 05/26/2023 NM BONE SCAN WHOLE BODY 05/07/2023 US GUIDED NEEDLE BIOPSY 04/08/2023 Encounters Encounter Diagnosis Start Date Code Code Sys tem Contusion of head 05/30/2023 615733894 SNOMED-CT Personal Care Team Section Performer Name Performer Role Active Date Inactive Da te
--- OUTSIDE RECORDS SUMMARY | 2024-06-07 16:00 | XMS_ITS ---
Author Organization Unknown Address [address] [place] [phone] Phone Care Team Providers Care Mill Attendant Name Role Phone OSIRIS Dhillon Attending Unavailable HOA Reyes Primary Unavailable Results XR PELVIS 1V OR 2V - Complet ed: 05/26/2023 14:28 LOINC: [facility] [place], [place] [address] PACS CLINICAL TRIALS SYSTEMS ADMINISTRATOR REPORT Patient Name: ANN CAO MRN: Sex: : Age: [id number] M 1945 77 Account: Accession: Admit: StayType: [id number] 05/26/2023 O/P Ordered: Order ID: Submitted: Ordering Provider: 05/26/2023 14:17 [id number] KT ALKA NEWELL Completed: Technologist: Resulted: 05/26/2023 14:28 KMD 05/26/2023 14:38 Study Description: XR PELVIS 1V OR 2V Study Reason: ABN BONE SCAN Technique: 2D digital imaging was performed. 1 views were obtained. COMPARISON: Bone scan 07 May 2023 FINDINGS: Bones: No bony lytic or blastic lesion is seen. No abnormalities seen in the region of the left inferior pubic ramus. Joints: No dislocation is present. The joint spaces are maintained. There is acetabular spurring. There are advanced degenerative changes in the lower lumbar spine. The SI joints are unremarkable. Soft tissues: Unremarkable. IMPRESSION: No evidence of abnormality in the left inferior pubic ramus. The findings on plain film could represent urine contamination. MRI could be considered for further evaluation. Report Digitally Signed by Mariana Childs on 05/26/2023 02:38 PM EDT 05/26/[email or web address] [facility] [place] via fax Social History Type Status Start Date End Date Code Code Syst em Smoking History Former smoker 2470006 SNOMED CT Sex Male Assessment You had [...] Status Code Code System CREST SYNDROME active 35557857 SNOME D-CT HTN active 82439790 SNOMED-CT DEPRESSION active 67094853 SNOMED-CT GOUT active 12294860 SNOMED-CT Allergies and Adverse Reactions Allergy Substance Reaction Severity Start Date Concern Status Co de Code System No Known Drug Allergies Active 493832721 SNOMED-CT Plan of Treatment CT HEAD W/O [...]
--- OUTSIDE RECORDS SUMMARY | 2024-06-07 16:01 | XMS_ITS ---
Author Organization Unknown Address [address] [place] [phone] Phone Care Team Providers Care Air Traffic Controller Center Name Role Phone OSIRIS Dhillon Attending Unavailable HOA Reyes Primary Unavailable Results PSA DIAG PROSTATE SPECIFIC A NTIGEN * - Collect Date/Time: 10/06/2023 11:35 [facility] ID: [id number] [address] [place] [address] LOINC: 2857-1 Test Value Unit Reference Range Code Code System Flag PSA 1.05 ng/mL L=0.00 H=6.50 2857-1 LOINC Social History Type Status Start Date End Date Code Code Syst em Smoking History Former smoker 7884128 SNOMED CT Sex Male Assessment You had [...] Status Code Code System CREST SYNDROME active 60221613 SNOME D-CT HTN active 01359865 SNOMED-CT DEPRESSION active 87075546 SNOMED-CT GOUT active 89545325 SNOMED-CT Allergies and Adverse Reactions Allergy Substance Reaction Severity Start Date Concern Status Co de Code System No Known Drug Allergies Active 010083198 SNOMED-CT Plan of Treatment CT HEAD W/O CONTRAST 06/25/2023 X-RAY 05/26/2023 NM BONE SCAN WHOLE BODY 05/07/2023 US GUIDED NEEDLE BIOPSY 04/08/2023 Encounters Encounter Diagnosis Start Date Code Code Sys tem Malignant neoplasm of prostate 10/06/2023 SNOMED-CT Personal Care Team Section Performer Name Performer Role Active Date Inactive Da te
--- OUTSIDE RECORDS SUMMARY | 2024-06-07 16:01 | XMS_ITS ---
Author Organization Unknown Address [address] [place] [phone] Phone Care Team Providers Care Farm Equipment Mechanic Name Role Phone GARRET Aguila Attending Unavailable HOA Reyse Primary Unavailable Results CT HEAD WO CONTRAST - Comple kelton: 06/25/2023 14:47 LOINC: RADI[facility]Y [place], [place] [address] PACS MEDICAL ATTENDANT REPORT Patient Name: ANN CAO MRN: Sex: : Age: [id number] M 1945 77 Account: Accession: Admit: StayType: [id number] 06/25/2023 O/P Ordered: Order ID: Submitted: Ordering Provider: 06/25/2023 14:05 [id number] KT VLADIMIR COMBS Completed: Technologist: Resulted: 06/25/2023 14:47 SLG 06/25/2023 14:52 Study Description: CT HEAD WO CONTRAST Study Reason: HX HEAD INJURY COMPARISON: 04 June 2023 FINDINGS: Ventricles and Extra axial spaces: Normal in size and morphology for the patient's age. Hemorrhage: None. Cerebral parenchyma: Mild atrophy. Mild white matter changes and small vessel disease. Stable basal ganglia calcifications. No evidence of acute infarct or mass. Midline shift: None. Brainstem/Cerebellum: Normal. Calvarium: Normal. Visualized Paranasal sinuses/Mastoids: Clear. Soft Tissues: Unremarkable. IMPRESSION: No acute intracranial process. Report Digitally Signed by Mariana Childs on 06/25/2023 02:52 PM EDT Social History Type Status Start Date End Date Code Code Syst em Smoking History Former smoker 6090541 SNOMED CT Sex Male Assessment You had [...] Status Code Code System CREST SYNDROME active 80053583 SNOME D-CT HTN active 45136635 SNOMED-CT DEPRESSION active 20397010 SNOMED-CT GOUT active 80508525 SNOMED-CT Allergies and Adverse Reactions Allergy Substance Reaction Severity Start Date Concern Status Co de Code System No Known Drug Allergies Active 821535862 SNOMED-CT Plan of Treatment CT HEAD W/O CONTRAST 06/25/2023 X-RAY 05/26/2023 NM BONE SCAN WHOLE BODY 05/07/2023 US GUIDED NEEDLE BIOPSY 04/08/2023 Encounters Encounter Diagnosis Start Date Code Code Sys tem Dizziness and giddiness 06/25/2023 SNOM ED-CT Personal Care Team Section Performer Name Performer Role Active Date Inactive Da te
--- OUTSIDE RECORDS SUMMARY | 2024-06-07 16:01 | XMS_ITS ---
Author Organization Unknown Address [address] [place] [phone] Phone Care Team Providers Care Assistant Professor Of Drama Name Role Phone KETAN DO Temi Attending Unavailable HOA Reyes Primary Unavailable Social History Type Status Start Date End Date Code Code Syst em Smoking History Former smoker 5854041 SNOMED CT Sex Male Assessment You had [...] Status Code Code System CREST SYNDROME active 61839195 SNOME D-CT HTN active 04672650 SNOMED-CT DEPRESSION active 21943257 SNOMED-CT GOUT active 71867317 SNOMED-CT Allergies and Adverse Reactions Allergy Substance Reaction Severity Start Date Concern Status Co de Code System No Known Drug Allergies Active 027294473 SNOMED-CT Plan of Treatment CT HEAD W/O CONTRAST 06/25/2023 X-RAY 05/26/2023 NM BONE SCAN WHOLE BODY 05/07/2023 US GUIDED NEEDLE BIOPSY 04/08/2023 Encounters Encounter Diagnosis Start Date Code Code Sys tem Encounter for antineoplastic chemotherapy 07/03/2023 SNOMED-CT Personal Care Team Section Performer Name Performer Role Active Date Inactive Da te
--- OUTSIDE RECORDS SUMMARY | 2024-06-07 16:01 | XMS_ITS ---
Author Organization Unknown Address [address] [place] [phone] Phone Care Team Providers Care Flight Dispatcher Name Role Phone OSIRIS Dhillon Attending Unavailable HOA Reyes Primary Unavailable Results URINALYSIS MICROSCOPIC ONLY - Collect Date/Time: 09/08/2023 11:30 [facility] ID: [id number] [address] [place], [place], [address] LOINC: 48518-7 Test Value Unit Reference Range Code Code System Flag WBCs 25-100 0-5 / hpf 80551-5 LOINC RBCs 10-25 0-5 / hpf 63062-7 LOINC Epith cells none 0-5 / hpf Crystals none none Bacteria large none Mucus none none Casts none none /lpf Other Social History Type Status Start Date End Date Code Code Syst em Smoking History Former smoker 5439903 SNOMED CT Sex Male Assessment You had [...] Status Code Code System CREST SYNDROME active 51910210 SNOME D-CT HTN active 69215781 SNOMED-CT DEPRESSION active 14556192 SNOMED-CT GOUT active 57461600 SNOMED-CT Allergies and Adverse Reactions Allergy Substance Reaction Severity Start Date Concern Status Co de Code System No Known Drug Allergies Active 565720211 SNOMED-CT Plan of Treatment CT HEAD W/O CONTRAST 06/25/2023 X-RAY 05/26/2023 NM BONE SCAN WHOLE BODY 05/07/2023 US GUIDED NEEDLE BIOPSY 04/08/2023 Encounters Encounter Diagnosis Start Date Code Code Sys tem Blood in urine 09/08/2023 11922218 SNOMED-CT Personal Care Team Section Performer Name Performer Role Active Date Inactive Da te
--- OUTSIDE RECORDS SUMMARY | 2024-06-07 16:02 | XMS_ITS ---
Author Organization [facility] Address [address] [place] [address] Care Team Providers Care Tanning Salon Attendant Name Role Phone Maritza Dubon Primary Care Provider Cheli Baker Unavailable [phone] ALLERGIES No Known Allergies REASON FOR VISIT Cysto microscopic hematuria MEDICATIONS Medication SIG (Take, Route, Frequency, Duration) Notes Start Date End Date Status Ciprofloxacin HCl 500 MG 1 tablet Orally 1 dose Active Flonase 50 MCG/DOSE 1 spray in each nost ril Nasally Once a day for 30 day(s) Active Myrbetriq 25 MG 1 tablet Orally Once a day for 30 days 09/08/2023 Active Lupron Depot (3-Month) 22.5 MG as directed Intramuscular 07/19/2023 Ac tive Sertraline HCl 100 MG 1 tablet Orally On ce a day for 30 day(s) Active Omeprazole 20 MG 1 capsule 30 minutes before morning meal Orally Once a day for 30 day(s) Active Allopurinol 100 MG 1 tablet Orally Once a day for 30 day(s) Active SOCIAL HISTORY Tobacco Use: Social History Observation Description Date Details (start date - stop date) Former Smoker NA - NA Sex Assigned At : Social History Observation Description Sex Assigned At Unknown Tobacco Use/Smoking: Question Answer Notes Are you a former smoker VITAL SIGNS Blood pressure systolic 130 mm Hg 10/06/20 23 Blood pressure diastolic 70 mm Hg 023 Height 66.4 in 10/06/2023 Weight 130 lbs 10/06/2023 BMI 20.73 kg/m2 10/06/2023 Encounters Encounter Location Date Provider Diagnosis [facility] [address] [place] [address] 10/06/2023 Cheli Keith Asymptomatic microscopic hematuria R31.21 ASSESSMENTS Encounter Date Diagnosis Assessment Notes Treatment Notes Treatment Clinical Notes 10/06/2023 Asymptomatic microscopic hematuria (ICD-10 - R31.21) 10/06/2023 Other The patient was prepped and [...] 1 dose given pre-procedure PLAN OF TREATMENT Medication Medication Name Sig Start Date Stop Date Notes Finasteride 5 MG 1 tablet Orally Once a day Ciprofloxacin HCl 500 MG 1 tablet Orally 1 dose 10/22/2023 Treatment Notes Assessment Notes Other The patient was prep ped and draped in the normal sterile fashion, [...] 500mg Cipro x 1 dose given pre-procedure Next Appt Details Follow Up: 6 Months, Reason: Prostate cancer needs PSA prior Progress Notes * KRISTIN CAODOB: (78 yo M)Acc No.[id number]:10/06/2023 Progress Notes Patient:??BETINA ACO Provider:??[facility] MD :1945?Age:78 Y?Sex:Ma le Date:10/06/2023 Address:[address] , [place], [phone] Pcp:Maritza Dubon Subjective: * Chief Complaints: * ?Cysto microscopic nessa turia * HPI: ?Constitutional:? The patient returns in follow-up for his recent history of microscopic hematuria he is here for cystoscopy to complete the hematuria workup. He is also being treated for metastatic prostate cancer and has not had a recent PSA he will go to the hospital today and have that blood work done. He has not had any side effects from the Lupron no extra fatigue, no hot flashes. He has not had any gross hematuria. He remains on finasteride and can probably discontinue it at this time as he is using Lupron for treatment which maximally decreases prostate size. * ROS:?All Other Systems:?Review of Systems (ROS)??See HPI for details. Medications, Medical History, Allergies, Social History, Surgical History, and ROS reviewed and updated with the patient today.? * Medical History:?? * Surgical History:??Circumcis ion Tonsils Back Prostate Biopsy - Janki 8 03/2023 * Hospitalization/Major Diagno stic Procedure:??No Hospitalization History. * Family History:??Father: dec eased.??Mother: .?? No prostate cancer in the immediate family. * Social History:?Tobacco Use:?Tobacco Use/Smoking?Are you a??former smoker ?Miscellaneous:?Housing: owns a home. ?Living with: spouse. ?Marital status: . ?Occupation: Retired. ?Retired [employer]. * Medications:??TakingFlonase 50 MCG/DOSE Inhaler 1 spray in each nostril Nasally Once a daySertraline HCl 100 MG Tablet 1 tablet Orally Once a dayFinasteride 5 MG Tablet 1 tablet Orally Once a dayAllopurinol 100 MG Tablet 1 tablet Orally Once a dayOmeprazole 20 MG Capsule Delayed Release 1 capsule 30 minutes before morning meal Orally Once a dayLupron Depot (3-Month) 22.5 MG Kit as directed Intramuscular Myrbetriq 25 MG Tablet Extended Release 24 Hour 1 tablet Orally Once a dayMedication List reviewed and reconciled with the patientTaking Flonase 50 MCG/DOSE Inhaler 1 spray in each nostril Nasally Once a dayTaking Sertraline HCl 100 MG Tablet 1 tablet Orally Once a dayTaking Finasteride 5 MG Tablet 1 tablet Orally Once a dayTaking Allopurinol 100 MG Tablet 1 tablet Orally Once a dayTaking Omeprazole 20 MG Capsule Delayed Release 1 capsule 30 minutes before morning meal Orally Once a dayTaking Lupron Depot (3-Month) 22.5 MG Kit as directed Intramuscular Taking Myrbetriq 25 MG Tablet Extended Release 24 Hour 1 tablet Orally Once a dayMedication List reviewed and reconciled with the patient * Allergies:??N.K.D.A.no[Aller gies Verified] Objective: * Vitals:??BP: 130/70 mm Hg, W t: 130 lbs, BMI: 20.73 Index, Ht: 66.4 in, Ht-cm: 168.66 cm, Wt-k.97 kg. * Examination: ?General Examination: ?GENERAL APPEARANCE:?? pleasant, in no acute distress.?SKIN:?? normal, no rashes, no suspicious lesions, warm and dry.?LUNGS:?? normal.?PSYCH:?? alert, oriented.? Assessment: * Assessment: 1.??Asymptomatic microscopic hematuria - R31.21?? No evidence of bladder lesio ns most likely had some bleeding from his prostate. We will call him with the results of the PSA, if it remains low he may not need another Lupron at this point. We will follow his prostate cancer with serial PSAs. Plan: * Treatment: 2.??Others?? Notes: The patient was prepped and draped in [...] instructions. 500mg Cipro x 1 dose given pre-procedure? * ?Immunizations:?Immunization record has been reviewed and updated. * Procedure Codes:??40684 CYST [id number] PRES/ABSN URINE INCON [id number] BMI<30 AND >=22 [id number] DOC MEDS VERIFIED W/PT OR [id number] FLU IMMUNIZE ORDER/[id number] Pneum vax admin 60+ * Preventive Medicine:?Counseling:?Care goal follow-up plan:?BMI management provided??No , BMI within normal limits ?Screenings:?TOBACCO USE SCREENING:?The patient smoked:??no tobacco products * Follow Up:??6 Months (Reason : Prostate cancer needs PSA prior) * Images: * Sign off status: Completed Addendum: * ?? true * Provider:??Jeanne Keith MD Date:??2022 History and Physical Notes * Examination Category Sub-Category Detail Notes General Examination GENERAL APPEARANCE: pleasant , in no acute distress LUNGS: normal SKIN: normal, no rashes, n o suspicious lesions, warm and dry PSYCH: alert, oriented
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
--- OUTSIDE RECORDS SUMMARY | 2024-06-07 16:02 | XMS_ITS | Encounter Summary ---
Author Organization [facility] Address [address] [place] [address] Care Team Providers Care Senior Climate Advisor Name Role Phone KonstantingloriaYumiko Primary Care Provider [phone] Reason for Visit * Reason Onset Date Comments Review Treatment Options 06/10/2023 Encounter Details Date Type Department Care Team (Late st Contact Info) Description 06/10/2023 Telephone [facility] - [facility] [address] [place] [address] Fede Roman MD [address] [facility], [facility] [address] [place] [address] Review Treatment Options Social History Tobacco Use Types Packs/Day Years Used Date Smoking Tobacco: Never Assessed Sex and Gender Information Value Date Recorded Sex Assigned at Not on file Gender Identity Not on file Sexual Orientation Not on file documented as of this encounter Miscellaneous Notes * Telephone Encounter - Fede Roman MD - 06/10/2023 0818 EDT Mr. Weiss has metastatic Hickory 8 prostate cancer with bone scan showing pelvic metastatic disease. He was evaluated last week in this office by Dr. Dalal and patient has started bicalutamide.He was scheduled to come in tomorrow for the Lupron here but he lives in [place] which is much closer to Dr. Keith. Today I spoke with Shree and Dr. Keith's office and they are arranging for himto begin Lupron in [place] next week. We will cancel his appointment here and see him on an as-needed basis documented in this encounter Plan of Treatment Not on file documented as of this encounter Visit Diagnoses Not on filedocumented in this encounter Care Teams Senior Climate Advisor Relationship Specialty Start Date End Date Yumiko Chandra [address] [place] [address] PCP - General Internal Medicine - Primary Care 08/29/22 documented as of this encounter
--- OUTSIDE RECORDS SUMMARY | 2024-06-07 16:02 | XMS_ITS | Encounter Summary ---
Author Organization [facility] Address [address] [place] [address] Care Team Providers Care Sales And Marketing Engineer Name Role Phone Yumiko Chandra Primary Care Provider [phone] Reason for Referral * Radiology Services (Routine/Next Available) - Authorization Not Required Specialty Diagnoses / Procedures Referred By Contac t Referred To Contact Radiology Diagnoses Thoracic aortic ectasia (HCC-CMS) Procedures MR ANGIO CHEST WO CONTRAST MR ANGIO CHEST W WO CONTRAST Yumiko Chandra [address] [place] [address] [facility] Referral ID Status Reason Start Date Expiration Date Visits Requested Visits Authorized [id number] Authorization Not Required 08/17/2023 1 1 Reason for Visit * Radiology Services (Routine/Next Available) - Authorization Not Required Specialty Diagnoses / Procedures Referred By Contac t Referred To Contact Radiology Diagnoses Thoracic aortic ectasia (HCC-CMS) Procedures MR ANGIO CHEST WO CONTRAST MR ANGIO CHEST W WO CONTRAST Yumiko Chandra [address] [place] [address] [facility] Referral ID Status Reason Start Date Expiration Date Visits Requested Visits Authorized [id number] Authorization Not Required 08/17/2023 1 1 Encounter Details Date Type Department Care Team (Latest Contact Info) Description 10/14/2023 13:27 EST - 10/14/2023 23:59 EST Hospital Encounter Medical Center Radiology MRI - [facility] [address] [place] [address] Thoracic aortic ectasia (HCC-CMS) Discharge Disposition: Home or Self Care Social History Tobacco Use Types Packs/Day Years Used Date Smoking Tobacco: Never Assessed Sex and Gender Information Value Date Recorded Sex Assigned at Not on file Gender Identity Not on file Sexual Orientation Not on file documented as of this encounter Medications at Time of Discharge Medication Sig Dispensed Refills Start Date End Date allopurinoL (ZYLOPRIM) 100 mg tablet Take 1 Tablet by mouth daily. omeprazole (PRILOSEC) 20 mg capsule Take 1 Capsule by mouth daily. sertraline (ZOLOFT) 25 mg tablet Take 1 Tablet by mouth daily. documented as of this encounter Discharge Disposition Disposition Code Departure Means Destination Home or Self Care documented in this encounter Plan of Treatment Not on file documented as of this encounter Procedures Procedure Name Priority Date/Time Associated Diagnosis Comments MR ANGIO CHEST WO CONTRAST Routine 10/14/2023 15:13 EST Thoracic aortic ectasia (HCC-CMS) documented in this encounter Results * MR ANGIO CHEST WO CONTRAST (10/14/2023 15:13 EST) Anatomical Region Laterality Modality Chest Magnetic Resonan ce 10/14/2023 15:2 5 EST Impressions 10/14/2023 15:25 EST Findings/ Impression: The ascending aorta measures 3.8 cm in maximum diameter, unchanged from previously. The sinuses of Valsalva are normal size measuring 3.6 cm. The sinotubular junction is preserved. The descending aorta is mildly tortuous and atherosclerotic, but normal in size. The head vessels arise normally and do not appear to be narrowed. The cardiac chambers and central pulmonary arteries are normal size. There is no visible pericardial abnormality. IMPRESSION: Stable mild ascending aorta dilatation. This is within normal limits at this age and further follow-up is not felt to be necessary. [id number] Narrative 10/14/2023 15:25 EST MR ANGIO CHEST WO CONTRAST ??10/14/2023 2:00 PM Clinical History/Comments: Annual monitoring for AAA;I77.810:Thoracic aortic ectasia (HCC-CMS) Comparison: 10/07/[address] chest 05/30/2023 Technique: Noncontrast enhanced MRI of the chest was performed in multiple planes. Procedure Note Andrew Husain MD - 10/14/2023 MR ANGIO CHEST WO CONTRAST 10/14/2023 2:00 PM Clinical History/Comments: Annual monitoring for AAA;I77.810:Thoracic aortic ectasia (HCC-CMS) Comparison: 10/07/[address] chest 05/30/2023 Technique: Noncontrast enhanced MRI of the chest was performed in multipleplanes. IMPRESSION Findings/ Impression: The ascending aorta measures 3.8 cm in maximum diameter, unchanged frompreviously. The sinuses of Valsalva are normal size measuring 3.6 cm. Thesinotubular junction is preserved. The descending aorta is mildly tortuousand atherosclerotic, but normal in size. The head vessels arise normallyand do not appear to be narrowed. The cardiac chambers and centralpulmonary arteries are normal size. There is no visible pericardialabnormality. IMPRESSION: Stable mild ascending aorta dilatation. This is within normallimits at this age and further follow-up is not felt to be necessary. [id number] Yumiko Chandra [facility] [place] ORDERABLES documented in this encounter Visit Diagnoses Diagnosis Thoracic aortic ectasia (HCC-CMS) Thoracic aortic ectasia documented in this encounter Care Teams Sales And Marketing Engineer Relationship Specialty Start Date End Date Yumiko Chandra [address] [place] [address] PCP - General Internal Medicine - Primary Care 08/29/22 documented as of this encounter
--- OUTSIDE RECORDS SUMMARY | 2024-06-07 16:02 | XMS_ITS | Encounter Summary ---
Author Organization [facility] Address [address] [place] [address] Care Team Providers Care Highway Technician Name Role Phone Yumiko Chandra Primary Care Provider [phone] Reason for Visit * Reason Comments Prostate Cancer Encounter Details Date Type Department Care Team (Latest Contact Info) Description 06/05/2023 13:30 EDT Initial consult [facility] - [facility] [address] [place] [address] Duc Dalal MD [address] [place] [id number] Malignant neoplasm of prostate (HCC-CMS) (Primary Dx) Social History Tobacco Use Types Packs/Day Years Used Date Smoking Tobacco: Never Assessed Sex and Gender Information Value Date Recorded Sex Assigned at Not on file Gender Identity Not on file Sexual Orientation Not on file documented as of this encounter Last Filed Vital Signs Vital Sign Reading Time Taken Comments Blood Pressure 187/93 06/05/2023 1323 EDT Pulse 64 06/05/2023 1323 EDT Temperature - - Respiratory Rate 20 06/05/2023 1323 EDT Oxygen Saturation - - Inhaled Oxygen Concentration - - Weight 58.5 kg (129 lb) 06/05/2023 1323 EDT Height - - Body Mass Index - - documented in this encounter Ordered Prescriptions Prescription Sig Dispensed Refills Start Date End Da te bicalutamide (CASODEX) 50 mg tablet Take 1 Tablet by mouth daily for 14 days. 14 Tablet 06/05/2023 06/19/2023 documented in this encounter Progress Notes * Duc Dalal MD - 06/05/2023 1330 EDT Images from the original note were not included. Radiation Oncology Consultation Date of Service- 06/05/2023 Diagnosis: No primary diagnosis found. Referring Physician: No ref. provider found Diagnosis: Cancer Staging No matching staging information was found for the patient. IMPRESSION: Adenocarcinoma of the prostate gland Jasper 4+4 = 8 involving all biopsies, PSA 24, bone scan showing a pelvic bone lesion compatible with metastatic disease. RECOMMENDATION: This patient is a 77-year-old gentleman who has multiple concurrent medical problems. He has scleroderma which does tend to increase side effects of radiation therapy. He also has cachexia with a 30 pound weight loss over 2 years 10 pound weight loss over 6 months. The would not be a good candidatefor radiotherapy if 1 were to consider giving him definitive treatment. Also definitive treatment may not be indicated because his bone scan does show the suspicion for metastatic disease in the pelvis. This is corroborated by his MRI which also has the appearance of metastatic disease. I would recommend androgen deprivation therapy and to that end have started him on bicalutamide. After 1 week I would give him his first leuprolide injection. 1 could also consider placing him on Xtandi or Zytiga to supplement the leuprolide. I have placed him on bicalutamide today and he will return to Dr. Roman in a week. Dr. Roman agrees with my assessment he will likely get his first leuprolideinjection and then be returned to Dr. Keith for further androgen deprivation therapy. For now treating the metastatic disease in his pelvis does not seem urgent because he has minimal discomfort in that location only when I palpated deeply. The patient has a rather large prostate gland is catheterized and we can monitor his symptoms on androgen deprivation therapy to see whether palliative radiation is required to the prostate in the future. I believe that he will likely get by his local disease controlled by catheterization and androgen deprivation therapy and may never need prostate treatment. Patient will come back next week will have a leuprolide injection and will see Dr. Roman to go over these issues once again. HISTORY OF PRESENT ILLNESS: Patient is a 77 y.o. male who is referred for prostate carcinoma. This patient is in a rather poor health with multiple medical problems including weight loss lack of appetite scleroderma crest syndrome and now presents with a PSA that is elevated. Because of the PSA elevation at approximately 24 he underwent rectal exam showing a very enlarged prostate which is multinodular and firm throughout. 6 biopsies were taken of the prostate each of which was positive for prostate carcinoma. 1 was positive for Jasper 7 and the others were positive for Janki 8 carcinoma. Patient underwent a bone scan which showed the possibility of a left inferior pubic ramus lesion compatible with metastatic disease. No biopsy has been done of this bony site however with his PSA being so elevated with pain in this location and with high risk prostate carcinoma it is likely that this is metastatic disease. RADIOLOGY: Bone scan done at [facility] 05/07/2023 Degenerative changes in both shoulders there is increased uptake in the contiguous right ribs consistent with recent rib fractures there is a focus of radiotracer uptake involving the left inferior pubic ramus. The bony metastatic deposit could not be excluded. CT scan of the chest done at [facility] 05/30/2023 Pulmonary parenchyma shows 6 mm nodule adjacent to the right major fissure and a 4 mm nodule in theleft lower lobe. No dominant adenopathy or fluid collections are seen esophagus is unremarkable there is a small hiatal hernia. There is no effusion no pneumothorax mild cardiomegaly and a 4.5 cm diameter ascending thoracic aorta. There are degenerative changes stitches in the spine with no suspicious lytic or sclerotic lesions seen Laboratory PSA 10/24/20 6.7 02/03/23 25.[address] [facility] 04/08/2023 prostate right base Janki 8 2 cores +70% tissue involved with tumor Right mid Janki score 8 1 core positive out of 1 percentage of prostate tissue involved 90% Right apex prostate adenocarcinoma Janki 8 1 core +10% of tissue involved Left base prostate adenocarcinoma Jasper 4+32 cores +75% of tissue involved Left mid Janki a 1 core +70% of tissue Left apex prostate adenocarcinoma Janki 8 1 core +95% involvement PHYSICAL EXAM: No data found. ECOG performance Status: (2) Ambulatory and capable of self care, unable to carry out work activity, up and about > 50% or waking hours No nodes are palpable in the cervical supraclavicular or axillary regions bilaterally. Lungs are clear auscultation and percussion. Cardiac exam reveals normal heart sounds. Abdomen is soft and nontender with no organomegaly or mass. Rectal exam shows a large prostate gland partially obstructing the rectum. It is hard multinodular but not tender there is no bleeding on the examining finger. Percussion of bony prominences relatively nontender however the left pubic symphysis area is slightly tender to deep palpation. No past medical history on file. No past surgical history on file. No current outpatient medications on file. No current facility-administered medications for this visit. Not on File Social History Socioeconomic History ??? Marital status: Single Spouse name: Not on file ??? Number of children: Not on file ??? Years of education: Not on file ??? Highest education level: Not on file Occupational History ??? Not on file Tobacco Use ??? Smoking status: Not on file ??? Smokeless tobacco: Not on file Substance and Sexual Activity ??? Alcohol use: Not on file ??? Drug use: Not on file ??? Sexual activity: Not on file Other Topics Concern ??? Not on file Social History Narrative ??? Not on file Social Determinants of Health Financial Resource Strain: Not on file Food Insecurity: Not on file Transportation Needs: Not on file Physical Activity: Not on file Stress: Not on file Social Connections: Not on file Housing Stability: Not on file No family history on file. I spent a total of 60 minutes on the date of this encounter meeting with the patient and reviewing documentation/coordinating care as described in the above note. Duc Dalal MD documented in this encounter Plan of Treatment Not on file documented as of this encounter Visit Diagnoses Diagnosis Malignant neoplasm of prostate ([facility]-CMS)- Primary Malignant neoplasm of prostate documented in this encounter Historical Medications * This list may reflect changes made after this encounter. Medication Sig Dispensed Refills Start Date End Date sertraline (ZOLOFT) 25 mg tablet Take 1 Tablet by mouth daily. omeprazole (PRILOSEC) 20 mg capsule Take 1 Capsule by mouth daily. allopurinoL (ZYLOPRIM) 100 mg tablet Take 1 Tablet by mouth daily. added in this encounter Care Teams Highway Technician Relationship Specialty Start Date End Date Yumiko Chandra [address] [place] [address] PCP - General Internal Medicine - Primary Care 08/29/22 documented as of this encounter
--- OUTSIDE RECORDS SUMMARY | 2024-06-07 16:02 | XMS_ITS | Encounter Summary ---
Author Organization [facility] Address [address] [place] [address] Care Team Providers Care Construction Worker Name Role Phone Yumiko Chandra Primary Care Provider [phone] Reason for Visit * (Routine/Next Available) - Receiving Office to Obtain Authorization Specialty Diagnoses / Procedures Referred By Contac t Referred To Contact Procedures CT OUTSIDE IMAGES CHEST Imaging, External Referral ID Status Reason Start Date Expiration Date Visits Requested Visits Authorized [id number] Receiving Office to Obtain Authorization 06/05/2023 1 1 Encounter Details Date Type Department Care Team (Latest Contact Info) Description 05/30/2023 - 05/30/2023 0:04 EDT Hospital Encounter [facility] Secondary Reads [place] Discharge Disposition: Home or Self Care Social History Tobacco Use Types Packs/Day Years Used Date Smoking Tobacco: Never Assessed Sex and Gender Information Value Date Recorded Sex Assigned at Not on file Gender Identity Not on file Sexual Orientation Not on file documented as of this encounter Discharge Disposition Disposition Code Departure Means Destination Home or Self Care documented in this encounter Plan of Treatment Not on file documented as of this encounter Procedures Procedure Name Priority Date/Time Associated Diagnosis Comments CT OUTSIDE IMAGES CHEST Routine 05/30/2023 14:39 EDT documented in this encounter Results * CT OUTSIDE IMAGES CHEST (05/30/2023 14:39 EDT) Narrative 06/05/2023 14:39 EDT This is a non-reportable exam. External Imaging IMG OTHER IMAGING OR DERABLES documented in this encounter Visit Diagnoses Not on filedocumented in this encounter Care Teams Construction Worker Relationship Specialty Start Date End Date Yumiko Chandra [address] [place] [address] PCP - General Internal Medicine - Primary Care 08/29/22 documented as of this encounter
--- OUTSIDE RECORDS SUMMARY | 2024-06-07 16:02 | XMS_ITS ---
Author Organization [facility] Address [address] [place] [address] Care Team Providers Care Metal Furniture Assembly Supervisor Name Role Phone Maritza Dubon Primary Care Provider Unavailab Cheli López Unavailable [phone] Encounters Encounter Location Date Provider Diagnosis [facility] [address] [place] [address] 10/22/2023 [facility] PLAN OF TREATMENT No Information Progress Notes * ANN CAO JDOB: (78 yo M)Acc No.[id number]:10/22/2023 Patient:??BETINA CAO :1945?Age:78 Y?Sex:Mell kirit Address:[address] , [place], [address] * true * Date:??
--- OUTSIDE RECORDS SUMMARY | 2024-06-07 16:02 | XMS_ITS | Encounter Summary ---
Author Organization [facility] Address [address] [place] [address] Care Team Providers Care Rampman Name Role Phone Yumiko Chandra Primary Care Provider [phone] Encounter Details Date Type Department Care Team (Late st Contact Info) Description 04/26/2024 Lab Requisition [facility] Pathology & Laboratory Medicine - [facility] [address] [place] [address] Outr Resulting Lab, Provider Social History Tobacco Use Types Packs/Day Years Used Date Smoking Tobacco: Never Assessed Sex and Gender Information Value Date Recorded Sex Assigned at Not on file Gender Identity Not on file Sexual Orientation Not on file documented as of this encounter Plan of Treatment Not on file documented as of this encounter Procedures Procedure Name Priority Date/Time Associated Diagnosis Comments PSA TOTAL, DIAGNOSTIC Routine 04/25/2024 14:30 EDT documented in this encounter Results * (ABNORMAL) PSA TOTAL, DIAGNOSTIC (04/25/2024 14:30 EDT) PSA 9.8(H) <=6.5 ng/mL 04/26/2024 18:48 EDT [facility] Blood VENOUS BLOOD / Unknown 04/25/2024 14:30 EDT 04/26/2024 17:03 EDT Narrative [facility] - 04/26/2024 18:48 EDT NOTE: Serum PSA concentration should not be interpreted as absolute evidence for the presence or absence of malignant disease. Assayed on Siemens ADVIA Centaur XPT using chemiluminescent technology.??Values obtained by using different assay methods cannot be used interchangeably. Provider Outr Resulting Lab CHEMISTRY & BLOOD GAS ORDERABLES [facility] [address] [place] [address] documented in this encounter Visit Diagnoses Not on filedocumented in this encounter Care Teams Rampman Relationship Specialty Start Date End Date Yumiko Chandra [address] [place] [address] PCP - General Internal Medicine - Primary Care 08/29/22 documented as of this encounter
--- OUTSIDE RECORDS SUMMARY | 2024-06-07 16:02 | XMS_ITS ---
Author Organization Unknown Address [address] [place] [phone] Phone Care Team Providers Care Sling Operator Name Role Phone KETAN DO Temi Attending Unavailable HOA Reyes Primary Unavailable Social History Type Status Start Date End Date Code Code Syst em Smoking History Former smoker 2780655 SNOMED CT Sex Male Assessment You had [...] Status Code Code System CREST SYNDROME active 65623835 SNOME D-CT HTN active 07856832 SNOMED-CT DEPRESSION active 92272992 SNOMED-CT GOUT active 30083095 SNOMED-CT Allergies and Adverse Reactions Allergy Substance Reaction Severity Start Date Concern Status Co de Code System No Known Drug Allergies Active 773679924 SNOMED-CT Plan of Treatment CT HEAD W/O CONTRAST 06/25/2023 X-RAY 05/26/2023 NM BONE SCAN WHOLE BODY 05/07/2023 US GUIDED NEEDLE BIOPSY 04/08/2023 Encounters Encounter Diagnosis Start Date Code Code Sys tem Encounter for antineoplastic chemotherapy 05/10/2024 SNOMED-CT Personal Care Team Section Performer Name Performer Role Active Date Inactive Da te
--- OUTSIDE RECORDS SUMMARY | 2024-06-07 16:02 | XMS_ITS | Referral Summary ---
Author Organization [facility] Address [address] [place] [address] Care Team Providers Care Field Marketing Team Leader Name Role Phone KonstantingloriaYumiko Primary Care Provider Encounters Date Type Department Care Team Description 04/26/2024 Lab Requisition [facility] Pathology & Laboratory Medicine - [address] [address] Outr Resulting Lab, Provider from Last 3 Months Allergies No known active allergies Medications Medication Sig Dispensed Refills Start Date End Date Status allopurinoL (ZYLOPRIM) 100 mg tablet Take 1 Tablet by mouth daily. Active omeprazole (PRILOSEC) 20 mg capsule Take 1 Capsule by mouth daily. Active sertraline (ZOLOFT) 25 mg tablet Take 1 Tablet by mouth daily. Active Social History Tobacco Use Types Packs/Day Years Used Date Smoking Tobacco: Never Assessed Sex and Gender Information Value Date Recorded Sex Assigned at Not on file Gender Identity Not on file Sexual Orientation Not on file Last Filed Vital Signs Vital Sign Reading Time Taken Comments Blood Pressure 187/93 06/05/2023 1323 EDT Pulse 64 06/05/2023 1323 EDT Temperature - - Respiratory Rate 20 06/05/2023 1323 EDT Oxygen Saturation - - Inhaled Oxygen Concentration - - Weight 58.5 kg (129 lb) 06/05/2023 1323 EDT Height - - Body Mass Index - - Plan of Treatment Not on file Procedures Procedure Name Priority Date/Time Associated Diagnosis Comments PSA TOTAL, DIAGNOSTIC Routine 04/25/2024 14:30 EDT from Last 3 Months Results * (ABNORMAL) PSA TOTAL, DIAGNOSTIC (04/25/2024 14:30 EDT) PSA 9.8(H) <=6.5 ng/mL 04/26/2024 18:48 EDT [facility] Blood VENOUS BLOOD / Unknown 04/25/2024 14:30 EDT 04/26/2024 17:03 EDT Narrative [facility] - 04/26/2024 18:48 EDT NOTE: Serum PSA concentration should not be interpreted as absolute evidence for the presence or absence of malignant disease. Assayed on Siemens iKnowlIA BTRaur XPT using chemiluminescent technology.??Values obtained by using different assay methods cannot be used interchangeably. Provider Outr Resulting Lab CHEMISTRY & BLOOD GAS ORDERABLES [facility] [address] [place] [address] from Last 3 Months Juan Francisco Weiss Personal/Family Self 1945 [address] [facility] [place] [address] Juan Francisco Weiss Personal/Family Self 1945 [address] [place] [address] Juan Francisco Weiss Personal/Family Self 1945 [address] [place] [address] Care Teams Field Marketing Team Leader Relationship Specialty Start Date End Date Yumiko Chandra [address] [place] [address] PCP - General Internal Medicine - Primary Care 08/29/22
--- OUTSIDE RECORDS SUMMARY | 2024-06-07 16:02 | XMS_ITS | Patient Health Record ---
Author Organization [facility] Address [address] [place] [address] Care Team Providers Care Desktop Publishing Associate Name Role Phone Maritza Dubon Primary Care Provider UnavailCheli Pham Unavailable [phone] ALLERGIES No Known Allergies RESULTS Component Value Reference Range Notes -Urinalysis Reviewed date:09/08/2023 12:08:05 PM Interpretation: Performing Lab: Notes/Report: WBC 2+ Nitrate neg Urobilinogen neg Protein +/- pH 7.0 Occult Blood +/- Specific [place] 1.010 Ketones 2+ Bilirubin neg Color Appearance Glucose neg Urine Microscopic Only Reviewed date:09/16/2023 10:33:35 AM Interpretation:Abnormal Performing Lab: Notes/Report: Abnormal PSA Diagnostic Reviewed date:10/15/2023 01:23:34 PM Interpretation:1.05 Performing Lab: Notes/Report: 1.05 PSA Diagnostic Reviewed date:01/26/2024 01:50:11 PM Interpretation:4.6 Performing Lab: Notes/Report: 4.6 REASON FOR REFERRAL No Information MEDICATIONS Medication SIG (Take, Route, Frequency, Duration) Notes Start Date End Date Status Allopurinol 100 MG 1 tablet Orally Once a day for 30 day(s) Active Omeprazole 20 MG 1 capsule 30 minutes before morning meal Orally Once a day for 30 day(s) Active Lupron Depot (3-Month) 22.5 MG as directed Intramuscular 07/19/2023 Ac tive Myrbetriq 25 MG 1 tablet Orally Once a day for 30 days 09/08/2023 Active Flonase 50 MCG/DOSE 1 spray in each nost ril Nasally Once a day for 30 day(s) Active Sertraline HCl 100 MG 1 tablet Orally On ce a day for 30 day(s) Active IMMUNIZATIONS Vaccine Route Administration Date Status Comme nts Covid19 Unknown 01/02/2021 Administered Covid19 Unknown 01/30/2021 Administered Covid19 Unknown 09/12/2021 Administered Covid19 Unknown 02/26/2022 Administered Covid19 Unknown 12/05/2022 Administered Influenza, high dose seasonal Unknown 12/05/2022 Admini stered Pneumococcal polysaccharide PPV23 Unknown 02/01/2018 Ad ministered SOCIAL HISTORY Tobacco Use: Social History Observation [...] Active confirmed Malignant nii or of prostate (688839501) Problem Essential (primary) hypertension (I10) Active confirmed Essential hypertension (67863732) Problem Urge incontinence (N39.41) Active confirmed Urge incontinence of urine (85423601) Problem Hematuria, unspecified (R31.9) Active confirmed Hematuria (09447967) Problem Retention of urine, unspecified (R33.9) Active confirmed Retention of urine (613356517) Problem Benign prostatic hyperplasia with lower urinary tract symptoms (N40.1) Active confirmed Benign prostati c hyperplasia with outflow obstruction (734685308) Problem Elevated prostate specific antigen [PSA] (R97.20) Active confirmed Prostate specific antigen above reference range (980339904) VITAL SIGNS Blood pressure diastolic 74 mm Hg 05/03/2024 Height 66.4 in 05/03/2024 Blood pressure systolic 122 mm Hg 05/03/2024 Weight 130 lbs 05/03/2024 BMI 20.73 kg/m2 05/03/2024 PROCEDURES Procedure Date Ordered Date Performed Result Body Sit e - PVR (Post-Void Residual Volume) 09/08/2023 09/08/2023 46 ml Encounters Encounter Location Date Provider Diagnosis [facility] [address] [place] [address] 07/07/2023 Cheli Keith Malignant neoplasm o f prostate C61 and Retention of urine, unspecified R33.[address] [address] 09/08/2023 Cheli Keith Hematuria, unspecified R31.9 ; Malignant neoplasm of prostate C61 and Urge incontinence N39.[address] [address] 10/06/2023 Cheli Keith Asymptomatic microscopic hematuria R31.[address] [address] 05/03/2024 Cheli Keith Malignant neoplasm o f prostate C61 [address] [address] 09/08/2023 Cheli Keith [address] [address] 09/15/2023 Cheli Keith Urge incontinence N39.[address] [address] 10/22/2023 Cheli Keith ASSESSMENTS Encounter Date Diagnosis Assessment Notes Treatment Notes Treatment Clinical Notes 07/07/2023 Malignant neoplasm of prostate (ICD-10 - C61) 09/08/2023 Malignant neoplasm of prostate (ICD-10 - C61) 09/08/2023 Hematuria, unspecified (ICD-10 - R31.9) 09/15/2023 Urge incontinence (ICD-10 - N39.41) 10/06/2023 Asymptomatic microscopic hematuria (ICD-10 - R31.21) 05/03/2024 Malignant neoplasm of prostate (ICD-10 - C61) 09/08/2023 Urge incontinence (ICD-10 - N39.41) 07/07/2023 [...] 1 dose given pre-procedure PLAN OF TREATMENT Pending Test Test Name Order Date PSA Diagnostic 05/03/2024 Insurance Providers Payer Name Payer Address Payer Phone Subscriber Number Group Number Insured Name Patient Relationship to Insured Coverage Start Date Coverage End Date [employer] of [place] - J [address] [place] [address] [id number] Self - patient is the insured [employer] of [place] [address] [place] [id number] Self - patient [...]
--- OUTSIDE RECORDS SUMMARY | 2024-06-07 16:02 | XMS_ITS ---
Author Organization [facility] Address [address] [place] [address] Care Team Providers Care Supervisor Ordnance Truck Installation Name Role Phone Maritza Dubon Primary Care Provider UnavailCheli Pham Unavailable [phone] ALLERGIES No Known Allergies REASON FOR VISIT PSA Prior Janki 8 prostate cancer MEDICATIONS Medication SIG (Take, Route, Frequency, Duration) Notes Start Date End Date Status Lupron Depot (3-Month) 22.5 MG as directed Intramuscular 07/19/2023 Ac tive Myrbetriq 25 MG 1 tablet Orally Once a day for 30 days 09/08/2023 Active Flonase 50 MCG/DOSE 1 spray in each nost ril Nasally Once a day for 30 day(s) Active Sertraline HCl 100 MG 1 tablet Orally On ce a day for 30 day(s) Active Allopurinol [...] former smoker VITAL SIGNS Blood pressure systolic 122 mm Hg 05/03/20 24 Blood pressure diastolic 74 mm Hg 024 Height 66.4 in 05/03/2024 Weight 130 lbs 05/03/2024 BMI 20.73 kg/m2 05/03/2024 Encounters Encounter Location Date Provider Diagnosis [facility] [address] [place] [address] 05/03/2024 Cheliromi Keith Malignant neoplasm of prostate C61 ASSESSMENTS Encounter Date Diagnosis Assessment Notes Treatment Notes Treatment Clinical Notes 05/03/2024 Malignant neoplasm of prostate (ICD-10 - C61) PLAN OF TREATMENT Medication Medication Name Sig Start Date Stop Date Notes Lupron Depot (3-Month) 22.5 MG as directed Intramuscular 0 07/19/2023 Pending Test Test Name Order Date PSA Diagnostic 05/03/2024 Next Appt Details Follow Up: 6 Weeks, Reason: Prostate cancer discuss PSA results Progress Notes * KRISTIN CAO JDOB: (78 yo M)Acc No.[id number]:05/03/2024 Progress Notes Patient:??TITOBETINA Provider:??Jeanne [facility] MD :1945?Age:78 Y?Sex:Ma le Date:05/03/2024 Address:[facility] [address] [facility] Pcp:Maritza Dubon Subjective: * Chief Complaints: * ?PSA Prior Janki 8 pr ostate cancer * HPI: ?Constitutional:? The patient returns in follow-up for his [place] 8 prostate cancer unfortunately his PSA continues to rise. It is now 9.8. Previously it was 4.6. He also complains of right leg pain and numbness. His previous Lupron injections had given him relief from pain. We will restart his Lupron he understands he could have hot flashes and that he needs to exercise more and he needs to start taking vitamin D and calcium which I previously recommended. Hopefully this will help him strengthen his bones I also recommended several easy exercises he can do at home using a chair his balance is not good. * ROS:?All Other Systems:?Review of Systems (ROS)??See HPI for details. Medications, Medical History, Allergies, Social History, Surgical History, and ROS reviewed and updated with the patient today.?Right leg pain and numbness over the last month. * Medical History:?? * Surgical History:??Circumcis ion Tonsils Back Prostate Biopsy - [place] 8 03/2023 * Hospitalization/Major Diagno stic Procedure:?? * Family History:??Father: dec eased.??Mother: .?? No prostate cancer in the immediate family. * Social History:?Tobacco Use:?Tobacco Use/Smoking?Are you a??former smoker ?Miscellaneous:?Housing: owns a home. ?Living with: spouse. ?Marital status: . ?Occupation: Retired. ?Retired [employer]. * Medications:??TakingFlonase 50 MCG/DOSE Inhaler 1 spray in each nostril Nasally Once a day Sertraline HCl 100 MG Tablet 1 tablet Orally Once a day Allopurinol 100 MG Tablet 1 tablet Orally Once a day Omeprazole 20 MG Capsule Delayed Release 1 capsule 30 minutes before morning meal Orally Once a day Lupron Depot (3-Month) 22.5 MG Kit as directed Intramuscular Myrbetriq 25 MG Tablet Extended Release 24 Hour 1 tablet Orally Once a day Taking Flonase 50 MCG/DOSE Inhaler 1 spray in each nostril Nasally Once a day Taking Sertraline HCl 100 MG Tablet 1 tablet Orally Once a day Taking Allopurinol 100 MG Tablet 1 tablet Orally Once a day Taking Omeprazole 20 MG Capsule Delayed Release 1 capsule 30 minutes before morning meal Orally Once a day Taking Lupron Depot (3-Month) 22.5 MG Kit as directed Intramuscular Taking Myrbetriq 25 MG Tablet Extended Release 24 Hour 1 tablet Orally Once a day DiscontinuedCiprofloxacin HCl 500 MG Tablet 1 tablet Orally 1 dose Medication List reviewed and reconciled with the patientDiscontinued Ciprofloxacin HCl 500 MG Tablet 1 tablet Orally 1 dose Medication List reviewed and reconciled with the patient * Allergies:??N.K.D.A.no[Aller sara Verified] Objective: * Vitals:??BP: 122/74 mm Hg, W t: 130 lbs, BMI: 20.73 Index, Ht: 66.4 in, Ht-cm: 168.66 cm, Wt-k.97 kg. * Examination: ?General Examination: ?GENERAL APPEARANCE:?? pleasant, in no acute distress, frail.?SKIN:?? normal, no rashes, no suspicious lesions, warm and dry.?LUNGS:?? normal.?PSYCH:?? alert, oriented.? Assessment: * Assessment: 1.??Malignant neoplasm of pr ostate - C61 (Primary)?? The patient will restart hor frantz blockade. He will take vitamin D 2000 units a day, and calcium 1000 mg daily and try to get some daily exercise. I will recheck his PSA in 6 weeks. Hopefully it is decreasing if not he will need to have a visit with oncology at [facility]. Plan: * Treatment: * ?Immunizations:?Immunization record has been reviewed and updated. * Procedure Codes:??G8420 BMI< 30 AND >=22 [id number] DOC MEDS VERIFIED W/PT OR [id number] FLU IMMUNIZE ORDER/[id number] Pneum vax admin 60+ * Preventive Medicine:?Counseling:?Care for Older Adults?Date of last completed Functional Status Assessment:??05/03/2024 ?Date of last Medication Review:??05/03/2024 ?Date of last Advance Care Planning:??05/03/2024 ?Fall Risk and Care Plan?Screening:??No falls in the past year ?Prostate Cancer Screening?Last done PSA??04/26/2024 * Follow Up:??6 Weeks (Reason: Prostate cancer discuss PSA results) * Images: * Sign off status: Completed true * Provider:??Jeanne Keith MD Date:??2023 History and Physical Notes * Examination Category Sub-Category Detail Notes General Examination GENERAL APPEARANCE: pleasant , in no acute distress, frail LUNGS: normal SKIN: normal, no rashes, n o suspicious lesions, warm and dry PSYCH: alert, oriented
--- OUTSIDE RECORDS SUMMARY | 2024-06-07 16:02 | XMS_ITS | Encounter Summary ---
Author Organization [facility] Address [address] [place] [address] Care Team Providers Care Shadowgraph Operator Name Role Phone Yumiko Chnadra Primary Care Provider [phone] Reason for Visit * (Routine/Next Available) - Receiving Office to Obtain Authorization Specialty Diagnoses / Procedures Referred By Contac t Referred To Contact Procedures CT OUTSIDE IMAGES HEAD Imaging, External Referral ID Status Reason Start Date Expiration Date Visits Requested Visits Authorized [id number] Receiving Office to Obtain Authorization 06/05/2023 1 1 Encounter Details Date Type Department Care Team (Latest Contact Info) Description 06/04/2023 - 06/04/2023 23:59 EDT Hospital Encounter [facility] Secondary Reads [place] Discharge Disposition: Home [...] Date/Time Associated Diagnosis Comments CT OUTSIDE IMAGES HEAD Routine 06/04/2023 15:31 EDT documented in this encounter Results * CT OUTSIDE IMAGES HEAD (06/04/2023 15:31 EDT) Narrative 06/05/2023 15:31 EDT This is a non-reportable exam. External Imaging IMG OTHER IMAGING OR DERABLES documented in this encounter Visit Diagnoses Not on filedocumented in this encounter Care Teams Shadowgraph Operator Relationship Specialty Start Date End Date Yumiko Chandra [address] [place] [address] PCP - General Internal Medicine - Primary Care 08/29/22 documented as of this encounter
--- OUTSIDE RECORDS SUMMARY | 2024-06-07 16:02 | XMS_ITS | Clinical Summary ---
Author Organization [facility] Address [address] [place] [address] Care Team Providers Care Home Mission Worker Name Role Phone CorazonYumiko Primary Care Provider [phone] Allergies No known active allergies Medications Medication Sig Dispensed Refills Start Date End Date Status allopurinoL (ZYLOPRIM) 100 mg tablet Take 1 Tablet by mouth daily. Active omeprazole (PRILOSEC) 20 mg capsule Take 1 Capsule by mouth daily. Active sertraline (ZOLOFT) 25 mg tablet Take 1 Tablet by mouth daily. Active Encounters Date Type Department Care Team Description 04/26/2024 Lab Requisition [facility] Pathology & Laboratory Medicine - [address] [address] Outr Resulting Lab, Provider from Last 3 Months Social History Tobacco Use Types Packs/Day Years [...] Mass Index - - Plan of Treatment Health Maintenance Due Date Last Done Comments Hepatitis C Screen 1945 RSV Immunization ( o r 60+ Years) (1 - 1-dose 60+ series) 2006 Fall Risk Screening 2011 COVID-19 Vaccine ( season) 2023 Procedures Procedure Name Priority Date/Time Associated Diagnosis Comments PSA TOTAL, DIAGNOSTIC Routine 04/25/2024 14:30 EDT from Last 3 Months Results * (ABNORMAL) PSA TOTAL, DIAGNOSTIC (04/25/2024 14:30 EDT) PSA 9.8(H) <=6.5 ng/mL 04/26/2024 18:48 EDT [facility] Blood VENOUS BLOOD / Unknown 04/25/2024 14:30 EDT 04/26/2024 17:03 EDT Narrative [facility] - 04/26/2024 18:48 EDT NOTE: Serum PSA concentration should not be interpreted as absolute evidence for the presence or absence of malignant disease. Assayed on Siemens Landis+GyrIA KIDOZaur XPT using chemiluminescent technology.??Values obtained by using different assay methods cannot be used interchangeably. Provider Outr Resulting Lab CHEMISTRY & BLOOD GAS ORDERABLES [facility] [address] [place] [address] from Last 3 Months Care Teams Home Mission Worker Relationship Specialty Start Date End Date Yumiko Chandra [address] [place] [address] PCP - General Internal Medicine - Primary Care 08/29/22
--- OUTSIDE RECORDS SUMMARY | 2024-06-07 16:02 | XMS_ITS | Encounter Summary ---
Author Organization [facility] Address [address] [place] [address] Care Team Providers Care Manager Wireless Name Role Phone Yumiko Chandra Primary Care Provider [phone] Encounter Details Date Type Department Care Team (Late st Contact Info) Description 01/19/2024 Lab Requisition [facility] Pathology & Laboratory Medicine - [facility] [address] [place] [address] Outr Resulting Lab, Provider Social History Tobacco [...] Associated Diagnosis Comments PSA TOTAL, DIAGNOSTIC Routine 01/19/2024 11:00 EDT documented in this encounter Results * PSA TOTAL, DIAGNOSTIC (01/19/2024 11:00 EDT) PSA 4.6 <=6.5 ng/mL 01/19/2024 22:01 EDT [facility] Blood VENOUS BLOOD / Unknown 01/19/2024 11:00 EDT 01/19/2024 21:20 EDT Narrative [facility] - 01/19/2024 22:01 EDT NOTE: Serum PSA concentration should not be interpreted as absolute evidence for the presence or absence of malignant disease. Assayed on Siemens ADVIA Centaur XPT using chemiluminescent technology.??Values obtained by using different assay methods cannot be used interchangeably. Provider Outr Resulting Lab CHEMISTRY & BLOOD GAS ORDERABLES [facility] [address] [place] [phone] documented in this encounter Visit Diagnoses Not on filedocumented in this encounter Care Teams Manager Wireless Relationship Specialty Start Date End Date Yumiko Chandra [address] [place] [address] PCP - General Internal Medicine - Primary Care 08/29/22 documented as of this encounter
--- OUTSIDE RECORDS SUMMARY | 2024-06-07 16:02 | XMS_ITS | Encounter Summary ---
Author Organization [facility] Address [address] [place] [address] Care Team Providers Care Date Puller Name Role Phone Yumiko Chandra Primary Care Provider Reason for Visit * (Routine/Next Available) - Receiving Office to Obtain Authorization Specialty Diagnoses / Procedures Referred By Contac t Referred To Contact Procedures CT OUTSIDE IMAGES HEAD AND NECK Imaging, External Referral ID Status Reason Start Date Expiration Date Visits Requested Visits Authorized [id number] Receiving Office to Obtain Authorization 06/05/2023 1 1 Encounter Details Date Type Department Care Team (Latest Contact Info) Description 05/30/2023 0:05 EDT - 05/30/2023 23:59 EDT Hospital Encounter [facility] Secondary Reads [place] Discharge Disposition: Home or [...] Associated Diagnosis Comments CT OUTSIDE IMAGES HEAD AND NECK Routine 05/30/2023 15:31 EDT documented in this encounter Results * CT OUTSIDE IMAGES HEAD AND NECK (05/30/2023 15:31 EDT) Narrative 06/05/2023 15:31 EDT This is a non-reportable exam. External Imaging IMG OTHER IMAGING OR DERABLES documented in this encounter Visit Diagnoses Not on filedocumented in this encounter Care Teams Date Puller Relationship Specialty Start Date End Date Yumiko Chandra [address] [place] [address] PCP - General Internal Medicine - Primary Care 08/29/22 documented as of this encounter
--- OUTSIDE RECORDS SUMMARY | 2024-06-07 16:03 | XMS_ITS | Encounter Summary ---
Author Organization [facility] Address [address] [place] [address] Care Team Providers Care Building Carpenter Helper Name Role Phone Yumiko Chandra Primary Care Provider [phone] Reason for Visit * (Routine/Next Available) - Receiving Office to Obtain Authorization Specialty Diagnoses / Procedures Referred By Contac t Referred To Contact Procedures XR OUTSIDE IMAGES PELVIS Imaging, External Referral ID Status Reason Start Date Expiration Date Visits Requested Visits Authorized [id number] Receiving Office to Obtain Authorization 06/05/2023 1 1 Encounter Details Date Type Department Care Team (Latest Contact Info) Description 05/21/2023 - 05/21/2023 23:59 EDT Hospital Encounter [facility] Secondary Reads [place] Discharge Disposition: Home [...] Procedure Name Priority Date/Time Associated Diagnosis Comments XR OUTSIDE IMAGES PELVIS Routine 05/21/2023 15:31 EDT documented in this encounter Results * XR OUTSIDE IMAGES PELVIS (05/21/2023 15:31 EDT) Narrative 06/05/2023 15:31 EDT This is a non-reportable exam. External Imaging IMG OTHER IMAGING OR DERABLES documented in this encounter Visit Diagnoses Not on filedocumented in this encounter Care Teams Building Carpenter Helper Relationship Specialty Start Date End Date Yumiko Chandra [address] [place] [address] PCP - General Internal Medicine - Primary Care 08/29/22 documented as of this encounter
--- OUTSIDE RECORDS SUMMARY | 2024-06-07 16:03 | XMS_ITS | Encounter Summary ---
Author Organization [facility] Address [address] [place] [address] Care Team Providers Care Record Producer Name Role Phone Yumiko Chandra Primary Care Provider [phone] Encounter Details Date Type Department Care Team (Late st Contact Info) Description 02/04/2023 Lab Requisition [facility] Pathology & Laboratory Medicine - [facility] [address] [place] [address] Outr Resulting Lab, Provider Social History Tobacco [...] Associated Diagnosis Comments PSA TOTAL, DIAGNOSTIC Routine 02/03/2023 11:55 EDT documented in this encounter Results * (ABNORMAL) PSA TOTAL, DIAGNOSTIC (02/03/2023 11:55 EDT) PSA 25.5(H) <=6.5 ng/mL 02/04/2023 18:24 EDT [facility] Blood VENOUS BLOOD / Unknown 02/03/2023 11:55 EDT 02/04/2023 17:15 EDT Narrative [facility] - 02/04/2023 18:24 EDT NOTE: Serum PSA concentration should not be interpreted as absolute evidence for the presence or absence of malignant disease. Assayed on Siemens ADVIA Centaur XPT using chemiluminescent technology.??Values obtained by using different assay methods cannot be used interchangeably. Provider Outr Resulting Lab CHEMISTRY & BLOOD GAS ORDERABLES [facility] [address] [place] [address] documented in this encounter Visit Diagnoses Not on filedocumented in this encounter Care Teams Record Producer Relationship Specialty Start Date End Date Yumiko Chandra [address] [place] [address] PCP - General Internal Medicine - Primary Care 08/29/22 documented as of this encounter
--- OUTSIDE RECORDS SUMMARY | 2024-06-07 16:03 | XMS_ITS | Encounter Summary ---
Author Organization [facility] Address [address] [place] [address] Care Team Providers Care It Security Engineer Name Role Phone Unavailable Primary Care Provider Unavailabl e Encounter Details Date Type Department Care Team (Late st Contact Info) Description 08/12/2022 Orders Only [facility] Radiology - Main [place] [address] [place] [address] Neva Hyde MD [address] [place] [address] Social History Tobacco Use Types Packs/Day Years [...]
--- OUTSIDE RECORDS SUMMARY | 2024-06-07 16:03 | XMS_ITS | Encounter Summary ---
Author Organization [facility] Address [address] [place] [address] Care Team Providers Care Insulation Helper Name Role Phone Yumiko Chandra Primary Care Provider [phone] Reason for Visit * (Routine/Next Available) - Receiving Office to Obtain Authorization Specialty Diagnoses / Procedures Referred By Contac t Referred To Contact Procedures CT OUTSIDE IMAGES HEAD Imaging, External Referral ID Status Reason Start Date Expiration Date Visits Requested Visits Authorized [id number] Receiving Office to Obtain Authorization 06/05/2023 1 1 Encounter Details Date Type Department Care Team (Latest Contact Info) Description 11/27/2022 Hospital Encounter [facility] Center Secondary Reads [place] Discharge Disposition: Home [...] Diagnosis Comments CT OUTSIDE IMAGES HEAD Routine 11/27/2022 15:32 EST documented in this encounter Results * CT OUTSIDE IMAGES HEAD (11/27/2022 15:32 EST) Narrative 06/05/2023 15:33 EDT This is a non-reportable exam. External Imaging IMG OTHER IMAGING OR DERABLES documented in this encounter Visit Diagnoses Not on filedocumented in this encounter Care Teams Insulation Helper Relationship Specialty Start Date End Date Yumiko Chandra [address] [place] [address] PCP - General Internal Medicine - Primary Care 08/29/22 documented as of this encounter
--- OUTSIDE RECORDS SUMMARY | 2024-06-07 16:03 | XMS_ITS | Encounter Summary ---
Author Organization [facility] Address [address] [place] [address] Care Team Providers Care Training Development Specialist Name Role Phone Yumiko Chandra Primary Care Provider [phone] Reason for Visit * (Routine/Next Available) - Receiving Office to Obtain Authorization Specialty Diagnoses / Procedures Referred By Contac t Referred To Contact Procedures XR OUTSIDE IMAGES CHEST Imaging, External Referral ID Status Reason Start Date Expiration Date Visits Requested Visits Authorized [id number] Receiving Office to Obtain Authorization 06/05/2023 1 1 Encounter Details Date Type Department Care Team (Latest Contact Info) Description 11/27/2022 Hospital Encounter [facility] Center Secondary Reads [place] Discharge [...] Date/Time Associated Diagnosis Comments XR OUTSIDE IMAGES CHEST Routine 11/27/2022 15:33 EST documented in this encounter Results * XR OUTSIDE IMAGES CHEST (11/27/2022 15:33 EST) Narrative 06/05/2023 15:33 EDT This is a non-reportable exam. External Imaging IMG OTHER IMAGING OR DERABLES documented in this encounter Visit Diagnoses Not on filedocumented in this encounter Care Teams Training Development Specialist Relationship Specialty Start Date End Date Yumiko Chandra [address] [place] [address] PCP - General Internal Medicine - Primary Care 08/29/22 documented as of this encounter
--- OUTSIDE RECORDS SUMMARY | 2024-06-07 16:03 | XMS_ITS | Encounter Summary ---
Author Organization [facility] Address [address] [place] [address] Care Team Providers Care Preforms Laminator Name Role Phone Unavailable Primary Care Provider Unavailabl e Encounter Details Date Type Department Care Team (Late st Contact Info) Description 03/11/2000 15:26 EDT Hospital Encounter [facility] - Other [address] [place] [address] Carlyle Rojas Chi, MD [address] [facility] [place] [address] Unknown, ProviderMD Discharge Disposition: Auto Discharge Social History Tobacco Use Types Packs/Day Years Used Date Smoking Tobacco: Never Assessed Sex and Gender Information Value Date Recorded Sex Assigned at Not on file Gender Identity Not on file Sexual Orientation Not on file documented as of this encounter Discharge Disposition Disposition Code Departure Means Destination Auto Discharge documented in this encounter Plan of Treatment Not on file documented as of this encounter Procedures Procedure Name Priority Date/Time Associated Diagnosis Comments ANTI CENTROMERE AB Routine 03/11/2000 13 :15 EDT HEMAGRAM & DIFF Routine 03/11/2000 13:15 EDT ARTHRITIS 1 Routine 03/11/2000 13:15 EDT IBC Routine 03/11/2000 13:15 EDT PTT Routine 03/11/2000 13:15 EDT PROTIME Routine 03/11/2000 13:15 EDT IRON Routine 03/11/2000 13:15 EDT HAND 2 VIEWS Routine 03/11/2000 13:06 EDT ELBOW 2 VIEWS Routine 03/11/2000 13:06 EDT documented in this encounter Results * PTT (03/11/2000 13:15 EDT) PTT 24 20 - 31 secs [facility] Comment:Therapeutic Heparin range: 58-100 seconds 03/11/2000 13:1 5 EDT 03/11/2000 13:17 EDT Carlyle Rojas MD HEMATOLOGY & PF4 ORD ERABLES Performing Organization Address [facility] de Phone Number [facility] [address] [place] [address] * PROTIME (03/11/2000 13:15 EDT) Pro Time 12.2 11.7 - 13.4 secs [facility] I.N.R. 0.9 0.8 - 1.2 Ratio [facility] Comment: Moderate Intensity Coumadin INR = 2.0-3.0 Adjustments in anticoagulant therapy dose should be based upon the INR and NOT the Pro Time 03/11/2000 13:1 5 EDT 03/11/2000 13:17 EDT Carlyle Rojas MD HEMATOLOGY & PF4 ORD ERABLES Performing Organization Address [facility] Co de Phone Number [facility] [address] [place] [address] * (ABNORMAL) IRON (03/11/2000 13:15 EDT) Iron 55(L) 70 - 180 ug/dl [facility] 03/11/2000 13:1 5 EDT 03/11/2000 13:17 EDT Carlyle Rojas MD CHEMISTRY & BLOOD GA S ORDERABLES Performing Organization Address City/[facility]/ZIP Co de Phone Number [facility] [address] [place] [address] * IBC (03/11/2000 13:15 EDT) TIBC 327 250 - 450 ug/dl [facility] 03/11/2000 13:1 5 EDT 03/11/2000 13:17 EDT Carlyle Rojas MD CHEMISTRY & BLOOD GA S ORDERABLES Performing Organization Address [facility] Co de Phone Number [facility] [address] [place] [address] * ANTI CENTROMERE AB (03/11/2000 13:15 EDT) Anti Centromere Ab <40 0 - 40 dils [facility] 03/11/2000 13:1 5 EDT 03/11/2000 13:17 EDT Carlyle Rojas MD HISTORICAL LAB FOR S Q LOAD Performing Organization Address [facility] Co de Phone Number [facility] [address] [place] [address] * (ABNORMAL) HEMAGRAM & DIFF (03/11/2000 13:15 EDT) WBC 6.50 4.0 - 10.4 K/cmm [facility] RBC 4.72 4.36 - 5.78 M/cmm [facility] Hemoglobin 14.1 13.8 - 17.3 gm/dl [facility] HCT 42.4 39.5 - 50.2 % [facility] MCV 90 81 - 95 fl [facility] MCH 29.8 27.6 - 33.0 pg [facility] MCHC 33.1 32.8 - 36.4 gm/dl [facility] PLT 184 141 - 320 K/cmm [facility] RDW-CV 14.6(H) 11.8 - 14.1 % [facility] % Neutrophils 66.0 45.5 - 79.7 % [facility] % Lymphocytes 19.1 15.0 - 46.8 % [facility] % Monocytes 11.5 1.8 - 12.0 % [facility] % Eosinophils 2.5 0.6 - 6.9 % [facility] % Basophils 0.9 0.2 - 1.4 % [facility] ABS Neutrophils 4.28 2.20 - 8.85 K/cmm [facility] ABS Lymphs 1.24 1.09 - 3.30 K/cmm [facility] ABS Monocytes 0.75 0.1 - 0.8 K/cmm [facility] ABS Eosinophils 0.16 0.03 - 0.61 K/cmm [facility] ABS Basophils 0.06 0.01 - 0.11 K/cmm [facility] Type of Diff: Automated [facility] 03/11/2000 13:1 5 EDT 03/11/2000 13:17 EDT Carlyle Rojas MD HISTORICAL LAB FOR S Q LOAD Performing Organization Address [facility] Co de Phone Number [facility] [address] [place] [address] * ARTHRITIS 1 (03/11/2000 13:15 EDT) Anti Nuclear Ab <40 0 - 40 Dils [facility] Rheumatoid Factor <20 <20 IU/ml [facility] 03/11/2000 13:1 5 EDT 03/11/2000 13:17 EDT Carlyle Rojas MD IMMUNOLOGY AND SEROL OGY ORDERABLES Performing Organization Address [facility] Co de Phone Number [facility] [address] [place] [address] * ELBOW 2 VIEWS (03/11/2000 13:06 EDT) Anatomical Region Laterality Modality Other 03/11/2000 13:0 6 EDT Impressions 09/18/2009 15:26 EST IMPRESSION: Soft tissue calcifications in 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 /dkd Narrative 09/18/2009 15:26 EST SCLERODERMA/CALCINOSIS CUTIC R/O EROSIONS LEFT ELBOW: 03/11/00. COMPARISON: 09/05/98. AP, oblique and lateral views. FINDINGS: Extensive soft tissue calcifications are noted about the dorsal aspect of the elbow and proximal forearm. The calcifications also extend around the medial and lateral aspects of the elbow. The elbow joint space is unremarkable. The bone density is normal. Procedure Note Rafa Lyn MD - 09/18/2009 SCLERODERMA/CALCINOSIS CUTIC [...] 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 /arline Carlyle Rojas MD IMG DIAGNOSTIC IMAGI NG ORDERABLES * HAND 2 VIEWS (03/11/2000 13:06 EDT) Anatomical Region Laterality Modality Other 03/11/2000 13:0 6 EDT Impressions 09/18/2009 15:26 EST IMPRESSION: 1. Soft tissue calcification with distal fingertip soft tissue wasting and right thumb distal phalanx tuftal erosion. 2. Findings consistent with scleroderma. 3. The left index finger distal phalanx partial amputation may be traumatic in etiology and clinical correlation recommended. D-03/13/00 T-03/13/00/lg Narrative 09/18/2009 15:26 EST SCLERODERMA/CALCINOSIS CUTIC R/O EROSIONS BILATERAL HANDS 03/11/00 [...] bone density is grossly within normal limits. Procedure Note Rafa Lyn MD - 09/18/2009 SCLERODERMA/CALCINOSIS CUTIC [...] traumatic in etiology and clinical correlation recommended. D-03/13/00 T-03/13/00/tin Carlyle Rojas MD IMG DIAGNOSTIC IMAGI NG ORDERABLES documented in this encounter Visit Diagnoses Not on filedocumented in this encounter
--- OUTSIDE RECORDS SUMMARY | 2024-06-07 16:03 | XMS_ITS | Encounter Summary ---
Author Organization [facility] Address [address] [place] [address] Care Team Providers Care Furnace Checker Name Role Phone Yumiko Chandra Primary Care Provider [phone] Reason for Visit * (Routine/Next Available) - Receiving Office to Obtain Authorization Specialty Diagnoses / Procedures Referred By Contac t Referred To Contact Procedures US OUTSIDE IMAGES OTHER Imaging, External Referral ID Status Reason Start Date Expiration Date Visits Requested Visits Authorized [id number] Receiving Office to Obtain Authorization 06/05/2023 1 1 Encounter Details Date Type Department Care Team (Latest Contact Info) Description 04/08/2023 - 04/08/2023 23:59 EDT Hospital Encounter [facility] Secondary Reads [place] Discharge Disposition: Home [...] Procedure Name Priority Date/Time Associated Diagnosis Comments US OUTSIDE IMAGES OTHER Routine 04/08/2023 15:32 EDT documented in this encounter Results * US OUTSIDE IMAGES OTHER (04/08/2023 15:32 EDT) Narrative 06/05/2023 15:32 EDT This is a non-reportable exam. External Imaging IMG OTHER IMAGING OR DERABLES documented in this encounter Visit Diagnoses Not on filedocumented in this encounter Care Teams Furnace Checker Relationship Specialty Start Date End Date Yumiko Chandra [address] [place] [address] PCP - General Internal Medicine - Primary Care 08/29/22 documented as of this encounter
--- OUTSIDE RECORDS SUMMARY | 2024-06-07 16:03 | XMS_ITS | Encounter Summary ---
Author Organization [facility] Address [address] [place] [address] Care Team Providers Care Cartridge Gauger Name Role Phone Yumiko Chandra Primary Care Provider [phone] Reason for Referral * Radiology Services (Routine/Next Available) - Receiving Office to Obtain Authorization Specialty Diagnoses / Procedures Referred By Contac t Referred To Contact Radiology Diagnoses Thoracic aortic ectasia (HCC-CMS) Procedures MR ANGIO CHEST WO CONTRAST MR ANGIO CHEST W WO CONTRAST Yumiko Chandra [address] [place] [address] [facility] Referral ID Status Reason Start Date Expiration Date Visits Requested Visits Authorized [id number] Receiving Office to Obtain Authorization 08/12/2022 1 1 Reason for Visit * Radiology Services (Routine/Next Available) - Receiving Office to Obtain Authorization Specialty Diagnoses / Procedures Referred By Contac t Referred To Contact Radiology Diagnoses Thoracic aortic ectasia (HCC-CMS) Procedures MR ANGIO CHEST WO CONTRAST MR ANGIO CHEST W WO CONTRAST Yumiko Chandra [address] [place] [address] [facility] Referral ID Status Reason Start Date Expiration Date Visits Requested Visits Authorized [id number] Receiving Office to Obtain Authorization 08/12/2022 1 1 Encounter Details Date Type Department Care Team (Latest Contact Info) Description 10/07/2022 8:30 EST - 10/07/2022 23:59 EST Hospital [facility] Center Radiology MRI - [address] [address] Thoracic aortic ectasia (HCC-CMS) Discharge Disposition: Home [...] Comments MR ANGIO CHEST WO CONTRAST Routine 10/07/2022 10:17 EST Thoracic aortic ectasia (HCC-CMS) documented in this encounter Results * MR ANGIO CHEST WO CONTRAST (10/07/2022 10:17 EST) Anatomical Region Laterality Modality Chest Magnetic Resonan ce 10/07/2022 10:2 6 EST Impressions 10/07/2022 10:26 EST Findings/ Impression: The ascending aorta is dilated to 3.7 cm. The sinotubular junction is preserved. Diameter at the sinuses is 3.7 cm. There is no evidence of dissection or other acute abnormality. The central pulmonary arteries and cardiac chambers are normal size and left ventricular wall thickness is normal. No evidence of pericardial disease. All four cardiac valves appear to function normally. The coronary arteries arise normally. There is a large stone in the gallbladder. Narrative 10/07/2022 10:26 EST MR ANGIO CHEST WO CONTRAST ??10/07/2022 9:30 AM Clinical History/Comments: Mild dilation of aorta seen on echocardiogram Comparison: None Technique: Multiplanar steady state free procession cine images through the aorta Procedure Note Andrew Husain MD - 10/07/2022 MR ANGIO CHEST WO CONTRAST 10/07/2022 9:30 AM Clinical History/Comments: Mild dilation of aorta seen on echocardiogram Comparison: None Technique: Multiplanar steady state free procession cine images throughthe aorta IMPRESSION Findings/ Impression: The ascending aorta is dilated to 3.7 cm. The sinotubular junction ispreserved. Diameter at the sinuses is 3.7 cm. There is no evidence ofdissection or other acute abnormality. The central pulmonary arteries and cardiac chambers are normal size andleft ventricular wall thickness is normal. No evidence of pericardialdisease. All four cardiac valves appear to function normally. The coronaryarteries arise normally. There is a large stone in the gallbladder. Yumiko Chandra [facility] ORDERABLES documented in this encounter Visit Diagnoses Diagnosis Thoracic aortic ectasia (HCC-CMS) Thoracic aortic ectasia documented in this encounter Care Teams Cartridge Gauger Relationship Specialty Start Date End Date Yumiko Chandra [address] [facility] [place] [id number] PCP - General Internal Medicine - Primary Care 08/29/22 documented as of this encounter
--- OUTSIDE RECORDS SUMMARY | 2024-06-07 16:03 | XMS_ITS | Encounter Summary ---
Author Organization [facility] Address [address] [place] [address] Care Team Providers Care Accredited Legal Secretary Name Role Phone Yumiko Chandra Primary Care Provider [phone] Reason for Visit * (Routine/Next Available) - Receiving Office to Obtain Authorization Specialty Diagnoses / Procedures Referred By Contac t Referred To Contact Procedures NM OUTSIDE IMAGES Imaging, External Referral ID Status Reason Start Date Expiration Date Visits Requested Visits Authorized [id number] Receiving Office to Obtain Authorization 06/05/2023 1 1 Encounter Details Date Type Department Care Team (Latest Contact Info) Description 05/07/2023 - 05/07/2023 23:[address] [facility] Secondary Reads [place] Discharge Disposition: Home [...] Procedure Name Priority Date/Time Associated Diagnosis Comments NM OUTSIDE IMAGES Routine 05/07/2023 15: 31 EDT documented in this encounter Results * NM OUTSIDE IMAGES (05/07/2023 15:31 EDT) Narrative 06/05/2023 15:32 EDT This is a non-reportable exam. External Imaging IMG OTHER IMAGING OR DERABLES documented in this encounter Visit Diagnoses Not on filedocumented in this encounter Care Teams Accredited Legal Secretary Relationship Specialty Start Date End Date Yumiko Chandra [address] [place] [address] PCP - General Internal Medicine - Primary Care 08/29/22 documented as of this encounter
--- OUTSIDE RECORDS SUMMARY | 2024-06-07 16:03 | XMS_ITS | Encounter Summary ---
Author Organization [facility] Address [address] [place] [address] Care Team Providers Care Station Installer And Repairer Name Role Phone Yumiko Chandra Primary Care Provider [phone] Encounter Details Date Type Department Care Team (Late st Contact Info) Description 10/25/2020 Lab Requisition [facility] Pathology & Laboratory Medicine - [facility] [address] [place] [address] Outr Resulting Lab, Provider Social History Tobacco [...] Associated Diagnosis Comments PSA TOTAL, DIAGNOSTIC Routine 10/24/2020 12:27 EST documented in this encounter Results * (ABNORMAL) PSA TOTAL, DIAGNOSTIC (10/24/2020 12:27 EST) PSA 6.7(H) 0.0 - 6.5 ng/mL 10/25/2020 20:33 EST [facility] Blood VENOUS BLOOD / Unknown 10/24/2020 12:27 EST 10/25/2020 17:11 EST Narrative [facility] - 10/25/2020 20:33 EST NOTE: Serum PSA concentration should not be interpreted as absolute evidence for the presence or absence of malignant disease. Assayed on Siemens ADVIA Centaur XPT using chemiluminescent technology.??Values obtained by using different assay methods cannot be used interchangeably. Provider Outr Resulting Lab CHEMISTRY & BLOOD GAS ORDERABLES [facility] [address] [place] [address] documented in this encounter Visit Diagnoses Not on filedocumented in this encounter Care Teams Station Installer And Repairer Relationship Specialty Start Date End Date Yumiko Chandra [address] [place], [place] [address] PCP - General Internal Medicine - Primary Care 08/29/22 documented as of this encounter
--- OUTSIDE RECORDS SUMMARY | 2024-06-07 16:03 | XMS_ITS | Encounter Summary ---
Author Organization [facility] Address [address] [place] [address] Care Team Providers Care Alumni Relations Coordinator Name Role Phone Unavailable Primary Care Provider Unavailabl e Encounter Details Date Type Department Care Team (Late st Contact Info) Description 08/12/2022 Orders Only [facility] Radiology - Main [place] [address] [place] [address] Neva Hyde MD [address] [place] [address] Social History Tobacco Use Types Packs/Day Years [...]
[2024-06-08 18:17] LABS: PSA, Screening 4.9 ng/mL (<=6.5)
== END 2024-06-07 15:50 | disposition home or self-care (01) ==
LOC: NCHCN 15:49
PROVIDERS: PCP Internal Medicine; Visit Provider Internal Medicine
DX: Z12.5 Encounter for screening for malignant neoplasm of prostate (principal)
CPT/HCPCS: 84153

== ENCOUNTER 2024-09-15 14:46 | Outpatient (REF) | payer MEDICARE, SELFPAY ==
--- OUTSIDE RECORDS SUMMARY | 2024-09-15 14:50 | XMS_ITS ---
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
--- OUTSIDE RECORDS SUMMARY | 2024-09-15 14:50 | XMS_ITS | Encounter Summary ---
Author Organization [facility] Address [facility] [place] [address] Care Team Providers Care Maintenance Service Supervisor Name Role Phone Justen Puckett DMD Primary Care Provider [phone] Reason for Visit * Consultation (Routine) - Closed Specialty Diagnoses / Procedures Referred By Ronny saldaña Referred To Contact Rheumatology Diagnoses CRST syndrome Dysphagia, unspecified type Yumiko Chandra MD [address] [place] [address] [facility] [address] [place] [id number] Referral ID Status Reason Start Date Expiration Date V isits Requested Visits Authorized [id number] Closed Consult, Test & Treat PCP Updated and/or Approved 07/25/2023 07/24/2024 6 6 Encounter Details Date Type Department Care Team (Late st Contact Info) Description 08/11/2023 10:00 AM EDT TH Visit (TeleHealth) [place] [address] Vel Arguello MD [facility] [place] [address] Scleroderma Social History Tobacco Use [...] weekly by [facility] ([place] [facility]) and his blood pressures by his [...] mouth daily. fluticasone propionate (Flonase) 50 mcg/actuation Manly, Suspension SHAKE LIQUID AND USE 1 SPRAY [...] sclerosis documented in this encounter Care Teams Maintenance Service Supervisor Relationship Specialty Start Date End Date Justen Puckett DMD [address] [place] [address] PCP - General Dental Enterostomal Nurse 07/25/23 documented as of this encounter
--- OUTSIDE RECORDS SUMMARY | 2024-09-15 14:50 | XMS_ITS ---
Author Organization Unknown Address [address] [place] [phone] Phone Care Team Providers Care Diversity Specialist Name Role Phone RERE FERRARO Attending Unavailable HOA Reyes Consulting Unavailable WILLIE Melendez Primary Unavailable Social History Type Status Start Date End Date Code Code Syst em Smoking History Former smoker 0754203 SNOMED CT Sex Male Assessment You had [...] Status Code Code System CREST SYNDROME active 52700009 SNOME D-CT HTN active 91973002 SNOMED-CT DEPRESSION active 52813745 SNOMED-CT GOUT active 92549366 SNOMED-CT Allergies and Adverse Reactions Allergy Substance Reaction Severity Start Date Concern Status Co de Code System No Known Drug Allergies Active 121942677 SNOMED-CT Plan of Treatment CT HEAD W/O CONTRAST 06/25/2023 X-RAY 05/26/2023 NM BONE SCAN WHOLE BODY 05/07/2023 US GUIDED NEEDLE BIOPSY 04/08/2023 Encounters Encounter Diagnosis Start Date Code Code Sys tem Other forms of angina pectoris 05/23/2022 SNOMED-CT Personal Care Team Section Performer Name Performer Role Active Date Inactive Da te
--- OUTSIDE RECORDS SUMMARY | 2024-09-15 14:50 | XMS_ITS | Clinical Summary ---
Author Organization [facility] [place] [address] Care Team Providers Care Hollow Tile Partition Erector Name Role Phone Justen Puckett DMD Primary Care Provider [phone] Medications Medication Sig Dispensed Refills Start Date [...] 06/10/2023 Active fluticasone propionate (Flonase) 50 mcg/actuation [place], Suspension SHAKE LIQUID AND USE 1 SPRAY [...] Last Done Comments Hepatitis C Screening 1964 Tetanus/Diphtheria/Pertussis Vaccines (1 - Tdap) 07/23 Zoster vaccine (1 of 2) 1996 Advance Directive 2001 Pneumoccocal Vaccine: 65+ (1 of 1 - PCV) 2011 Covid-19 Vaccine (2022-24 season) 2024 Influenza (Flu) vaccine (1 o f 1 - Influenza standard series) 07/10/2024 Care Teams Hollow Tile Partition Erector Relationship Specialty Start Date End Date Justen Puckett DMD [address] [place], [place] [address] PCP - General Dental Video Surveillance Technician 07/25/23
--- OUTSIDE RECORDS SUMMARY | 2024-09-15 14:50 | XMS_ITS | Encounter Summary ---
[place] [address] Care Team Providers Care College Archivist Name Role Phone Justen Puckett DMD Primary Care Provider [phone] Reason for Referral * Consultation (Routine) - Closed Specialty Diagnoses / Procedures Referred By Ronny t Referred To Contact Rheumatology Diagnoses CRST syndrome Dysphagia, unspecified type Yumiko Chandra MD [address] [place] [id number] [facility] [address] [place] [phone] Referral ID Status Reason Start Date Expiration Date V isits Requested Visits Authorized [id number] Closed Consult, Test & Treat PCP Updated and/or Approved 07/25/2023 07/24/2024 6 6 Encounter Details Date Type Department Care Team (Latest Contact Info) Description 07/25/2023 Transcribe Orders eDH Incoming Referrals [phone] Justen Puckett DMD [address] [facility] [address] [place], [place] [phone] CRST syndrome; Dysphagia, unspecified type Social History [...] type documented in this encounter Care Teams College Archivist Relationship Specialty Start Date End Date Italo LIZETH Campuzano [address] [place] [address] PCP - General Dental Studio Data Analyst 07/25/23 documented as of this encounter
--- OUTSIDE RECORDS SUMMARY | 2024-09-15 14:51 | XMS_ITS ---
Author Organization Unknown Address [address] [place] [phone] Phone Care Team Providers Care Security Assurance Analyst Name Role Phone OSIRIS Dhillon Attending Unavailable HOA Reyes Primary Unavailable Results US PROSTATE BIOPSY* - Comple kelton: 04/08/2023 13:33 LOINC: [place], [place] [address] PACS BONDING MACHINE OPERATOR REPORT Patient Name: ANN CAO MRN: Sex: : Age: [id number] M 1945 77 Account: Accession: Admit: StayType: [id number] 04/08/2023 O/P Ordered: Order ID: Submitted: Ordering Provider: 04/08/2023 12:55 [id number] ALKA MEDINA Completed: Technologist: Resulted: 04/08/2023 13:33 [facility] 04/08/2023 13:41 Study Description: US PROSTATE BIOPSY Study Reason: Biopsy TECHNIQUE: Transrectal ultrasound guidance was provided for prostate biopsy performed by the urologist. COMPARISON: No exams were available for comparison FINDINGS: Images supplied revealed the targeted prostate gland IMPRESSION: As above. Report Digitally Signed by Shabbir Shelley on 04/08/2023 01:41 PM EDT 04/08/[email or web address].to [place] via fax Social History Type Status Start Date End Date Code Code Syst em Smoking History Former smoker 1964393 SNOMED CT Sex Male Assessment You had [...] Status Code Code System CREST SYNDROME active 61887104 SNOME D-CT HTN active 98034098 SNOMED-CT DEPRESSION active 32898642 SNOMED-CT GOUT active 27634038 SNOMED-CT Allergies and Adverse Reactions Allergy Substance Reaction Severity Start Date Concern Status Co de Code System No Known Drug Allergies Active 547664714 SNOMED-CT Plan of Treatment CT HEAD W/O CONTRAST 06/25/2023 X-RAY 05/26/2023 NM BONE SCAN WHOLE BODY 05/07/2023 US GUIDED NEEDLE BIOPSY 04/08/2023 Encounters Encounter Diagnosis Start Date Code Code Sys tem Malignant neoplasm of prostate 04/08/2023 SNOMED-CT Personal Care Team Section Performer Name Performer Role Active Date Inactive Da te
--- OUTSIDE RECORDS SUMMARY | 2024-09-15 14:51 | XMS_ITS ---
Author Organization Unknown Address [address] [place] [phone] Phone Care Team Providers Care Access Clinician Name Role Phone MARY MCHUGH Registered Nurse Unavailable LESIA Barker Attending Unavailable HOA Reyes Primary Unavailable UNLISTED PROVIDER - REQUESTED Xhandoff Un available Results CT HEAD WO CONTRAST - Comple kelton: 11/27/2022 13:06 LOINC: [facility] [place], [place] [address] PACS MEMBER CERTIFICATION MANAGER REPORT Patient Name: ANN CAO MRN: Sex: : Age: [id number] M 1945 77 Account: Accession: Admit: StayType: [id number] 11/27/2022 E/R Ordered: Order ID: Submitted: Ordering Provider: 11/27/2022 12:47 [id number] KIKE BECKMAN Completed: Technologist: Resulted: 11/27/2022 13:06 SLG 11/27/2022 13:17 Study Description: CT HEAD WO CONTRAST Study Reason: trauma Technique: Imaging Protocol: Axial computed tomography images with coronal and sagittal reformatted images were created and reviewed. Comparison: None. FINDINGS: Ventricles and Extra axial spaces: Normal in size and morphology for the patient's age. Hemorrhage: None. Cerebral parenchyma: Normal. [place] of [place]: Unremarkable. Midline shift: None. Brainstem/Cerebellum: [...] 3V RT* - Completed: 11/27/2022 15:07 LOINC: [facility] [place], [place] [address] PACS MEMBER CERTIFICATION MANAGER REPORT Patient Name: ANN CAO MRN: Sex: : Age: [id number] M 1945 Account: Accession: Admit: StayType: [id number] 11/27/2022 E/R Ordered: Order ID: Submitted: Ordering Provider: 11/27/2022 12:47 [id number] KIKE BECKMAN Completed: Technologist: Resulted: 11/27/2022 12:47 [...] Code Syst em Smoking History Former smoker 3935382 SNOMED CT Sex Male Vital Signs Vital Sign Value Unit [place] Value [place] Unit Date/Time Recent/Initial? Code Code System Body Mass Index 20.36 kg/m2 11/27/2022 12:06 Initial 49474 -5 LOINC Systolic Blood Pressure 186 mm[Hg] [...] O2 Saturation 97 % 2022 15:39 Initial 15467 -5 LOINC Pulse 72.0 /min 11/27/2022 15:39 Most Recent 8867- 4 LOINC Pulse 72.0 /min 11/27/2022 12:06 Initial 8867- 4 LOINC Respiration 18 /min 11/27/19 15:39 Initial 9279- 1 LOINC Temperature 37.2 Irma 99.0 F 11/27/19 12:06 Initial 8310- 5 LOINC Weight 58.97 kg 130.00 lbs 11/27/2022 12:06 Initial 30788 -7 LOINC Assessment You had the following problems:CREST SYNDROMEHTNDEPRESSIONGOUT Hospital Discharge Instructions Should you have any questions prior to discharge, please contact a member of your healthcare team. If you have left the hospital and have any questions, please contact your primary care physician. Reason For Referral No Data Found Problems Problem Start Date Resolved Date Status Code Code System CREST SYNDROME active 89213731 SNOME D-CT HTN active 13253150 SNOMED-CT DEPRESSION active 50846797 SNOMED-CT GOUT active 56042018 SNOMED-CT Allergies and Adverse Reactions Allergy Substance Reaction Severity Start Date Concern Status Co de Code System No Known Drug Allergies Active 271658419 SNOMED-CT Plan of Treatment CT HEAD W/O [...]
--- OUTSIDE RECORDS SUMMARY | 2024-09-15 14:51 | XMS_ITS ---
Author Organization Unknown Address [address] [place] [address] [phone] Phone Care Team Providers Care Wire Rope Sales Representative Name Role Phone OSIRIS Dhillon Attending Unavailable HOA Reyes Primary Unavailable Results NM BONE SCAN WHOLE BODY - Co mpleted: 05/07/2023 13:26 LOINC: [facility] [place], [place] [address] PACS PUBLIC HEALTH SPECIALIST REPORT Patient Name: ANN CAO MRN: Sex: : Age: [id number] M 1945 77 Account: Accession: Admit: StayType: [id number] 05/07/2023 O/P Ordered: Order ID: Submitted: Ordering Provider: 05/07/2023 09:08 [id number] KT ALKA NEWELL Completed: Technologist: Resulted: 05/07/2023 [...] Code Syst em Smoking History Former smoker 5036448 SNOMED CT Sex Male Assessment You had [...] Status Code Code System CREST SYNDROME active 40841880 SNOME D-CT HTN active 33999121 SNOMED-CT DEPRESSION active 43901815 SNOMED-CT GOUT active 73876016 SNOMED-CT Allergies and Adverse Reactions Allergy Substance Reaction Severity Start Date Concern Status Co de Code System No Known Drug Allergies Active 870238361 SNOMED-CT Plan of Treatment CT HEAD W/O CONTRAST 06/25/2023 X-RAY 05/26/2023 NM BONE SCAN WHOLE BODY 05/07/2023 US GUIDED NEEDLE BIOPSY 04/08/2023 Encounters Encounter Diagnosis Start Date Code Code Sys tem Primary malignant neoplasm of prostate 05/07/2023 93 116279 SNOMED-CT Personal Care Team Section Performer Name Performer Role Active Date Inactive Da te
--- OUTSIDE RECORDS SUMMARY | 2024-09-15 14:52 | XMS_ITS ---
Author Organization Unknown Address [address] [place] [phone] Phone Care Team Providers Care Insurance Representative Name Role Phone OSIRIS Dhillon Attending Unavailable HOA Reyes Primary Unavailable Results XR PELVIS 1V OR 2V - Complet ed: 05/26/2023 14:28 LOINC: [facility] [place], [place] [address] PACS AMBULANCE ASSISTANT REPORT Patient Name: ANN CAO MRN: Sex: : Age: [id number] M 1945 77 Account: Accession: Admit: StayType: [id number] 05/26/2023 O/P Ordered: Order ID: Submitted: Ordering Provider: 05/26/2023 14:17 [id number] KT LAKA NEWELL Completed: Technologist: Resulted: 05/26/2023 14:28 KMD [...] Mariana Childs on 05/26/2023 02:38 PM EDT 05/26/23.1231.[facility].to [place] via fax Social History Type Status Start Date End Date Code Code Syst em Smoking History Former smoker 6134998 SNOMED CT Sex Male Assessment You had [...] Status Code Code System CREST SYNDROME active 45362193 SNOME D-CT HTN active 63512024 SNOMED-CT DEPRESSION active 62720719 SNOMED-CT GOUT active 92536406 SNOMED-CT Allergies and Adverse Reactions Allergy Substance Reaction Severity Start Date Concern Status Co de Code System No Known Drug Allergies Active 724001627 SNOMED-CT Plan of Treatment CT HEAD W/O [...]
--- OUTSIDE RECORDS SUMMARY | 2024-09-15 14:52 | XMS_ITS ---
Author Organization Unknown Address [address] [place], [place] [phone] Phone Care Team Providers Care Mail Distribution Clerk Name Role Phone ANN IBRAHIM Registered Nurse Unavailable JEROMY Plummer Attending Unavailable HOA Reyes Primary Unavailable UNLISTED PROVIDER - REQUESTED Xhandoff Un available Results COMPREHENSIVE METABOLIC PANE L (CMP) - Collect Date/Time: 05/30/2023 13:36 ID: [id number] [address] [place], [place], [address] LOINC: 29179-9 Test Value Unit Reference Range Code Code [...] H=34 2028-9 LOINC ANION GAP 3.2 mmol/L 90339-7 LOINC CALCIUM SERUM 8.9 mg/dL L=8.2 H=10.2 52529-8 LOINC BILIRUBIN TOTAL 0.4 mg/dL L=0.0 H=1.3 1975-2 LOINC ALK. PHOS. 118 U/L L=46 H=116 6768-6 LOINC H SGOT (AST) 25 U/L L=15 H=37 1920-8 LOINC SGPT (ALT) 16 U/L L=12 H=78 1742-6 LOINC TOTAL PROTEIN 7.4 gm/dL L=6.0 H=8.0 2885-2 LOINC ALBUMIN 3.6 gm/dL L=3.4 H=5.0 1751-7 LOINC AGE 77 years eGFR (non-Afr.Amer.) 60 mL/min 34753-5 LOINC eGFR (Afr-Kenyan) 73 mL/min 30027-7 LOINC CBC W/ DIFFERENTIAL* - Colle ct Date/Time: 05/30/2023 13:36 ID: [id number] [address] [place], [place], [address] LOINC: 16516-9 Test Value Unit Reference Range Code Code System Flag WBC 4.07 th/cmm L=5.00 H=10.00 6690-2 LOINC L NEUT % 66.8 % L=40.0 H=80.0 LYMPH % 17.9 % L=10.0 H=50.0 MONO % 7.9 % L=2.0 H=12.0 72894-0 LOINC EOS % 4.9 % L=0.0 H=8.0 BASO % 1.5 % L=0.0 H=3.0 IG % 1.0 % L=0.0 H=1.1 2514-8 LOINC NRBC % 0.0 % L=0.0 H=0.0 26718-3 LOINC NEUT abs count 2.7 th/cmm L=1.6 H=8.4 751-8 LOINC LYMPH abs count 0.7 th/cmm L=1.5 H=4.0 731-0 LOINC L MONO abs count 0.3 th/cmm L=0.2 H=1.0 742-7 LOINC EOS abs count 0.2 th/cmm L=0.0 H=0.5 711-2 LOINC BASO abs count 0.1 th/cmm L=0.0 H=0.2 704-7 LOINC IG abs count 0.0 th/cmm L=0.0 H=0.1 17572-0 LOINC NRBC abs count 0.0 mil/cmm L=0.0 H=0.0 01196-4 LOINC RBC 4.65 mil/cmm L=4.30 H=6.20 789-8 [...] CONTRAST - Com pleted: 05/30/2023 15:11 LOINC: RADIOLOGY [place], [place] [address] PACS PLASTIC SURGERY TECHNICIAN REPORT Patient Name: ANN CAO MRN: Sex: : Age: [id number] M 1945 77 Account: Accession: Admit: StayType: [id number] 05/30/2023 E/R Ordered: Order ID: Submitted: Ordering Provider: 05/30/2023 14:33 [id number] VARGAS ARCINIEGA Completed: Technologist: Resulted: 05/30/2023 15:11 [...] ANGELIQUE JURADO* - Completed: 05/30/2023 15:11 LOINC: RADIOLOGY [place], [place] [address] PACS PLASTIC SURGERY TECHNICIAN REPORT Patient Name: ANN CAO MRN: Sex: : Age: [id number] M 1945 77 Account: Accession: Admit: StayType: [id number] 05/30/2023 E/R Ordered: Order ID: Submitted: Ordering Provider: 05/30/2023 14:16 [id number] VARGAS ARCINIEGA Completed: Technologist: Resulted: 05/30/2023 15:11 [...] Code Syst em Smoking History Former smoker 2837853 SNOMED CT Sex Male Vital Signs Vital Sign Value Unit [place] Value [place] Unit Date/Time Recent/Initial? Code Code System Systolic Blood Pressure 181 mm[Hg] 05/30/2023 17:17 Most Recent 8480-6 LOINC Diastolic Blood Pressure 98 mm[Hg] 05/30/2023 17:17 Most Recent 8462-4 LOINC Systolic Blood Pressure 202 mm[Hg] 05/30/2023 14:24 Initial 8480-6 LOINC Diastolic Blood Pressure 129 mm[Hg] 05/30/2023 14:24 Initial 8462-4 LOINC O2 Saturation 98 % 2022 17:17 Most Recent 90300- 5 LOINC O2 Saturation 98 % 2022 14:24 Initial 63972- 5 LOINC Pulse 87.0 /min 05/30/2023 17:17 [...] Status Code Code System CREST SYNDROME active 64130110 SNOME D-CT HTN active 90335038 SNOMED-CT DEPRESSION active 62667230 SNOMED-CT GOUT active 33669401 SNOMED-CT Allergies and Adverse Reactions Allergy Substance Reaction Severity Start Date Concern Status Co de Code System No Known Drug Allergies Active 371645343 SNOMED-CT Plan of Treatment CT HEAD W/O CONTRAST 06/25/2023 X-RAY 05/26/2023 NM BONE SCAN WHOLE BODY 05/07/2023 US GUIDED NEEDLE BIOPSY 04/08/2023 Encounters Encounter Diagnosis Start Date Code Code Sys tem Contusion of head 05/30/2023 840414445 SNOMED-CT Personal Care Team Section Performer Name Performer Role Active Date Inactive Da te
--- OUTSIDE RECORDS SUMMARY | 2024-09-15 14:52 | XMS_ITS ---
Author Organization Unknown Address [address] [place] [phone] Phone Care Team Providers Care Supply Chain Assistant Name Role Phone GARRET Aguila Attending Unavailable HOA Reyes Primary Unavailable Results CT HEAD WO CONTRAST - Comple kelton: 06/25/2023 14:47 LOINC: [facility] [place], [place] [address] PACS RUG DRYING MACHINE OPERATOR REPORT Patient Name: ANN CAO MRN: Sex: : Age: [id number] M 1945 77 Account: Accession: Admit: StayType: [id number] 06/25/2023 O/P Ordered: Order ID: Submitted: Ordering Provider: 06/25/2023 14:05 [id number] KT VLADIMIR COMBS Completed: Technologist: Resulted: 06/25/2023 [...] Code Syst em Smoking History Former smoker 8740706 SNOMED CT Sex Male Assessment You had [...] Status Code Code System CREST SYNDROME active 41232336 SNOME D-CT HTN active 51809799 SNOMED-CT DEPRESSION active 11055020 SNOMED-CT GOUT active 27605631 SNOMED-CT Allergies and Adverse Reactions Allergy Substance Reaction Severity Start Date Concern Status Co de Code System No Known Drug Allergies Active 012208837 SNOMED-CT Plan of Treatment CT HEAD W/O CONTRAST 06/25/2023 X-RAY 05/26/2023 NM BONE SCAN WHOLE BODY 05/07/2023 US GUIDED NEEDLE BIOPSY 04/08/2023 Encounters Encounter Diagnosis Start Date Code Code Sys tem Dizziness and giddiness 06/25/2023 SNOM ED-CT Personal Care Team Section Performer Name Performer Role Active Date Inactive Da te
--- OUTSIDE RECORDS SUMMARY | 2024-09-15 14:52 | XMS_ITS ---
Author Organization Unknown Address [address] [place] [phone] Phone Care Team Providers Care Steam Crane Operator Name Role Phone GARRET Aguila Attending Unavailable HOA Reyes Primary Unavailable Results CT HEAD WO CONTRAST - Comple kelton: 06/04/2023 15:37 LOINC: [facility] [place], [place] [address] PACS PROMOTION OFFICER REPORT Patient Name: ANN CAO MRN: Sex: : Age: [id number] M 1945 77 Account: Accession: Admit: StayType: [id number] 06/04/2023 O/P Ordered: Order ID: Submitted: Ordering Provider: 06/04/2023 15:08 [id number] VLADIMIR MARTINEZ Completed: Technologist: Resulted: 06/04/2023 15:37 [...] most consistent with small vessel ischemic disease. [place] of [place]: Unremarkable. Midline shift: None. Brainstem/Cerebellum: [...] Code Syst em Smoking History Former smoker 4105468 SNOMED CT Sex Male Assessment You had [...] Status Code Code System CREST SYNDROME active 78327854 SNOME D-CT HTN active 80165158 SNOMED-CT DEPRESSION active 10898816 SNOMED-CT GOUT active 21519984 SNOMED-CT Allergies and Adverse Reactions Allergy Substance Reaction Severity Start Date Concern Status Co de Code System No Known Drug Allergies Active 117885203 SNOMED-CT Plan of Treatment CT HEAD W/O CONTRAST 06/25/2023 X-RAY 05/26/2023 NM BONE SCAN WHOLE BODY 05/07/2023 US GUIDED NEEDLE BIOPSY 04/08/2023 Encounters Encounter Diagnosis Start Date Code Code Sys tem Dizziness 06/04/2023 470485719 SNOMED-CT Personal Care Team Section Performer Name Performer Role Active Date Inactive Da te
--- OUTSIDE RECORDS SUMMARY | 2024-09-15 14:53 | XMS_ITS ---
Author Organization Unknown Address [address] [place] [phone] Phone Care Team Providers Care Geothermal Field Technician Name Role Phone OSIRIS Dhillon Attending Unavailable HOA Reyes Primary Unavailable Results PSA DIAG PROSTATE SPECIFIC A NTIGEN * - Collect Date/Time: 10/06/2023 11:35 [facility] ID: [id number] [address] [place] [address] LOINC: 2857-1 Test Value Unit Reference Range Code Code System Flag PSA 1.05 ng/mL L=0.00 H=6.50 2857-1 LOINC Social History Type Status Start Date End Date Code Code Syst em Smoking History Former smoker 2612921 SNOMED CT Sex Male Assessment You had [...] Status Code Code System CREST SYNDROME active 37267186 SNOME D-CT HTN active 38738453 SNOMED-CT DEPRESSION active 65553611 SNOMED-CT GOUT active 59894377 SNOMED-CT Allergies and Adverse Reactions Allergy Substance Reaction Severity Start Date Concern Status Co de Code System No Known Drug Allergies Active 126168179 SNOMED-CT Plan of Treatment CT HEAD W/O CONTRAST 06/25/2023 X-RAY 05/26/2023 NM BONE SCAN WHOLE BODY 05/07/2023 US GUIDED NEEDLE BIOPSY 04/08/2023 Encounters Encounter Diagnosis Start Date Code Code Sys tem Malignant neoplasm of prostate 10/06/2023 SNOMED-CT Personal Care Team Section Performer Name Performer Role Active Date Inactive Da te
--- OUTSIDE RECORDS SUMMARY | 2024-09-15 14:53 | XMS_ITS ---
Author Organization Unknown Address [address] [place] [address] [phone] Phone Care Team Providers Care Doctor Of Optometry Name Role Phone OSIRIS Dhillon Attending Unavailable HOA Reyes Primary Unavailable Results URINALYSIS MICROSCOPIC ONLY - Collect Date/Time: 09/08/2023 11:30 [facility] ID: [id number] [address] [place], [place], [address] LOINC: 47365-0 Test Value Unit Reference Range Code Code System Flag WBCs 25-100 0-5 / hpf 79504-3 LOINC RBCs 10-25 0-5 / hpf 29101-0 LOINC Epith cells none 0-5 / hpf Crystals none none Bacteria large none Mucus none none Casts none none /lpf Other Social History Type Status Start Date End Date Code Code Syst em Smoking History Former smoker 2181905 SNOMED CT Sex Male Assessment You had [...] Status Code Code System CREST SYNDROME active 55272449 SNOME D-CT HTN active 50063811 SNOMED-CT DEPRESSION active 16626320 SNOMED-CT GOUT active 04908429 SNOMED-CT Allergies and Adverse Reactions Allergy Substance Reaction Severity Start Date Concern Status Co de Code System No Known Drug Allergies Active 574810108 SNOMED-CT Plan of Treatment CT HEAD W/O CONTRAST 06/25/2023 X-RAY 05/26/2023 NM BONE SCAN WHOLE BODY 05/07/2023 US GUIDED NEEDLE BIOPSY 04/08/2023 Encounters Encounter Diagnosis Start Date Code Code Sys tem Blood in urine 09/08/2023 18270495 SNOMED-CT Personal Care Team Section Performer Name Performer Role Active Date Inactive Da te
--- OUTSIDE RECORDS SUMMARY | 2024-09-15 14:53 | XMS_ITS ---
Author Organization Unknown Address [address] [place] [address] [phone] Phone Care Team Providers Care Carpet Measurer Name Role Phone KETAN DO Temi Attending Unavailable HOA Reyes Primary Unavailable Social History Type Status Start Date End Date Code Code Syst em Smoking History Former smoker 1914776 SNOMED CT Sex Male Assessment You had [...] Status Code Code System CREST SYNDROME active 24044681 SNOME D-CT HTN active 44381161 SNOMED-CT DEPRESSION active 68040010 SNOMED-CT GOUT active 38356423 SNOMED-CT Allergies and Adverse Reactions Allergy Substance Reaction Severity Start Date Concern Status Co de Code System No Known Drug Allergies Active 458062479 SNOMED-CT Plan of Treatment CT HEAD W/O CONTRAST 06/25/2023 X-RAY 05/26/2023 NM BONE SCAN WHOLE BODY 05/07/2023 US GUIDED NEEDLE BIOPSY 04/08/2023 Encounters Encounter Diagnosis Start Date Code Code Sys tem Encounter for antineoplastic chemotherapy 07/03/2023 SNOMED-CT Personal Care Team Section Performer Name Performer Role Active Date Inactive Da te
--- OUTSIDE RECORDS SUMMARY | 2024-09-15 14:54 | XMS_ITS ---
Author Organization [facility] Address [address] [place] [address] Care Team Providers Care Clip Wrapper Name Role Phone Maritza Dubon Primary Care Provider UnavailCheli Pham Unavailable [phone] ALLERGIES No Known Allergies RESULTS Component Value Reference Range Notes PSA Diagnostic Reviewed date:06/27/2024 12:30:01 PM Interpretation:4.9 Performing Lab: Notes/Report: 4.9 REASON FOR VISIT PSA Prior Janki 8 [...] Blood pressure diastolic 74 mm Hg 024 Weight 130 lbs 05/03/2024 BMI 20.73 kg/m2 05/03/2024 Height 66.4 in 05/03/2024 Encounters Encounter Location Date Provider Diagnosis [facility] [address] [address] 05/03/2024 Cheli Keith Malignant neoplasm of prostate C61 ASSESSMENTS Encounter Date Diagnosis Assessment Notes Treatment Notes Treatment Clinical Notes 05/03/2024 Malignant neoplasm of prostate (ICD-10 - C61) PLAN OF TREATMENT Medication Medication Name Sig Start Date Stop Date Notes Lupron Depot (3-Month) 22.5 MG as directed Intramuscular 0 07/19/2023 Next Appt Details Follow Up: 6 Weeks, Reason: Prostate cancer discuss PSA results Provider Name:Cheli amezquita, 09/19/2024 01:00:00 PM, [address] [place] [address], [phone], Progress Notes * KRISTIN CAO JDOB: (78 yo M)Acc No.[id number]:05/03/2024 Progress Notes Patient:??BETINA CAO Provider:??Jeanne Keith MD :1945?Age:78 Y?Sex:Ma le Date:05/03/2024 Address:[facility] [address] [facility] Pcp:Maritza Dubon Subjective: * Chief Complaints: * ?PSA Prior Janki 8 pr ostate cancer * HPI: ?Constitutional:? The patient returns in follow-up for his [place] 8 prostate cancer unfortunately his PSA continues [...] Janki 8 03/2023 * Hospitalization/Major Diagno stic Procedure:?? [...] * Allergies:??N.K.D.A.no[Aller gies Verified] Objective: * Vitals:??BP: 122/74 mm Hg, W t: 130 lbs, BMI: 20.73 Index, Ht: 66.4 in, Ht-cm: 168.66 cm, Wt-k.97 kg. * Examination: ?General Examination: ?GENERAL APPEARANCE:?? pleasant, in no acute distress, frail.?SKIN:?? normal, no rashes, no suspicious lesions, warm and dry.?LUNGS:?? normal.?PSYCH:?? alert, oriented.? Assessment: * Assessment: 1.??Malignant neoplasm of pr mary - C61 (Primary)?? The patient will restart hor frantz blockade. He will take vitamin D 2000 units a day, and calcium 1000 mg daily and try to get some daily exercise. I will recheck his PSA in 6 weeks. Hopefully it is decreasing if not he will need to have a visit with oncology at [facility]. Plan: * Treatment: * ?Immunizations:?Immunization record has been reviewed and updated. * Procedure Codes:??[id number] BMI< 30 AND >=22 [id number] DOC MEDS VERIFIED W/PT OR [id number] FLU IMMUNIZE ORDER/[id number] Pneum vax admin 60+ * Preventive Medicine:?Counseling:?Care [...]
--- OUTSIDE RECORDS SUMMARY | 2024-09-15 14:54 | XMS_ITS ---
Author Organization [facility] Address [address] [place] [address] Care Team Providers Care Meal Attendant Name Role Phone Maritza Dubon Primary Care Provider Unavailab Cheli López Unavailable [phone] Encounters Encounter Location Date Provider Diagnosis [facility] [address] [place] [address] 06/23/2024 Cheli Keith PLAN OF TREATMENT Next Appt Details Provider Name:Cheli amezquita, 09/19/2024 01:00:00 PM, [address] [place], [address], Progress Notes * KRISTIN CAODOB: (78 yo M)Acc No.[id number]:06/23/2024 Patient:??BETINA CAO :1945?Age:78 Y?Sex:Mell beth Address:[facility] [address] [place], [address] * true * Date:??
--- OUTSIDE RECORDS SUMMARY | 2024-09-15 14:54 | XMS_ITS ---
Author Organization Unknown Address [address] [place] [phone] Phone Care Team Providers Care Audio Visual Production Specialist Name Role Phone KETAN DO Temi Attending Unavailable HOA Reyes Primary Unavailable Social History Type Status Start Date End Date Code Code Syst em Smoking History Former smoker 1761531 SNOMED CT Sex Male Assessment You had [...] Status Code Code System CREST SYNDROME active 01663025 SNOME D-CT HTN active 66672709 SNOMED-CT DEPRESSION active 45492774 SNOMED-CT GOUT active 81464840 SNOMED-CT Allergies and Adverse Reactions Allergy Substance Reaction Severity Start Date Concern Status Co de Code System No Known Drug Allergies Active 844710233 SNOMED-CT Plan of Treatment CT HEAD W/O CONTRAST 06/25/2023 X-RAY 05/26/2023 NM BONE SCAN WHOLE BODY 05/07/2023 US GUIDED NEEDLE BIOPSY 04/08/2023 Encounters Encounter Diagnosis Start Date Code Code Sys tem Encounter for antineoplastic chemotherapy 05/10/2024 SNOMED-CT Personal Care Team Section Performer Name Performer Role Active Date Inactive Da te
--- OUTSIDE RECORDS SUMMARY | 2024-09-15 14:54 | XMS_ITS ---
Author Organization [facility] Address [address] [place] [address] Care Team Providers Care Adjudication Specialist Name Role Phone Maritza Dubon Primary Care Provider Unavailab Cheli López Unavailable [phone] Encounters Encounter Location Date Provider Diagnosis [facility] [address] [place] [address] 08/25/2024 Cheli Keith PLAN OF TREATMENT Next Appt Details Provider Name:Cheli amezquita, 09/19/2024 01:00:00 PM, [address] [place], [address], Progress Notes * KRISTIN CAODOB: (79 yo M)Acc No.[id number]:08/25/2024 Patient:??BETINA CAO :1945?Age:79 Y?Sex:Mell beth Address:[facility] [address] , [place], [address] * true * Date:??
--- OUTSIDE RECORDS SUMMARY | 2024-09-15 14:55 | XMS_ITS | Encounter Summary ---
Author Organization [facility] Address [address] [place] [address] Care Team Providers Care Virtual Assistant Name Role Phone Yumiko Chandra Primary Care Provider [phone] Reason for Visit * (Routine/Next Available) - Receiving Office to Obtain Authorization Specialty Diagnoses / Procedures Referred By Contac t Referred To Contact Procedures CT OUTSIDE IMAGES HEAD AND NECK Imaging, External Referral ID Status Reason Start Date Expiration Date Visits Requested Visits Authorized [id number] Receiving Office to Obtain Authorization 06/05/2023 1 1 Encounter Details Date Type Department Care Team (Latest Contact Info) Description 05/30/2023 0:05 EDT - 05/30/2023 23:59 EDT Hospital Encounter [facility] [place] Discharge Disposition: Home or [...] on filedocumented in this encounter Care Teams Virtual Assistant Relationship Specialty Start Date End Date Yumiko Chandra [address] [place] [address] PCP - General Internal Medicine - Primary Care 08/29/22 documented as of this encounter
--- OUTSIDE RECORDS SUMMARY | 2024-09-15 14:55 | XMS_ITS | Encounter Summary ---
Author Organization [facility] Address [address] [place] [address] Care Team Providers Care Registration Clerk Name Role Phone Yumiko Chandar Primary Care Provider Reason for Visit * (Routine/Next Available) - Receiving Office to Obtain Authorization Specialty Diagnoses / Procedures Referred By Contac t Referred To Contact Procedures US OUTSIDE IMAGES OTHER Imaging, External Referral ID Status Reason Start Date Expiration Date Visits Requested Visits Authorized [id number] Receiving Office to Obtain Authorization 06/05/2023 1 1 Encounter Details Date Type Department Care Team (Latest Contact Info) Description 04/08/2023 - 04/08/2023 23:59 EDT Hospital Encounter [facility] [place] Discharge Disposition: [...] on filedocumented in this encounter Care Teams Registration Clerk Relationship Specialty Start Date End Date Yumiko Chandra [address] [place] [address] PCP - General Internal Medicine - Primary Care 08/29/22 documented as of this encounter
--- OUTSIDE RECORDS SUMMARY | 2024-09-15 14:55 | XMS_ITS | Encounter Summary ---
Author Organization [facility] Address [address] [place] [address] Care Team Providers Care Model Builder Name Role Phone Unavailable Primary Care Provider Unavailabl e Encounter Details Date Type Department Care Team (Late st Contact Info) Description 08/12/2022 Orders Only [facility] Radiology - Main [place] [address] [place] [address] Neva Hyde MD [address] [place] [address] Social History Tobacco Use Types Packs/Day Years [...]
--- OUTSIDE RECORDS SUMMARY | 2024-09-15 14:55 | XMS_ITS | Patient Health Record ---
Author Organization [facility] Address [address] [place] [address] Care Team Providers Care Joint Maker Machine Name Role Phone Maritza Dubon Primary Care Provider UnavailCheli Pham Unavailable [phone] ALLERGIES No Known Allergies RESULTS Component Value Reference Range Notes PSA Diagnostic Reviewed date:06/27/2024 12:30:01 PM Interpretation:4.9 Performing Lab: Notes/Report: 4.9 PSA Diagnostic Reviewed date:10/15/2023 01:23:34 PM Interpretation:1.05 [...] Active confirmed Malignant nii or of prostate (437311565) Problem Essential (primary) hypertension (I10) Active confirmed Essential hypertension (02231920) Problem Urge incontinence (N39.41) Active confirmed Urge incontinence of urine (32472171) Problem Hematuria, unspecified (R31.9) Active confirmed Hematuria (41315079) Problem Retention of urine, unspecified (R33.9) Active confirmed Retention of urine (424146702) Problem Benign prostatic hyperplasia with lower urinary tract symptoms (N40.1) Active confirmed Benign prostati c hyperplasia with outflow obstruction (648925200) Problem Elevated prostate specific antigen [PSA] (R97.20) Active confirmed Prostate specific antigen above reference range (046353222) VITAL SIGNS Blood pressure diastolic 74 mm Hg 05/03/2024 Height 66.4 in 05/03/2024 Blood pressure systolic 122 mm Hg 05/03/2024 Weight 130 lbs 05/03/2024 BMI 20.73 kg/m2 05/03/2024 Encounters Encounter Location Date Provider Diagnosis [facility] [address] [address] 10/06/2023 Cheli Keith Asymptomatic microscopic hematuria R31.21 [facility] [address] [address] 05/03/2024 Cheli Keith Malignant neoplasm o f prostate C61 [facility] [address] [address] 09/15/2023 Cheli Keith Urge incontinence N39.41 [facility] [address] [address] 10/22/2023 Cheli [facility] [address] [address] 06/23/2024 Cheli [facility] [address] [address] 08/25/2024 Cheli Keith ASSESSMENTS Encounter Date Diagnosis Assessment Notes Treatment Notes Treatment Clinical Notes 09/15/2023 Urge incontinence (ICD-10 - N39.41) 10/06/2023 Asymptomatic microscopic hematuria (ICD-10 - R31.21) 05/03/2024 Malignant neoplasm of prostate (ICD-10 - C61) 10/06/2023 Other The patient was prepped and [...] TREATMENT Pending Test Test Name Order Date - PVR (Post-Void Residual Volume) 2023 PSA Diagnostic 06/23/2024 Next Appt Details Provider Name:Cheli Dhillon Pe bia, 09/19/2024 01:00:00 PM, [address] [place] [address], [phone], Insurance Providers Payer Name Payer Address Payer Phone Subscriber Number Group Number Insured Name Patient Relationship to Insured Coverage Start Date Coverage End Date Medicare of [place] - J14 [address] [place] [id number] Self - patient is the insured Medicaid of [place] [address] [place] [id number] Self - patient is the insured MEDICAL (GENERAL) HISTORY Medical History History ICD Code Ventricular Bigeminy Fatigue Ascending Aorta Dilation Hearing Loss Bilateral Weight Loss Former Smoker Gout CREST Syndrome Anemia Diverticulosis GERD Depression Hypogonadism Elevated PSA Sidney 8 Prostate CA - 03/2023 CREST syndrome Surgical History Surgery Date(Month/Year) Circumcision Tonsils Back Prostate Biopsy - Sidney 8 03/2023
--- OUTSIDE RECORDS SUMMARY | 2024-09-15 14:55 | XMS_ITS | Encounter Summary ---
Author Organization [facility] Address [address] [place] [address] Care Team Providers Care Customer Supply Coordinator Name Role Phone KonstantingloriaYumiko Primary Care Provider [phone] Reason for Visit * Reason Onset Date Comments Review Treatment Options 06/10/2023 Encounter Details Date Type Department Care Team (Late st Contact Info) Description 06/10/2023 Telephone [facility] - [facility] - [facility] [address] [place] [address] Fede Roman MD [address] [facility], [facility] [address] [place] [address] Review Treatment Options Social History Tobacco Use Types Packs/Day Years Used Date Smoking Tobacco: Never Assessed Sex and Gender Information Value Date Recorded Sex Assigned at Not on file Gender Identity Not on file Sexual Orientation Not on file documented as of this encounter Miscellaneous Notes * Telephone Encounter - Fede Roman MD - 06/10/2023 0818 EDT 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 He was evaluated last week in this office by Dr. Dalal and patient has started bicalutamide.He was scheduled to come in tomorrow for the Lupron here but he lives in [place] which is much closer to Dr. Keith. Today I spoke with Shree and Dr. Keith's office and they are arranging for himto begin Lupron in [place] next week. We will cancel his appointment here and see him on an as-needed basis documented in this encounter Plan of Treatment Not on file documented as of this encounter Visit Diagnoses Not on filedocumented in this encounter Care Teams Customer Supply Coordinator Relationship Specialty Start Date End Date Yumiko Chandra [address] [place] [address] PCP - General Internal Medicine - Primary Care 08/29/22 documented as of this encounter
--- OUTSIDE RECORDS SUMMARY | 2024-09-15 14:55 | XMS_ITS | Encounter Summary ---
Author Organization [facility] Address [address] [place] [address] Care Team Providers Care Internal Revenue Service Agent Name Role Phone Yumiko Chandra Primary Care Provider [phone] Encounter Details Date Type Department Care Team (Late st Contact Info) Description 01/19/2024 Lab Requisition [facility] Pathology & Laboratory Medicine - [facility] [address] [place] [address] Outr Resulting Lab, Provider Social History Tobacco [...] PSA 4.6 <=6.5 ng/mL 01/19/2024 22:01 EDT [facility] Blood VENOUS BLOOD / Unknown 01/19/2024 11:00 EDT 01/19/2024 21:20 EDT Narrative [facility] - 01/19/2024 22:01 EDT NOTE: Serum PSA concentration should not be interpreted as absolute evidence for the presence or absence of malignant disease. Assayed on Siemens ADVIA Centaur XPT using chemiluminescent technology.??Values obtained by using different assay methods cannot be used interchangeably. Provider Outr Resulting Lab CHEMISTRY & BLOOD GAS ORDERABLES [facility] [address] [place] [phone] documented in this encounter Visit Diagnoses Not on filedocumented in this encounter Care Teams Internal Revenue Service Agent Relationship Specialty Start Date End Date Yumiko Chandra [address] [place] [address] PCP - General Internal Medicine - Primary Care 08/29/22 documented as of this encounter
--- OUTSIDE RECORDS SUMMARY | 2024-09-15 14:55 | XMS_ITS | Encounter Summary ---
Author Organization [facility] Address [address] [place] [address] Care Team Providers Care Survey And Mapping Technician Name Role Phone Yumiko Chandra Primary Care Provider [phone] Reason for Visit * (Routine/Next Available) - Receiving Office to Obtain Authorization Specialty Diagnoses / Procedures Referred By Contac t Referred To Contact Procedures XR OUTSIDE IMAGES PELVIS Imaging, External Referral ID Status Reason Start Date Expiration Date Visits Requested Visits Authorized [id number] Receiving Office to Obtain Authorization 06/05/2023 1 1 Encounter Details Date Type Department Care Team (Latest Contact Info) Description 05/21/2023 - 05/21/2023 23:[address] [facility] Secondary [place] Discharge Disposition: Home [...] on filedocumented in this encounter Care Teams Survey And Mapping Technician Relationship Specialty Start Date End Date Yumiko Chandra [address] [place] [address] PCP - General Internal Medicine - Primary Care 08/29/22 documented as of this encounter
--- OUTSIDE RECORDS SUMMARY | 2024-09-15 14:55 | XMS_ITS | Encounter Summary ---
Author Organization [facility] Address [address] [place] [address] Care Team Providers Care Catalytic Case Operator Name Role Phone Yumiko Chandra Primary Care Provider [phone] Encounter Details Date Type Department Care Team (Late st Contact Info) Description 02/04/2023 Lab Requisition [facility] Pathology & Laboratory Medicine - [facility] [address] [place] [address] Outr Resulting Lab, Provider Social History Tobacco [...] PSA 25.5(H) <=6.5 ng/mL 02/04/2023 18:24 EDT [facility] Blood VENOUS BLOOD / Unknown 02/03/2023 11:55 EDT 02/04/2023 17:15 EDT Narrative [facility] - 02/04/2023 18:24 EDT NOTE: Serum PSA concentration should not be interpreted as absolute evidence for the presence or absence of malignant disease. Assayed on Siemens ADVIA Centaur XPT using chemiluminescent technology.??Values obtained by using different assay methods cannot be used interchangeably. Provider Outr Resulting Lab CHEMISTRY & BLOOD GAS ORDERABLES [facility] [address] [place] [address] documented in this encounter Visit Diagnoses Not on filedocumented in this encounter Care Teams Catalytic Case Operator Relationship Specialty Start Date End Date Yumiko Chandra [address] [place] [address] PCP - General Internal Medicine - Primary Care 08/29/22 documented as of this encounter
--- OUTSIDE RECORDS SUMMARY | 2024-09-15 14:55 | XMS_ITS | Encounter Summary ---
Author Organization [facility] Address [address] [place] [address] Care Team Providers Care Barrel Marker Name Role Phone Yumiko Chandra Primary Care Provider [phone] Encounter Details Date Type Department Care Team (Late st Contact Info) Description 06/05/2023 Documentation Visit [facility] Radiation Oncology - [facility] [address] [place], [place] [id number] Jade Swift, RN Social History Tobacco Use Types Packs/Day Years Used Date Smoking Tobacco: Never Assessed Sex and Gender Information Value Date Recorded Sex Assigned at Not on file Gender Identity Not on file Sexual Orientation Not on file documented as of this encounter Progress Notes * Jade Swift, MARTINEZ - 06/05/2023 1422 EDT Images from the [...] on filedocumented in this encounter Care Teams Barrel Marker Relationship Specialty Start Date End Date Yumiko Chandra [address] [place] [address] PCP - General Internal Medicine - Primary Care 08/29/22 documented as of this encounter
--- OUTSIDE RECORDS SUMMARY | 2024-09-15 14:55 | XMS_ITS | Encounter Summary ---
Author Organization [facility] Address [address] [place] [address] Care Team Providers Care Ward Nurse Name Role Phone Yumiko Chandra Primary Care Provider [phone] Encounter Details Date Type Department Care Team (Late st Contact Info) Description 06/08/2024 Lab Requisition [facility] Pathology & Laboratory Medicine - [facility] [address] [place] [address] Outr Resulting Lab, Provider Social History Tobacco [...] Associated Diagnosis Comments PSA TOTAL, DIAGNOSTIC Routine 06/07/2024 14:55 EDT documented in this encounter Results * PSA TOTAL, DIAGNOSTIC (06/07/2024 14:55 EDT) PSA 4.9 <=6.5 ng/mL 06/08/2024 18:11 EDT [facility] Blood VENOUS BLOOD / Unknown 06/07/2024 14:55 EDT 06/08/2024 16:41 EDT Narrative [facility] - 06/08/2024 18:11 EDT NOTE: Serum PSA concentration should not be interpreted as absolute evidence for the presence or absence of malignant disease. Assayed on Siemens ADVIA Centaur XPT using chemiluminescent technology.??Values obtained by using different assay methods cannot be used interchangeably. Provider Outr Resulting Lab CHEMISTRY & BLOOD GAS ORDERABLES [facility] [address] [place] [phone] documented in this encounter Visit Diagnoses Not on filedocumented in this encounter Care Teams Ward Nurse Relationship Specialty Start Date End Date Yumiko Chandra [address] [place] [address] PCP - General Internal Medicine - Primary Care 08/29/22 documented as of this encounter
--- OUTSIDE RECORDS SUMMARY | 2024-09-15 14:55 | XMS_ITS | Encounter Summary ---
Author Organization [facility] Address [address] [place] [address] Care Team Providers Care Mysql Database Developer Name Role Phone Yumiko Chandra Primary Care Provider [phone] Reason for Referral * Radiology Services (Routine/Next Available) - Authorization Not Required Specialty Diagnoses / Procedures Referred By Contac t Referred To Contact Radiology Diagnoses Thoracic aortic ectasia (HCC-CMS) Procedures MR ANGIO CHEST WO CONTRAST MR ANGIO CHEST W WO CONTRAST Yumiko Chandra [address] [place] [address] [facility] Referral ID Status Reason Start Date Expiration Date Visits Requested Visits Authorized [id number] Authorization Not Required 08/17/2023 1 1 Reason for Visit * Radiology Services (Routine/Next Available) - Authorization Not Required Specialty Diagnoses / Procedures [facility] Referred To Contact Radiology Diagnoses Thoracic aortic ectasia (HCC-CMS) Procedures MR ANGIO CHEST WO CONTRAST MR ANGIO CHEST W WO CONTRAST Yumiko Chandra [address] [place] [address] [facility] Referral ID Status Reason Start Date Expiration Date Visits Requested Visits Authorized [id number] Authorization Not Required 08/17/2023 1 1 Encounter Details Date Type Department Care Team (Latest Contact Info) Description 10/14/2023 13:27 EST - 10/14/2023 23:59 EST [facility] - [address] [place] [address] Thoracic aortic ectasia (HCC-CMS) Discharge Disposition: Home [...] follow-up is not felt to be necessary. [id number] Narrative 10/14/2023 15:25 EST MR ANGIO CHEST [...] follow-up is not felt to be necessary. [id number] Yumiko Chandra [facility] MRI ORDERABLES documented in this encounter Visit Diagnoses Diagnosis Thoracic aortic ectasia (HCC-CMS) Thoracic aortic ectasia documented in this encounter Care Teams Mysql Database Developer Relationship Specialty Start Date End Date Yumiko Chandra [address] [place] [address] PCP - General Internal Medicine - Primary Care 08/29/22 documented as of this encounter
--- OUTSIDE RECORDS SUMMARY | 2024-09-15 14:55 | XMS_ITS | Encounter Summary ---
Author Organization [facility] Address [address] [place] [address] Care Team Providers Care Front Office Clerk Name Role Phone Yumiko Chandra Primary Care Provider [phone] Reason for Visit * (Routine/Next Available) - Receiving Office to Obtain Authorization Specialty Diagnoses / Procedures Referred By Contac t Referred To Contact Procedures NM OUTSIDE IMAGES Imaging, External Referral ID Status Reason Start Date Expiration Date Visits Requested Visits Authorized [id number] Receiving Office to Obtain Authorization 06/05/2023 1 1 Encounter Details Date Type Department Care Team (Latest Contact Info) Description 05/07/2023 - 05/07/2023 23:59 EDT Hospital Encounter [facility] Secondary Reads [place] Discharge Disposition: Home [...] on filedocumented in this encounter Care Teams Front Office Clerk Relationship Specialty Start Date End Date Yumiko Chandra [address] [place] [address] PCP - General Internal Medicine - Primary Care 08/29/22 documented as of this encounter
--- OUTSIDE RECORDS SUMMARY | 2024-09-15 14:55 | XMS_ITS | Encounter Summary ---
Author Organization [facility] Address [address] [place] [address] Care Team Providers Care Advertising Designer Name Role Phone Yumiko Chandra Primary Care Provider [phone] Reason for Visit * (Routine/Next Available) - Receiving Office to Obtain Authorization Specialty Diagnoses / Procedures Referred By Contac t Referred To Contact Procedures XR OUTSIDE IMAGES CHEST Imaging, External Referral ID Status Reason Start Date Expiration Date Visits Requested Visits Authorized [id number] Receiving Office to Obtain Authorization 06/05/2023 1 1 Encounter Details Date Type Department Care Team (Latest Contact Info) Description 11/27/2022 Hospital Encounter [facility] Secondary Reads [place] Discharge Disposition: Home [...] on filedocumented in this encounter Care Teams Advertising Designer Relationship Specialty Start Date End Date Yumiko Chandra [address] [place] [address] PCP - General Internal Medicine - Primary Care 08/29/22 documented as of this encounter
--- OUTSIDE RECORDS SUMMARY | 2024-09-15 14:55 | XMS_ITS | Encounter Summary ---
Author Organization [facility] Address [address] [place] [address] Care Team Providers Care Headline Writer Name Role Phone Yumiko Chandra Primary Care Provider [phone] Encounter Details Date Type Department Care Team (Late st Contact Info) Description 10/25/2020 Lab Requisition [facility] Pathology & Laboratory Medicine - [facility] [address] [place] [address] Outr Resulting Lab, Provider Social History Tobacco [...] 0.0 - 6.5 ng/mL 10/25/2020 20:33 EST [facility] Blood VENOUS BLOOD / Unknown 10/24/2020 12:27 EST 10/25/2020 17:11 EST Narrative [facility] - 10/25/2020 20:33 EST NOTE: Serum PSA concentration should not be interpreted as absolute evidence for the presence or absence of malignant disease. Assayed on Siemens ADVIA Centaur XPT using chemiluminescent technology.??Values obtained by using different assay methods cannot be used interchangeably. Provider Outr Resulting Lab CHEMISTRY & BLOOD GAS ORDERABLES [facility] [address] [place] [address] documented in this encounter Visit Diagnoses Not on filedocumented in this encounter Care Teams Headline Writer Relationship Specialty Start Date End Date Yumiko Chandra [address] [place], [place] [address] PCP - General Internal Medicine - Primary Care 08/29/22 documented as of this encounter
--- OUTSIDE RECORDS SUMMARY | 2024-09-15 14:55 | XMS_ITS | Encounter Summary ---
Author Organization [facility] Address [address] [place] [address] Care Team Providers Care Senior Inspector Name Role Phone Yumiko Chandra Primary Care Provider [phone] Encounter Details Date Type Department Care Team (Late st Contact Info) Description 04/26/2024 Lab Requisition [facility] Pathology & Laboratory Medicine - [facility] [address] [place] [address] Outr Resulting Lab, Provider Social History Tobacco [...] PSA 9.8(H) <=6.5 ng/mL 04/26/2024 18:48 EDT [facility] Blood VENOUS BLOOD / Unknown 04/25/2024 14:30 EDT 04/26/2024 17:03 EDT Narrative [facility] - 04/26/2024 18:48 EDT NOTE: Serum PSA concentration should not be interpreted as absolute evidence for the presence or absence of malignant disease. Assayed on Siemens ADVIA Centaur XPT using chemiluminescent technology.??Values obtained by using different assay methods cannot be used interchangeably. Provider Outr Resulting Lab CHEMISTRY & BLOOD GAS ORDERABLES [facility] [address] [place] [address] documented in this encounter Visit Diagnoses Not on filedocumented in this encounter Care Teams Senior Inspector Relationship Specialty Start Date End Date Yumiko Chandra [address] [place] [address] PCP - General Internal Medicine - Primary Care 08/29/22 documented as of this encounter
--- OUTSIDE RECORDS SUMMARY | 2024-09-15 14:55 | XMS_ITS | Encounter Summary ---
Author Organization [facility] Address [address] [place] [address] Care Team Providers Care Research Associate Name Role Phone Yumiko Chandra Primary Care Provider [phone] Reason for Visit * (Routine/Next Available) - Receiving Office to Obtain Authorization Specialty Diagnoses / Procedures Referred By Contac t Referred To Contact Procedures CT OUTSIDE IMAGES CHEST Imaging, External Referral ID Status Reason Start Date Expiration Date Visits Requested Visits Authorized [id number] Receiving Office to Obtain Authorization 06/05/2023 1 1 Encounter Details Date Type Department Care Team (Latest Contact Info) Description 05/30/2023 - 05/30/2023 0:04 EDT Hospital Encounter [facility] Secondary Reads [place] Discharge Disposition: [...] on filedocumented in this encounter Care Teams Research Associate Relationship Specialty Start Date End Date Yumiko Chandra [address] [place] [address] PCP - General Internal Medicine - Primary Care 08/29/22 documented as of this encounter
--- OUTSIDE RECORDS SUMMARY | 2024-09-15 14:55 | XMS_ITS | Clinical Summary ---
Author Organization [facility] Address [address] [place] [address] Care Team Providers Care Geotechnical Intern Name Role Phone Yumiko Chandra Primary Care Provider [phone] Allergies No known active allergies Medications Medication [...] 2006 Fall Risk Screening 2011 COVID-19 Vaccine (2022-24 season) 2023 Care Teams Geotechnical Intern Relationship Specialty Start Date End Date Yumiko Chandra [address] [place] [address] PCP - General Internal Medicine - Primary Care 08/29/22
--- OUTSIDE RECORDS SUMMARY | 2024-09-15 14:55 | XMS_ITS | Encounter Summary ---
Author Organization [facility] Address [address] [place] [address] Care Team Providers Care Freight Handler Name Role Phone Unavailable Primary Care Provider Unavailabl e Encounter Details Date Type Department Care Team (Late st Contact Info) Description 03/11/2000 15:26 EDT Hospital Encounter [facility] [address] [place] [address] Carlyle Rojas Chi, MD [address] [facility] [address] [place] [phone] Unknown, Provider, Discharge Disposition: Auto Discharge Social History Tobacco [...] & PF4 ORD ERABLES Performing Organization Address [facility] Co de Phone Number [facility] [address] [place] [address] * PROTIME (03/11/2000 13:15 EDT) Pro Time 12.2 11.7 - 13.4 secs [facility] I.N.R. 0.9 0.8 - 1.2 Ratio [facility] Comment: Moderate Intensity Coumadin INR = 2.0-3.0 Adjustments in anticoagulant therapy dose should be based upon the INR and NOT the Pro Time 03/11/2000 13:1 5 EDT 03/11/2000 13:17 EDT Carlyle Rojas MD HEMATOLOGY & PF4 ORD ERABLES Performing Organization Address [facility] Co de Phone Number [facility] [address] [place] [address] * (ABNORMAL) IRON (03/11/2000 13:15 EDT) Iron 55(L) 70 - 180 ug/dl [facility] 03/11/2000 13:1 5 EDT 03/11/2000 13:17 EDT Carlyle Rojas MD CHEMISTRY & BLOOD GA S ORDERABLES Performing Organization Address City/[facility]/ZIP Co de Phone Number [facility] [address] [place] [address] * IBC (03/11/2000 13:15 EDT) Pathologist [facility] TIBC 327 250 - 450 ug/dl [facility] 03/11/2000 13:1 5 EDT 03/11/2000 13:17 EDT Carlyle Rojas MD CHEMISTRY & BLOOD GA S ORDERABLES Performing Organization Address [facility] Co de Phone Number [facility] [address] [place] [address] * ANTI CENTROMERE AB (03/11/2000 13:15 EDT) [facility] Anti Centromere Ab <40 0 - 40 dils [facility] 03/11/2000 13:1 5 EDT 03/11/2000 13:17 EDT Carlyle Rojas MD HISTORICAL LAB FOR S Q LOAD Performing Organization Address [facility] Co de Phone Number [facility] [address] [place] [address] * (ABNORMAL) HEMAGRAM & DIFF (03/11/2000 13:15 EDT) [facility] WBC 6.50 4.0 - 10.4 K/cmm [facility] RBC 4.72 4.36 - 5.78 M/cmm [facility] Hemoglobin 14.1 13.8 - 17.3 gm/dl [facility] HCT 42.4 39.5 - 50.2 % [facility] MCV 90 81 - 95 fl [facility] MCH 29.8 27.6 - 33.0 pg [facility] MCHC 33.1 32.8 - 36.4 gm/dl [facility] PLT 184 141 - 320 K/cmm [facility] RDW-CV 14.6(H) 11.8 - 14.1 [...] FOR S Q LOAD Performing Organization Address [facility] Co de Phone Number [facility] [address] [place] [address] * ARTHRITIS 1 (03/11/2000 13:15 EDT) Anti Nuclear Ab <40 0 - 40 Dils [facility] Rheumatoid Factor <20 <20 IU/ml [facility] 03/11/2000 13:1 5 EDT 03/11/2000 13:17 EDT Carlyle Rojas MD IMMUNOLOGY AND SEROL OGY ORDERABLES Performing Organization Address [facility] Co de Phone Number [facility] [address] [place] [address] * ELBOW 2 VIEWS (03/11/2000 13:06 EDT) [...]
--- OUTSIDE RECORDS SUMMARY | 2024-09-15 14:55 | XMS_ITS | Encounter Summary ---
Author Organization [facility] Address [address] [place] [address] Care Team Providers Care Litigator Name Role Phone Yumiko Chandra Primary Care Provider [phone] Reason for Referral * Radiology Services (Routine/Next Available) - Receiving Office to Obtain Authorization Specialty Diagnoses / Procedures Referred By Contac t Referred To Contact Radiology Diagnoses Thoracic aortic ectasia (HCC-CMS) Procedures MR ANGIO CHEST WO CONTRAST MR ANGIO CHEST W WO CONTRAST Yumiko Chandra [address] [place] [address] [facility] Referral ID Status Reason Start Date Expiration Date Visits Requested Visits Authorized [id number] Receiving Office to Obtain Authorization 08/12/2022 1 1 Reason for Visit * Radiology Services (Routine/Next Available) - Receiving Office to Obtain Authorization Specialty Diagnoses / Procedures Referred By Contac t Referred To Contact Radiology Diagnoses Thoracic aortic ectasia (HCC-CMS) Procedures MR ANGIO CHEST WO CONTRAST MR ANGIO CHEST W WO CONTRAST Yumiko Chandra [address] [place] [address] [facility] Referral ID Status Reason Start Date Expiration Date Visits Requested Visits Authorized [id number] Receiving Office to Obtain Authorization 08/12/2022 1 1 Encounter Details Date Type Department Care Team (Latest Contact Info) Description 10/07/2022 8:30 EST - 10/07/2022 23:59 EST Hospital [facility] Center Radiology MRI - [address] [address] Thoracic aortic ectasia (HCC-CMS) Discharge Disposition: Home [...] large stone in the gallbladder. Yumiko Chandra [facility] ORDERABLES documented in this encounter Visit Diagnoses Diagnosis Thoracic aortic ectasia (HCC-CMS) Thoracic aortic ectasia documented in this encounter Care Teams Litigator Relationship Specialty Start Date End Date Yumiko Chandra [address] [facility] [place] [address] PCP - General Internal Medicine - Primary Care 08/29/22 documented as of this encounter
--- OUTSIDE RECORDS SUMMARY | 2024-09-15 14:55 | XMS_ITS | Encounter Summary ---
Author Organization [facility] Address [address] [place] [address] Care Team Providers Care Print Machine Operator Name Role Phone Yumiko Chandra Primary Care Provider [phone] Reason for Visit * (Routine/Next Available) - Receiving Office to Obtain Authorization Specialty Diagnoses / Procedures Referred By Contac t Referred To Contact Procedures CT OUTSIDE IMAGES HEAD Imaging, External Referral ID Status Reason Start Date Expiration Date Visits Requested Visits Authorized [id number] Receiving Office to Obtain Authorization 06/05/2023 1 1 Encounter Details Date Type Department Care Team (Latest Contact Info) Description 06/04/2023 - 06/04/2023 23:59 EDT Hospital Encounter [facility] Secondary Reads [place] Discharge Disposition: [...] on filedocumented in this encounter Care Teams Print Machine Operator Relationship Specialty Start Date End Date Yumiko Chandra [address] [place] [address] PCP - General Internal Medicine - Primary Care 08/29/22 documented as of this encounter
--- OUTSIDE RECORDS SUMMARY | 2024-09-15 14:55 | XMS_ITS | Referral Summary ---
Author Organization [facility] Address [address] [place] [address] Care Team Providers Care Digital Asset Manager Name Role Phone Yumiko Chandra Primary Care Provider [phone] Allergies No known active allergies Medications Medication [...] - Plan of Treatment Not on file Care Teams Digital Asset Manager Relationship Specialty Start Date End Date Yumiko Chandra [address] [place] [address] PCP - General Internal Medicine - Primary Care 08/29/22
--- OUTSIDE RECORDS SUMMARY | 2024-09-15 14:55 | XMS_ITS | Encounter Summary ---
Author Organization [facility] Address [address] [place] [address] Care Team Providers Care Direct Care Worker Name Role Phone Unavailable Primary Care Provider Unavailabl e Encounter Details Date Type Department Care Team (Late st Contact Info) Description 08/12/2022 Orders Only [facility] Radiology - Main [place] [address] [place] [address] Neva Hyde MD [address] [place] [address] Social History Tobacco Use Types Packs/Day Years [...]
--- OUTSIDE RECORDS SUMMARY | 2024-09-15 14:55 | XMS_ITS | Encounter Summary ---
Author Organization [facility] Address [address] [place] [address] Care Team Providers Care Support Services Tech Name Role Phone Yumiko Chandra Primary Care Provider Reason for Visit * Reason Comments Prostate Cancer Encounter Details Date Type Department Care Team (Latest Contact Info) Description 06/05/2023 13:30 EDT Initial consult [facility] [place] [address] [place] [address] Duc Dalal MD [address] [place] [phone] Malignant neoplasm of prostate (HCC-CMS) (Primary [...] patient. IMPRESSION: Adenocarcinoma of the prostate gland [place] 4+4 = 8 involving all biopsies, PSA [...] for prostate carcinoma. 1 was positive for Janki 7 and the others were positive for [...] metastatic disease. RADIOLOGY: Bone scan done at [facility] 05/07/2023 Degenerative changes in both shoulders there is increased uptake in the contiguous right ribs consistent with recent rib fractures there is a focus of radiotracer uptake involving the left inferior pubic ramus. The bony metastatic deposit could not be excluded. CT scan of the chest done at [facility] 05/30/2023 Pulmonary parenchyma shows 6 mm [...] 10/24/20 6.7 02/03/23 25.5 Pathology done at [facility] 04/08/2023 prostate right base Janki 8 2 cores +70% tissue involved with tumor Right mid [place] score 8 1 core positive out of 1 percentage of prostate tissue involved 90% Right apex prostate adenocarcinoma [place] 8 1 core +10% of tissue involved Left base prostate adenocarcinoma [place] 4+32 cores +75% of tissue involved Left mid Janki a 1 core +70% of tissue Left apex prostate adenocarcinoma [place] 8 1 core +95% involvement PHYSICAL EXAM: [...] Visit Diagnoses Diagnosis Malignant neoplasm of prostate ([facility]-CMS)- Primary Malignant neoplasm of prostate documented in [...] daily. added in this encounter Care Teams Support Services Tech Relationship Specialty Start Date End Date Yumiko Chandra [address] [place] [address] PCP - General Internal Medicine - Primary Care 08/29/22 documented as of this encounter
--- OUTSIDE RECORDS SUMMARY | 2024-09-15 14:55 | XMS_ITS | Encounter Summary ---
Author Organization [facility] Address [address] [place] [address] Care Team Providers Care Branch Chief Name Role Phone Yumiko Chandra Primary Care Provider [phone] Reason for Visit * (Routine/Next Available) - Receiving Office to Obtain Authorization Specialty Diagnoses / Procedures Referred By Contac t Referred To Contact Procedures CT OUTSIDE IMAGES HEAD Imaging, External Referral ID Status Reason Start Date Expiration Date Visits Requested Visits Authorized [id number] Receiving Office to Obtain Authorization 06/05/2023 1 1 Encounter Details Date Type Department Care Team (Latest Contact Info) Description 11/27/2022 Hospital Encounter [facility] Secondary Reads [place] Discharge Disposition: Home [...] on filedocumented in this encounter Care Teams Branch Chief Relationship Specialty Start Date End Date Yumiko Chandra [address] [place] [address] PCP - General Internal Medicine - Primary Care 08/29/22 documented as of this encounter
== END 2024-09-15 14:47 | disposition home or self-care (01) ==
LOC: LBN 14:46
PROVIDERS: PCP Internal Medicine; Visit Provider Urology
DX: C61 Malignant neoplasm of prostate (principal)
CPT/HCPCS: 84153

== ENCOUNTER 2024-12-05 16:08 | Outpatient (REF) | payer MEDICARE, SELFPAY ==
--- OUTSIDE RECORDS SUMMARY | 2024-12-05 16:13 | XMS_ITS ---
Author Organization [facility] Address [address] [place] [address] Care Team Providers Care Cannon Fire Direction Specialist Name Role Phone Maritza Dubon Primary Care Provider Cheli Baker Unavailable [phone] Allergies No Known Allergies REASON FOR VISIT Prostate CA - PSA Medications Medication SIG (Take, Route, Frequency, Duration) Notes [...] Once a day for 30 day(s) Active Social History Tobacco Use: Social History Observation Description Date Details (start date - stop date) Former Smoker NA - NA Tobacco Use/Smoking: Question Answer Notes Are you a former smoker Section Notes: Retired palacios Vital Signs Blood pressure systolic 130 mm Hg 09/19/20 24 Blood pressure diastolic 74 mm Hg 024 Height 66.4 in 09/19/2024 Weight 131 lbs 09/19/2024 BMI 20.89 kg/m2 09/19/2024 Encounters Encounter Location Date Provider Diagnosis [facility] [address] [place] [address] 09/19/2024 Cheliromi Keith Malignant neoplasm o f prostate C61 and Benign prostatic hyperplasia with lower urinary tract symptoms N40.1 Assessments Encounter Date Diagnosis (ICD Code) Assessment Notes Treatment Notes Treatment Clinical Notes Section Notes 09/19/2024 Malignant neoplasm of prostate (ICD-10 - C61) The patient will have a repeat PSA in early December and I will call him with the results. If his PSA is starting to rise we may reinstitute hormone blockade. In the meantime I have encouraged him to get more aggressive daily exercise and continuing his vitamin D and calcium. 09/19/2024 Benign prostatic hyperplasia with lower urinary tract symptoms (ICD-10 - N40.1) The patient will have a repeat PSA in early December and I will call him with the results. If his PSA is starting to rise we may reinstitute hormone blockade. In the meantime I have encouraged him to get more aggressive daily exercise and continuing his vitamin D and calcium. Plan Of Treatment Next Appt Details Follow Up: 3 Months, Reason: By phone needs PSA prior Provider Name:Cheli Dhillon Reza amezquita, 12/20/2024 01:00:00 PM, [address] [place] [address], [phone], Progress Notes * KRISTIN CAODOB: (79 yo M)Acc No.[id number]:09/19/2024 Progress Notes Patient:?TITO LANDY Provider:?Jeanne Keith MD :1945???Age:79 Y???Sex:Male Alan e:09/19/2024 Address:[facility] [address] [facility] Pcp:Maritza Dubon Subjective: * Chief Complaints: * ???Prostate CA - PSA * HPI: ???Constitutional:? The patient returns in follow-up for his [place] 8 prostate cancer diagnosed a year and a half ago. His last hormone blockade injection was in May he has some fatigue the hot flashes over time have decreased and currently are not causing him any problems with sleeping, he is overall feeling well although continues to be fairly frail and have difficulty with daily exercise. His most recent PSA on September 15 was 1.0. He is taking vitamin D and calcium. At this point I would like to hold off on any hormone blockade and recheck his PSA in 3 months, this is intermittent therapy and might give him some relief from bone loss as well as some of the more complicating side effects such as fatigue. Although I have a feeling his fatigue is related mainly to his overall deconditioned state. * ROS:?All Other Systems:?Review of Systems (ROS)?See HPI for details. Medications, Medical History, Allergies, Social History, Surgical History, and ROS reviewed and updated with the patient today.? * Medical History:? * Surgical History:?Circumcisi on Tonsils Back Prostate Biopsy - [place] 8 03/2023 * Hospitalization/Major Diagno stic Procedure:?No Hospitalization History. * Family History:?Father: dece ased.?Mother: .? No prostate cancer in the immediate family. * Social History:?Tobacco Use:?Tobacco Use/Smoking?Are you a?former smoker ???Miscellaneous:?Housing: owns a home. ?Living with: spouse. ?Marital status: . ?Occupation: Retired. ???Retired palacios. * Medications:?TakingFlonase 5 0 MCG/DOSE Inhaler 1 spray in each nostril Nasally Once a day Sertraline HCl 100 MG Tablet 1 tablet Orally Once a day Allopurinol 100 MG Tablet 1 tablet Orally Once a day Omeprazole 20 MG Capsule Delayed Release 1 capsule 30 minutes before morning meal Orally Once a day Myrbetriq 25 MG Tablet Extended Release 24 Hour 1 tablet Orally Once a day Lupron Depot (3-Month) 22.5 MG Kit as directed Intramuscular Medication List reviewed and reconciled with the patientTaking Flonase 50 MCG/DOSE Inhaler 1 spray in each nostril Nasally Once a day Taking Sertraline HCl 100 MG Tablet 1 tablet Orally Once a day Taking Allopurinol 100 MG Tablet 1 tablet Orally Once a day Taking Omeprazole 20 MG Capsule Delayed Release 1 capsule 30 minutes before morning meal Orally Once a day Taking Myrbetriq 25 MG Tablet Extended Release 24 Hour 1 tablet Orally Once a day Taking Lupron Depot (3-Month) 22.5 MG Kit as directed Intramuscular Medication List reviewed and reconciled with the patient * Allergies:?N.K.D.A.no[Allerg ies Verified] Objective: * Vitals:?BP: 130/74 mm Hg, Wt : 131 lbs, BMI: 20.89 Index, Ht: 66.4 in, Ht-cm: 168.66 cm, Wt-k.42 kg. * Examination: ???General Examination: ?GENERAL APPEARANCE:? pleasant, in no acute distress.?SKIN:? normal, no rashes, no suspicious lesions, warm and dry.?LUNGS:? normal.?PSYCH:? alert, oriented.? Assessment: * Assessment: 1.?Malignant neoplasm of pro state - C61 (Primary)?2.?Benign prostatic hyperplasia with lower urinary tract symptoms - N40.1? The patient will have a repe at PSA in early December and I will call him with the results. If his PSA is starting to rise we may reinstitute hormone blockade. In the meantime I have encouraged him to get more aggressive daily exercise and continuing his vitamin D and calcium. Plan: * Treatment: * ??Immunizations:? ??Immunization record has be en reviewed and updated. * Procedure Codes:?83997 PVRG8 420 BMI<30 AND >=22 [id number] DOC MEDS VERIFIED W/PT OR [id number] FLU IMMUNIZE ORDER/[id number] Pneum vax admin 60+ * Preventive Medicine:? ??Counseling:?Care for Older Adults?Date of last completed Functional Status Assessment:?05/03/2024 ?Date of last Medication Review:?05/03/2024 ?Date of last Advance Care Planning:?05/03/2024 ?Fall Risk and Care Plan?Screening:?No falls in the past year ?Prostate Cancer Screening?Last done PSA?04/26/2024 * Follow Up:?3 Months (Reason: By phone needs PSA prior) * Images: * Sign off status: Completed true * Provider:?Jeanne Keith MD Date:?09/19/20 24 Generated for Abrami amisha/Jessica/eTransmitting on:?12/05/2024 04:12 PM EST History and Physical Notes * HPI (History of Present Illness) Category Sub-Category Detail Notes Category Not es Constitutional The patient r yoditurns in follow-up for his [place] 8 prostate cancer diagnosed a year and a half ago. His last hormone blockade injection was in May he has some fatigue the hot flashes over time have decreased and currently are not causing him any problems with sleeping, he is overall feeling well although continues to be fairly frail and have difficulty with daily exercise. His most recent PSA on September 15 was 1.0. He is taking vitamin D and calcium. At this point I would like to hold off on any hormone blockade and recheck his PSA in 3 months, this is intermittent therapy and might give him some relief from bone loss as well as some of the more complicating side effects such as fatigue. Although I have a feeling his fatigue is related mainly to his overall deconditioned state. Examination Category Sub-Category Detail Notes Category Not es General Examination GENERAL APPEARANCE: pleasant, in n o acute distress LUNGS: normal SKIN: normal, no rashes, n o suspicious lesions, warm and dry PSYCH: alert, oriented
--- OUTSIDE RECORDS SUMMARY | 2024-12-05 16:13 | XMS_ITS | Patient Health Record ---
Author Organization [facility] Address [address] [place] [address] Care Team Providers Care Palletiser Operator Name Role Phone Maritza Dubon Primary Care Provider UnavailCheli Pham Unavailable [phone] Allergies No Known Allergies Results Component Value Reference Range Notes PSA Diagnostic Reviewed date:06/27/2024 12:30:01 PM Interpretation:4.9 Performing Lab: Notes/Report: 4.9 PSA Diagnostic Reviewed date:01/26/2024 01:50:11 PM Interpretation:4.6 Performing Lab: Notes/Report: 4.6 PSA Diagnostic Reviewed date:09/27/2024 11:49:05 AM Interpretation:1.0 Performing Lab: Notes/Report: 1.0 Reason For Referral No Information Medications Medication SIG (Take, Route, Frequency, Duration) Notes Start Date End Date Status Flonase 50 MCG/DOSE 1 spray in each [...] a day for 30 days 09/08/2023 Active Immunizations Vaccine Route Administration Date Status Comme nts Pneumococcal polysaccharide PPV23 Unknown 02/01/2018 Ad ministered Influenza, high dose seasonal Unknown 12/05/2022 Admini stered Covid19 Unknown 01/02/2021 Administered Covid19 Unknown 01/30/2021 Administered Covid19 Unknown 09/12/2021 Administered Covid19 Unknown 02/26/2022 Administered Covid19 Unknown 12/05/2022 Administered Social History Tobacco Use: Social History Observation Description Date Details (start date - stop date) Former Smoker NA - NA Tobacco Use/Smoking: Question Answer Notes Are you a former smoker 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 Problems Problem Type SNOMED Code ICD Code Onset Dates Problem Status W/U Status Risk Notes Problem Malignant tumor of prostate (289195490) Malignant neoplasm of prostate (C61) Active confirmed Problem Essential hypertension (77892679) Essential (primary) hypertension (I10) Active confirmed Problem Urge incontinence of urine (35424560) Urge incontinence (N39.41) Active confirmed Problem Hematuria (12493305) Hematuria, unspecified (R31.9) Active confirmed Problem Retention of urine (384115971) Retention of urine, unspecified (R33.9) Active confirmed Problem Benign prostatic hyperplasia with outflow obstruction (275617111) Benign prostatic hyperplasia with lower urinary tract symptoms (N40.1) Active confirmed Problem Prostate specific antigen above reference range (237703555) Elevated prostate specific antigen [PSA] (R97.20) Active confirmed Vital Signs Blood pressure diastolic 74 mm Hg 09/19/2024 Height 66.4 in 09/19/2024 Blood pressure systolic 130 mm Hg 09/19/2024 Weight 131 lbs 09/19/2024 BMI 20.89 kg/m2 09/19/2024 Encounters Encounter Location Date Provider Diagnosis [facility] [address] [address] 05/03/2024 Cheli Keith Malignant neoplasm o f prostate C61 [facility] [address] [address] 09/19/2024 Cheli Keith Malignant neoplasm o f prostate C61 and Benign prostatic hyperplasia with lower urinary tract symptoms N40.1 [facility] [address] [address] 06/23/2024 [facility] [address] [place] [address] 08/25/2024 Cheli Keith Assessments Encounter Date Diagnosis (ICD Code) Assessment Notes Treatment Notes Treatment Clinical Notes Section Notes 05/03/2024 Malignant neoplasm of prostate (ICD-10 - C61) The patient will restart hormone blockade. He will take vitamin D 2000 units a day, and calcium 1000 mg daily and try to get some daily exercise. I will recheck his PSA in 6 weeks. Hopefully it is decreasing if not he will need to have a visit with oncology at [facility]. 09/19/2024 Malignant neoplasm of prostate (ICD-10 - [...] calcium. Plan Of Treatment Next Appt Details Provider Name:Cheliradha amezquita, 12/20/2024 01:00:00 PM, [address] [place] [address], [address], Insurance Providers Payer Name Payer Address Payer Phone Subscriber Number Group Number Insured Name Patient Relationship to Insured Coverage Start Date Coverage End Date Medicare of [place] - J14 [address] [place] [phone] [id number] Self - patient is the insured Medicaid of [place] [address] [place] [id number] Self - patient is the insured Medical (General) History Medical History History ICD Code Ventricular Bigeminy Ascending Aorta Dilation Hearing Loss Bilateral Weight Loss Gout CREST Syndrome Anemia Diverticulosis GERD Depression Hypogonadism [place] 8 Prostate CA - 03/2023 Surgical History Surgery Date(Month/Year) Circumcision Tonsils Back Prostate Biopsy - [place] 8 03/2023
--- OUTSIDE RECORDS SUMMARY | 2024-12-05 16:13 | XMS_ITS ---
Author Organization [facility] Address [address] [place] [address] Care Team Providers Care Screw Driver Operator Name Role Phone Maritza Dubon Primary Care Provider Cheli Baker [phone] Encounters Encounter Location Date Provider Diagnosis [facility] [address] [place] [address] 06/23/2024 Cheli Keith Plan Of Treatment Next Appt Details Provider Name:Cheli amezquita, 12/20/2024 01:00:00 PM, [address] [place], [address], Progress Notes * KRISTIN CAODOB: (78 yo M)Acc No.[id number]:06/23/2024 Patient:?KRISTIN CAO :1945???Age:78 Y???Sex:Male Address:[address] , [place], [address] * true * Date:? Generated for Printi amisha/Jessica/eTransmitting on:?12/05/2024 04:13 PM EST
--- OUTSIDE RECORDS SUMMARY | 2024-12-05 16:13 | XMS_ITS | Clinical Summary ---
Author Organization [facility] Address [facility] [place] [address] Care Team Providers Care Civil Design Technician Name Role Phone Justen Puckett DMD Primary Care Provider [phone] Medications Medication Sig Dispensed Refills Start Date [...] 06/10/2023 Active fluticasone propionate (Flonase) 50 mcg/actuation [place], Suspension SHAKE LIQUID AND USE 1 SPRAY [...] 1964 Tetanus/Diphtheria/Pertussis Vaccines (1 - Tdap) 07/23 Pneumoccocal Vaccine: 50+ (1 of 1 - PCV) 1996 Zoster vaccine (1 of 2) 1996 Advance Directive 2001 RSV Vaccine (1 - 1-dose 75+ series) 2021 Covid-19 Vaccine ( season) 2024 Influenza (Flu) vaccine (1 o f 1 - Influenza standard series) 07/10/2024 Care Teams Civil Design Technician Relationship Specialty Start Date End Date Justen Puckett DMD [address] [place], [place] [phone] PCP - General Dental Coal Sampler 07/25/23
--- OUTSIDE RECORDS SUMMARY | 2024-12-05 16:13 | XMS_ITS | Encounter Summary ---
[place] [address] Care Team Providers Care Horse Shoer Name Role Phone Justen Puckett DMD Primary Care Provider Reason for Referral * Consultation (Routine) - Closed Specialty Diagnoses / Procedures Referred By Ronny t Referred To Contact Rheumatology Diagnoses CRST syndrome Dysphagia, unspecified type Yumiko Chandra MD [address] [place] [address] [facility] Rheumatology [address] [place] [phone] Referral ID Status Reason Start Date Expiration Date V isits Requested Visits Authorized [id number] Closed Consult, Test & Treat PCP Updated and/or Approved 07/25/2023 07/24/2024 6 6 Encounter Details Date Type Department Care Team (Latest Contact Info) Description 07/25/2023 Transcribe Orders eDH Incoming Referrals [phone] Justen Puckett DMD [address] [facility] [address] [place], [place] [phone] CRST syndrome; Dysphagia, unspecified type Social History [...] type documented in this encounter Care Teams Horse Shoer Relationship Specialty Start Date End Date Italo LIZETH Campuzano [phone] [place] [address] PCP - General Dental Dry Wall Sprayer 07/25/23 documented as of this encounter
--- OUTSIDE RECORDS SUMMARY | 2024-12-05 16:13 | XMS_ITS ---
Author Organization [facility] Address [address] [place] [address] Care Team Providers Care Investment Officer Name Role Phone Maritza Dubon Primary Care Provider Cheli Baker [phone] Encounters Encounter Location Date Provider Diagnosis [facility] [address] [place] [address] 08/25/2024 Cheli Keith Plan Of Treatment Next Appt Details Provider Name:Cheli amezquita, 12/20/2024 01:00:00 PM, [address] [place], [address], Progress Notes * KRISTIN CAODOB: (79 yo M)Acc No.[id number]:08/25/2024 Patient:?KRISTIN CAO :1945???Age:79 Y???Sex:Male Address:[address] , [place], [address] * true * Date:? Generated for Printi amisha/Jessica/eTransmitting on:?12/05/2024 04:12 PM EST
--- OUTSIDE RECORDS SUMMARY | 2024-12-05 16:13 | XMS_ITS | Encounter Summary ---
Author Organization [facility] Address [facility] [place] [address] Care Team Providers Care Supervisor Metal Furniture Assembly Name Role Phone Justen Puckett DMD Primary Care Provider [phone] Reason for Visit * Consultation (Routine) - Closed Specialty Diagnoses / Procedures Referred By Ronny saldaña Referred To Contact Rheumatology Diagnoses CRST syndrome Dysphagia, unspecified type Yumiko Chandra MD [address] [place] [address] [facility] Rheumatology [address] [place] [phone] Referral ID Status Reason Start Date Expiration Date V isits Requested Visits Authorized [id number] Closed Consult, Test & Treat PCP Updated and/or Approved 07/25/2023 07/24/2024 6 6 Encounter Details Date Type Department Care Team (Late st Contact Info) Description 08/11/2023 10:00 AM EDT TH Visit (TeleHealth) [place] [address] Vel Arguello MD [facility] [place] [address] Scleroderma Social History Tobacco Use [...] weekly by VNA ([place] [facility]) and his blood pressures by his [...] mouth daily. fluticasone propionate (Flonase) 50 mcg/actuation [place], Suspension SHAKE LIQUID AND USE 1 SPRAY [...] sclerosis documented in this encounter Care Teams Supervisor Metal Furniture Assembly Relationship Specialty Start Date End Date Justen Puckett DMD [address] [place] [address] PCP - General Dental Class A Lineman 07/25/23 documented as of this encounter
--- OUTSIDE RECORDS SUMMARY | 2024-12-05 16:13 | XMS_ITS ---
Author Organization Unknown Address [address] [place] [phone] Phone Care Team Providers Care Yeast Fermentation Attendant Name Role Phone RERE FERRARO Attending Unavailable HOA Reyes Consulting Unavailable WILLIE Melendez Primary Unavailable Social History Type Status Start Date End Date Code Code Syst em Smoking History Former smoker 5197132 SNOMED CT Sex Male Assessment You had [...] Status Code Code System CREST SYNDROME active 97062849 SNOME D-CT HTN active 86977073 SNOMED-CT DEPRESSION active 03997732 SNOMED-CT GOUT active 41310536 SNOMED-CT Allergies and Adverse Reactions Allergy Substance Reaction Severity Start Date Concern Status Co de Code System No Known Drug Allergies Active 739228911 SNOMED-CT Plan of Treatment CT HEAD W/O CONTRAST 06/25/2023 X-RAY 05/26/2023 NM BONE SCAN WHOLE BODY 05/07/2023 US GUIDED NEEDLE BIOPSY 04/08/2023 Encounters Encounter Diagnosis Start Date Code Code Sys tem Other forms of angina pectoris 05/23/2022 SNOMED-CT Personal Care Team Section Performer Name Performer Role Active Date Inactive Da te
--- OUTSIDE RECORDS SUMMARY | 2024-12-05 16:15 | XMS_ITS ---
Author Organization Unknown Address [address] [place] [phone] Phone Care Team Providers Care Hot Stick Man Name Role Phone MARY MCHUGH Registered Nurse Unavailable LESIA Barker Attending Unavailable HOA Reyes Primary Unavailable UNLISTED PROVIDER - REQUESTED Xhandoff Un available Results CT HEAD WO CONTRAST - Comple kelton: 11/27/2022 13:06 LOINC: [facility] [place], [place] [address] PACS CUTTER GRIND TOOL TECHNICIAN REPORT Patient Name: ANN CAO MRN: Sex: : Age: [id number] M 1945 77 Account: Accession: Admit: StayType: [id number] 11/27/2022 E/R Ordered: Order ID: Submitted: Ordering Provider: 11/27/2022 12:47 [id number] KIKE BECKMAN Completed: Technologist: Resulted: 11/27/2022 13:06 SLG 11/27/2022 13:17 Study Description: CT HEAD WO CONTRAST Study Reason: trauma Technique: Imaging Protocol: Axial computed tomography images with coronal and sagittal reformatted images were created and reviewed. Comparison: None. FINDINGS: Ventricles and Extra axial spaces: Normal in size and morphology for the patient's age. Hemorrhage: None. Cerebral parenchyma: Normal. [place] of [place]: Unremarkable. Midline shift: None. Brainstem/Cerebellum: [...] 3V RT* - Completed: 11/27/2022 15:07 LOINC: [facility] [place], [place] [address] PACS CUTTER GRIND TOOL TECHNICIAN REPORT Patient Name: ANN CAO MRN: Sex: : Age: [id number] M 1945 Account: Accession: Admit: StayType: [id number] 11/27/2022 E/R Ordered: Order ID: Submitted: Ordering Provider: 11/27/2022 12:47 [id number] KIKE BECKMAN Completed: Technologist: Resulted: 11/27/2022 12:47 [...] Code Syst em Smoking History Former smoker 2479446 SNOMED CT Sex Male Vital Signs Vital Sign Value Unit [place] Value [place] Unit Date/Time Recent/Initial? Code Code System Body Mass Index 20.36 kg/m2 11/27/2022 12:06 Initial 17299 -5 LOINC Systolic Blood Pressure 186 mm[Hg] [...] O2 Saturation 97 % 2022 15:39 Initial 72199 -5 LOINC Pulse 72.0 /min 11/27/2022 15:39 Most Recent 8867- 4 LOINC Pulse 72.0 /min 11/27/2022 12:06 Initial 8867- 4 LOINC Respiration 18 /min 11/27/19 15:39 Initial 9279- 1 LOINC Temperature 37.2 Irma 99.0 F 11/27/19 12:06 Initial 8310- 5 LOINC Weight 58.97 kg 130.00 lbs 11/27/2022 12:06 Initial 84636 -7 LOINC Assessment You had the following problems:CREST SYNDROMEHTNDEPRESSIONGOUT Hospital Discharge Instructions Should you have any questions prior to discharge, please contact a member of your healthcare team. If you have left the hospital and have any questions, please contact your primary care physician. Reason For Referral No Data Found Problems Problem Start Date Resolved Date Status Code Code System CREST SYNDROME active 46254943 SNOME D-CT HTN active 33583189 SNOMED-CT DEPRESSION active 92226022 SNOMED-CT GOUT active 80285174 SNOMED-CT Allergies and Adverse Reactions Allergy Substance Reaction Severity Start Date Concern Status Co de Code System No Known Drug Allergies Active 335624576 SNOMED-CT Plan of Treatment CT HEAD W/O [...]
--- OUTSIDE RECORDS SUMMARY | 2024-12-05 16:18 | XMS_ITS ---
Author Organization Unknown Address [address] [place] [phone] Phone Care Team Providers Care New Car Sales Manager Name Role Phone SUMAYA Membreno Attending Unavailable HOA Reyes Primary Unavailable Social History Type Status Start Date End Date Code Code Syst em Smoking History Former smoker 6463174 SNOMED CT Sex Male Assessment You had [...] Status Code Code System CREST SYNDROME active 05843264 SNOME D-CT HTN active 66589965 SNOMED-CT DEPRESSION active 94054606 SNOMED-CT GOUT active 77736095 SNOMED-CT Allergies and Adverse Reactions Allergy Substance Reaction Severity Start Date Concern Status Co de Code System No Known Drug Allergies Active 845878344 SNOMED-CT Plan of Treatment CT HEAD W/O CONTRAST 06/25/2023 X-RAY 05/26/2023 NM BONE SCAN WHOLE BODY 05/07/2023 US GUIDED NEEDLE BIOPSY 04/08/2023 Encounters Encounter Diagnosis Start Date Code Code Sys tem Encounter for antineoplastic chemotherapy 07/03/2023 SNOMED-CT Personal Care Team Section Performer Name Performer Role Active Date Inactive Da te
--- OUTSIDE RECORDS SUMMARY | 2024-12-05 16:18 | XMS_ITS ---
Author Organization Unknown Address [address] [place] [phone] Phone Care Team Providers Care Bit Gatherer Name Role Phone GARRET Aguila Attending Unavailable HOA Reyes Primary Unavailable Results CT HEAD WO CONTRAST - Comple kelton: 06/04/2023 15:37 LOINC: [facility] RADIOLOGY [place], [place] [address] PACS SITE PLANNER REPORT Patient Name: ANN CAO MRN: Sex: : Age: [id number] M [id number] Account: Accession: Admit: StayType: [id number] 06/04/2023 O/P Ordered: Order ID: Submitted: Ordering Provider: 06/04/2023 15:08 [id number] VLADIMIR MARTINEZ Completed: Technologist: Resulted: 06/04/2023 15:37 [...] most consistent with small vessel ischemic disease. [place] of [place]: Unremarkable. Midline shift: None. Brainstem/Cerebellum: [...] Code Syst em Smoking History Former smoker 3852378 SNOMED CT Sex Male Assessment You had [...] Status Code Code System CREST SYNDROME active 95253622 SNOME D-CT HTN active 98228910 SNOMED-CT DEPRESSION active 29181735 SNOMED-CT GOUT active 90024176 SNOMED-CT Allergies and Adverse Reactions Allergy Substance Reaction Severity Start Date Concern Status Co de Code System No Known Drug Allergies Active 406467151 SNOMED-CT Plan of Treatment CT HEAD W/O CONTRAST 06/25/2023 X-RAY 05/26/2023 NM BONE SCAN WHOLE BODY 05/07/2023 US GUIDED NEEDLE BIOPSY 04/08/2023 Encounters Encounter Diagnosis Start Date Code Code Sys tem Dizziness 06/04/2023 765576193 SNOMED-CT Personal Care Team Section Performer Name Performer Role Active Date Inactive Da te
--- OUTSIDE RECORDS SUMMARY | 2024-12-05 16:18 | XMS_ITS ---
Author Organization Unknown Address [address] [place] [phone] Phone Care Team Providers Care Pond Scaler Name Role Phone GARRET Aguila Attending Unavailable HOA Reyes Primary Unavailable Results CT HEAD WO CONTRAST - Comple kelton: 06/25/2023 14:47 LOINC: [facility] RADIOLOG[facility] [place], [place] [address] PACS HEALTHCARE PROF REPORT Patient Name: ANN CAO MRN: Sex: : Age: [id number] M [id number] Account: Accession: Admit: StayType: [id number] 06/25/2023 O/P Ordered: Order ID: Submitted: Ordering Provider: 06/25/2023 14:05 [id number] KT VLADIMIR COMBS Completed: Technologist: Resulted: 06/25/2023 [...] Code Syst em Smoking History Former smoker 5656510 SNOMED CT Sex Male Assessment You had [...] Status Code Code System CREST SYNDROME active 82023364 SNOME D-CT HTN active 16572405 SNOMED-CT DEPRESSION active 52128775 SNOMED-CT GOUT active 22748246 SNOMED-CT Allergies and Adverse Reactions Allergy Substance Reaction Severity Start Date Concern Status Co de Code System No Known Drug Allergies Active 238264040 SNOMED-CT Plan of Treatment CT HEAD W/O CONTRAST 06/25/2023 X-RAY 05/26/2023 NM BONE SCAN WHOLE BODY 05/07/2023 US GUIDED NEEDLE BIOPSY 04/08/2023 Encounters Encounter Diagnosis Start Date Code Code Sys tem Dizziness and giddiness 06/25/2023 SNOM ED-CT Personal Care Team Section Performer Name Performer Role Active Date Inactive Da te
--- OUTSIDE RECORDS SUMMARY | 2024-12-05 16:20 | XMS_ITS | Encounter Summary ---
Author Organization [facility] Address [address] [place] [address] Care Team Providers Care Journal Box Inspector Name Role Phone Yumiko Chandra Primary Care Provider [phone] Reason for Visit * (Routine/Next Available) - Receiving Office to Obtain Authorization Specialty Diagnoses / Procedures Referred By Contac t Referred To Contact Procedures CT OUTSIDE IMAGES CHEST Imaging, External Referral ID Status Reason Start Date Expiration Date Visits Requested Visits Authorized [id number] Receiving Office to Obtain Authorization 06/05/2023 1 1 Encounter Details Date Type Department Care Team (Latest Contact Info) Description 05/30/2023 - 05/30/2023 0:04 EDT Hospital Encounter [facility] Secondary Reads [place] Discharge Disposition: Home or Self Care Social History Tobacco Use Types Packs/Day Years Used Date Smoking Tobacco: Never Assessed Sex and Gender Information Value Date Recorded Sex Assigned at Not on file Legal Sex Male 17:37 EST Gender Identity Not on file Sexual Orientation [...] 14:39 EDT This is a non-reportable exam. us External Imaging IMG OTHER IMAGING ORDERABLES Fi nal Result documented in this encounter Visit Diagnoses Not on filedocumented in this encounter Care Teams Journal Box Inspector Relationship Specialty Start Date End Date Yumiko Chandra [address] [place] [address] PCP - General Internal Medicine - Primary Care 08/29/22 documented as of this encounter
--- OUTSIDE RECORDS SUMMARY | 2024-12-05 16:20 | XMS_ITS | Encounter Summary ---
Author Organization [facility] Address [address] [place] [address] Care Team Providers Care Chain Link Fence Installer Name Role Phone Yumiko Chandra Primary Care Provider [phone] Reason for Visit * (Routine/Next Available) - Receiving Office to Obtain Authorization Specialty Diagnoses / Procedures Referred By Contac t Referred To Contact Procedures CT OUTSIDE IMAGES HEAD Imaging, External Referral ID Status Reason Start Date Expiration Date Visits Requested Visits Authorized [id number] Receiving Office to Obtain Authorization 06/05/2023 1 1 Encounter Details Date Type Department Care Team (Latest Contact Info) Description 06/04/2023 - 06/04/2023 23:59 EDT Hospital Encounter [facility] Secondary Reads [place] Discharge Disposition: Home or [...] 15:31 EDT This is a non-reportable exam. us External Imaging IMG OTHER IMAGING ORDERABLES Fi nal Result documented in this encounter Visit Diagnoses Not on filedocumented in this encounter Care Teams Chain Link Fence Installer Relationship Specialty Start Date End Date Yumiko Chandra [address] [place] [address] PCP - General Internal Medicine - Primary Care 08/29/22 documented as of this encounter
--- OUTSIDE RECORDS SUMMARY | 2024-12-05 16:20 | XMS_ITS | Encounter Summary ---
Author Organization [facility] Address [address] [place] [address] Care Team Providers Care Receipt And Report Clerk Name Role Phone Yumiko Chandra Primary Care Provider [phone] Encounter Details Date Type Department Care Team (Late st Contact Info) Description 10/25/2020 Lab Requisition [facility] Pathology & Laboratory Medicine - [facility] [address] [place] [address] Outr Resulting Lab, Provider Social History Tobacco [...] 0.0 - 6.5 ng/mL 10/25/2020 20:33 EST [facility] Blood VENOUS BLOOD / Unknown 10/24/2020 12:27 EST 10/25/2020 17:11 EST Narrative [facility] - 10/25/2020 20:33 EST NOTE: Serum PSA concentration should not be interpreted as absolute evidence for the presence or absence of malignant disease. Assayed on Siemens ADVIA Centaur XPT using chemiluminescent technology.??Values obtained by using different assay methods cannot be used interchangeably. us Provider Outr Resulting Lab CHEMISTRY & BLOOD GA S ORDERABLES Final Result [facility] [address] [place] [address] documented in this encounter Visit Diagnoses Not on filedocumented in this encounter Care Teams Receipt And Report Clerk Relationship Specialty Start Date End Date Yumiko Chandra [address] [place] [address] PCP - General Internal Medicine - Primary Care 08/29/22 documented as of this encounter
--- OUTSIDE RECORDS SUMMARY | 2024-12-05 16:20 | XMS_ITS | Encounter Summary ---
Author Organization [facility] Address [address] [place] [address] Care Team Providers Care Varnisher Name Role Phone Yumiko Chandra Primary Care Provider [phone] Encounter Details Date Type Department Care Team (Late st Contact Info) Description 06/05/2023 Documentation Visit [facility] Radiation Oncology - [facility] [address] [place], [place] [id number] Jade Swift, RN Social History Tobacco Use Types Packs/Day Years Used Date Smoking Tobacco: Never Assessed Sex and Gender Information Value Date Recorded Sex Assigned at Not on file Legal Sex Male 17:37 EST Gender Identity Not on file Sexual Orientation Not on file documented as of this encounter Progress Notes * Jade Swift, RN - 06/05/2023 1422 EDT Images from the original note were not included. Nursing Initial Assessment Date of Service: 06.05.2023 Referring Physicians: Dr. Keith Vitals: See rooming Pain: 0 Review Of Systems: [...] on filedocumented in this encounter Care Teams Varnisher Relationship Specialty Start Date End Date Yumiko Chandra [address] [place] [address] PCP - General Internal Medicine - Primary Care 08/29/22 documented as of this encounter
--- OUTSIDE RECORDS SUMMARY | 2024-12-05 16:20 | XMS_ITS | Encounter Summary ---
Author Organization [facility] Address [address] [place] [address] Care Team Providers Care Pump Servicer Name Role Phone Yumiko Chandra Primary Care Provider [phone] Encounter Details Date Type Department Care Team (Late st Contact Info) Description 09/15/2024 Lab Requisition [facility] Pathology & Laboratory Medicine - [facility] [address] [place] [address] Outr Resulting Lab, Provider Social History Tobacco [...] Associated Diagnosis Comments PSA TOTAL, DIAGNOSTIC Routine 09/15/2024 11:00 EST documented in this encounter Results * PSA TOTAL, DIAGNOSTIC (09/15/2024 11:00 EST) PSA 1.0 <=6.5 ng/mL 09/15/2024 22:14 EST [facility] Blood VENOUS BLOOD / Unknown 09/15/2024 11:00 EST 09/15/2024 21:25 EST Narrative [facility] - 09/15/2024 22:14 EST NOTE: Serum PSA concentration should not be interpreted as absolute evidence for the presence or absence of malignant disease. Assayed on Siemens ADVIA Centaur XPT using chemiluminescent technology.??Values obtained by using different assay methods cannot be used interchangeably. us Provider Outr Resulting Lab CHEMISTRY & BLOOD GA S ORDERABLES Final Result [facility] [address] [place], [place] [address] documented in this encounter Visit Diagnoses Not on filedocumented in this encounter Care Teams Pump Servicer Relationship Specialty Start Date End Date Yumiko Chandra [address] [place] [address] PCP - General Internal Medicine - Primary Care 08/29/22 documented as of this encounter
--- OUTSIDE RECORDS SUMMARY | 2024-12-05 16:20 | XMS_ITS | Encounter Summary ---
Author Organization [facility] Address [address] [place] [address] Care Team Providers Care Cost Reduction Engineer Name Role Phone Yumiko Chandra Primary Care Provider [phone] Reason for Referral * Radiology Services (Routine/Next Available) - Authorization Not Required Specialty Diagnoses / Procedures Referred By Contac t Referred To Contact Radiology Diagnoses Thoracic aortic ectasia (HCC-CMS) Procedures MR ANGIO CHEST WO CONTRAST MR ANGIO CHEST W WO CONTRAST Yumiko Chandra [address] [place] [address] Phone: tel: fax: [facility] Referral ID Status Reason Start Date Expiration Date Visits Requested Visits Authorized [id number] Authorization Not Required 08/17/2023 1 1 Reason for Visit * Radiology Services (Routine/Next Available) - Authorization Not Required Specialty Diagnoses / Procedures Referred By Contac t Referred To Contact Radiology Diagnoses Thoracic aortic ectasia (HCC-CMS) Procedures MR ANGIO CHEST WO CONTRAST MR ANGIO CHEST W WO CONTRAST Yumiko Chandra [address] [place] [address] Phone: tel: fax: [facility] Referral ID Status Reason Start Date Expiration Date Visits Requested Visits Authorized [id number] Authorization Not Required 08/17/2023 1 1 Encounter Details Date Type Department Care Team (Latest Contact Info) Description 10/14/2023 13:27 EST - 10/14/2023 23:59 EST [facility] - [address] [address] Thoracic aortic ectasia (HCC-CMS) Discharge Disposition: Home or Self Care Social History Tobacco Use Types Packs/Day Years Used Date Smoking Tobacco: Never Assessed Sex and Gender Information Value Date Recorded Sex Assigned at Not on file Legal Sex Male 17:37 EST Gender Identity Not on file Sexual Orientation Not on file documented as of this encounter Medications at Time of Discharge allopurinoL (ZYLOPRIM) 100 mg tablet Take 1 [...] follow-up is not felt to be necessary. [id number] Narrative 10/14/2023 15:25 EST MR ANGIO CHEST [...] follow-up is not felt to be necessary. [id number] Yumiko Chandra [facility] MRI ORDERABLES Final Result documented in this encounter Visit Diagnoses Diagnosis Thoracic aortic ectasia (HCC-CMS) Thoracic aortic ectasia documented in this encounter Care Teams Cost Reduction Engineer Relationship Specialty Start Date End Date Yumiko Chandra [address] [facility] [place] [place] [address] PCP - General Internal Medicine - Primary Care 08/29/22 documented as of this encounter
--- OUTSIDE RECORDS SUMMARY | 2024-12-05 16:20 | XMS_ITS | Encounter Summary ---
Author Organization [facility] Address [address] [place] [address] Care Team Providers Care Wire Drawing Setter Name Role Phone Yumiko Chandra Primary Care Provider [phone] Encounter Details Date Type Department Care Team (Late st Contact Info) Description 01/19/2024 Lab Requisition [facility] Pathology & Laboratory Medicine - [facility] [address] [place] [address] Outr Resulting Lab, Provider Social History Tobacco [...] PSA 4.6 <=6.5 ng/mL 01/19/2024 22:01 EDT [facility] Blood VENOUS BLOOD / Unknown 01/19/2024 11:00 EDT 01/19/2024 21:20 EDT Narrative [facility] - 01/19/2024 22:01 EDT NOTE: Serum PSA concentration should not be interpreted as absolute evidence for the presence or absence of malignant disease. Assayed on Siemens ADVIA Centaur XPT using chemiluminescent technology.??Values obtained by using different assay methods cannot be used interchangeably. us Provider Outr Resulting Lab CHEMISTRY & BLOOD GA S ORDERABLES Final Result [facility] [address] [place], [place] [id number] documented in this encounter Visit Diagnoses Not on filedocumented in this encounter Care Teams Wire Drawing Setter Relationship Specialty Start Date End Date Yumiko Chandra [address] [place] [address] PCP - General Internal Medicine - Primary Care 08/29/22 documented as of this encounter
--- OUTSIDE RECORDS SUMMARY | 2024-12-05 16:20 | XMS_ITS | Encounter Summary ---
Author Organization [facility] Address [address] [place] [address] Care Team Providers Care Blueprint Cutter Name Role Phone Yumiko Chandra Primary Care Provider [phone] Reason for Referral * Radiology Services (Routine/Next Available) - Receiving Office to Obtain Authorization Specialty Diagnoses / Procedures Referred By Contac t Referred To Contact Radiology Diagnoses Thoracic aortic ectasia (HCC-CMS) Procedures MR ANGIO CHEST WO CONTRAST MR ANGIO CHEST W WO CONTRAST Yumiko Chandra [address] [place] [address] Phone: tel: fax: [facility] Referral ID Status Reason Start Date Expiration Date Visits Requested Visits Authorized [id number] Receiving Office to Obtain Authorization 08/12/2022 1 1 Reason for Visit * Radiology Services (Routine/Next Available) - Receiving Office to Obtain Authorization Specialty Diagnoses / Procedures Referred By Contac t Referred To Contact Radiology Diagnoses Thoracic aortic ectasia (HCC-CMS) Procedures MR ANGIO CHEST WO CONTRAST MR ANGIO CHEST W WO CONTRAST Yumiko Chandra [address] [place] [address] Phone: tel: fax: [facility] Referral ID Status Reason Start Date Expiration Date Visits Requested Visits Authorized [id number] Receiving Office to Obtain Authorization 08/12/2022 1 1 Encounter Details Date Type Department Care Team (Latest Contact Info) Description 10/07/2022 8:30 EST - 10/07/2022 23:59 EST [facility] - [address] [address] Thoracic aortic ectasia (HCC-CMS) Discharge Disposition: Home [...] large stone in the gallbladder. Yumiko Chandra [facility] [place] Final Result documented in this encounter Visit Diagnoses Diagnosis Thoracic aortic ectasia (HCC-CMS) Thoracic aortic ectasia documented in this encounter Care Teams Blueprint Cutter Relationship Specialty Start Date End Date Yumiko Chandra [address] [facility] [place] [address] PCP - General Internal Medicine - Primary Care 08/29/22 documented as of this encounter
--- OUTSIDE RECORDS SUMMARY | 2024-12-05 16:20 | XMS_ITS | Encounter Summary ---
Author Organization [facility] Address [address] [place] [address] Care Team Providers Care Valuation Consultant Name Role Phone Unavailable Primary Care Provider Unavailabl e Encounter Details Date Type Department Care Team (Late st Contact Info) Description 08/12/2022 Orders Only [facility] Radiology - [facility] [place] [address] [place] [address] Barrett Hooks MD [address] [place] [address] Social History Tobacco Use Types Packs/Day Years [...]
--- OUTSIDE RECORDS SUMMARY | 2024-12-05 16:20 | XMS_ITS | Encounter Summary ---
Author Organization [facility] Address [address] [place] [address] Care Team Providers Care Tyre Fitter Name Role Phone Yumiko Chandra Primary Care Provider [phone] Reason for Visit * (Routine/Next Available) - Receiving Office to Obtain Authorization Specialty Diagnoses / Procedures Referred By Contac t Referred To Contact Procedures NM OUTSIDE IMAGES Imaging, External Referral ID Status Reason Start Date Expiration Date Visits Requested Visits Authorized [id number] Receiving Office to Obtain Authorization 06/05/2023 1 1 Encounter Details Date Type Department Care Team (Latest Contact Info) Description 05/07/2023 - 05/07/2023 23:59 EDT Hospital Encounter [facility] Secondary Reads [place] Discharge Disposition: Home [...] 15:32 EDT This is a non-reportable exam. us External Imaging IMG OTHER IMAGING ORDERABLES Fi nal Result documented in this encounter Visit Diagnoses Not on filedocumented in this encounter Care Teams Tyre Fitter Relationship Specialty Start Date End Date Yumiko Chandra [address] [place] [address] PCP - General Internal Medicine - Primary Care 08/29/22 documented as of this encounter
--- OUTSIDE RECORDS SUMMARY | 2024-12-05 16:20 | XMS_ITS | Encounter Summary ---
Author Organization [facility] Address [address] [place] [address] Care Team Providers Care Construction Coordinator Name Role Phone Yumiko Chandra Primary Care Provider [phone] Encounter Details Date Type Department Care Team (Late st Contact Info) Description 02/04/2023 Lab Requisition [facility] Pathology & Laboratory Medicine - [facility] [address] [place] [address] Outr Resulting Lab, Provider Social History Tobacco [...] PSA 25.5(H) <=6.5 ng/mL 02/04/2023 18:24 EDT [facility] Blood VENOUS BLOOD / Unknown 02/03/2023 11:55 EDT 02/04/2023 17:15 EDT Narrative [facility] - 02/04/2023 18:24 EDT NOTE: Serum PSA concentration should not be interpreted as absolute evidence for the presence or absence of malignant disease. Assayed on Siemens ADVIA Centaur XPT using chemiluminescent technology.??Values obtained by using different assay methods cannot be used interchangeably. us Provider Outr Resulting Lab CHEMISTRY & BLOOD GA S ORDERABLES Final Result [facility] [address] [place] [address] documented in this encounter Visit Diagnoses Not on filedocumented in this encounter Care Teams Construction Coordinator Relationship Specialty Start Date End Date Yumiko Chandra [address] [place] [address] PCP - General Internal Medicine - Primary Care 08/29/22 documented as of this encounter
--- OUTSIDE RECORDS SUMMARY | 2024-12-05 16:20 | XMS_ITS | Referral Summary ---
Author Organization [facility] Address [address] [place] [address] Care Team Providers Care Weigher Bulker Name Role Phone KonstantingloriaYumiko Primary Care Provider [phone] Encounters Date Type Department Care Team Description 09/15/2024 Lab Requisition [facility] Pathology & Laboratory Medicine - [facility] [address] [place] [address] Outr Resulting Lab, Provider from Last 3 Months Allergies No known active allergies Medications allopurinoL (ZYLOPRIM) 100 mg tablet Take 1 [...] PSA TOTAL, DIAGNOSTIC Routine 09/15/2024 11:00 EST from Last 3 Months Results * PSA TOTAL, DIAGNOSTIC (09/15/2024 11:00 EST) PSA 1.0 <=6.5 ng/mL 09/15/2024 22:14 EST [facility] Blood VENOUS BLOOD / Unknown 09/15/2024 11:00 EST 09/15/2024 21:25 EST Narrative [facility] - 09/15/2024 22:14 EST NOTE: Serum PSA concentration should not be interpreted as absolute evidence for the presence or absence of malignant disease. Assayed on Siemens iPerceptionsaur XPT using chemiluminescent technology.??Values obtained by using different assay methods cannot be used interchangeably. us Provider Outr Resulting Lab CHEMISTRY & BLOOD GA S ORDERABLES Final Result [facility] [address] [place] [address] from Last 3 Months Insurance [place] Care Teams Weigher Bulker Relationship Specialty Start Date End Date Yumiko Chandra [address] [place] [address] PCP - General Internal Medicine - Primary Care 08/29/22
--- OUTSIDE RECORDS SUMMARY | 2024-12-05 16:20 | XMS_ITS | Encounter Summary ---
Author Organization [facility] Address [address] [place] [address] Care Team Providers Care Second Mate Name Role Phone Yumiko Chandra Primary Care Provider [phone] Reason for Visit * (Routine/Next Available) - Receiving Office to Obtain Authorization Specialty Diagnoses / Procedures Referred By Contac t Referred To Contact Procedures XR OUTSIDE IMAGES PELVIS Imaging, External Referral ID Status Reason Start Date Expiration Date Visits Requested Visits Authorized [id number] Receiving Office to Obtain Authorization 06/05/2023 1 1 Encounter Details Date Type Department Care Team (Latest Contact Info) Description 05/21/2023 - 05/21/2023 23:59 EDT Hospital Encounter [facility] Secondary Reads [place] Discharge Disposition: Home [...] on filedocumented in this encounter Care Teams Second Mate Relationship Specialty Start Date End Date Yumiko Chandra [address] [place] [address] PCP - General Internal Medicine - Primary Care 08/29/22 documented as of this encounter
--- OUTSIDE RECORDS SUMMARY | 2024-12-05 16:20 | XMS_ITS ---
Author Organization Unknown Address [address] [place] [phone] Phone Care Team Providers Care Supervisor Toy Assembly Name Role Phone SUMAYA Membreno Attending Unavailable HOA Reyes Primary Unavailable Social History Type Status Start Date End Date Code Code Syst em Smoking History Former smoker 3210937 SNOMED CT Sex Male Assessment You had [...] Status Code Code System CREST SYNDROME active 20687102 SNOME D-CT HTN active 04539844 SNOMED-CT DEPRESSION active 29583407 SNOMED-CT GOUT active 39298225 SNOMED-CT Allergies and Adverse Reactions Allergy Substance Reaction Severity Start Date Concern Status Co de Code System No Known Drug Allergies Active 822477906 SNOMED-CT Plan of Treatment CT HEAD W/O CONTRAST 06/25/2023 X-RAY 05/26/2023 NM BONE SCAN WHOLE BODY 05/07/2023 US GUIDED NEEDLE BIOPSY 04/08/2023 Encounters Encounter Diagnosis Start Date Code Code Sys tem Encounter for antineoplastic chemotherapy 05/10/2024 SNOMED-CT Personal Care Team Section Performer Name Performer Role Active Date Inactive Da te
--- OUTSIDE RECORDS SUMMARY | 2024-12-05 16:20 | XMS_ITS | Encounter Summary ---
Author Organization [facility] Address [address] [place] [address] Care Team Providers Care Wood Hacker Name Role Phone Yumiko Chandra Primary Care Provider [phone] Encounter Details Date Type Department Care Team (Late st Contact Info) Description 06/08/2024 Lab Requisition [facility] Pathology & Laboratory Medicine - [facility] [address] [place] [address] Outr Resulting Lab, Provider Social History Tobacco [...] PSA 4.9 <=6.5 ng/mL 06/08/2024 18:11 EDT [facility] Blood VENOUS BLOOD / Unknown 06/07/2024 14:55 EDT 06/08/2024 16:41 EDT Narrative [facility] - 06/08/2024 18:11 EDT NOTE: Serum PSA concentration should not be interpreted as absolute evidence for the presence or absence of malignant disease. Assayed on Siemens ADVIA Centaur XPT using chemiluminescent technology.??Values obtained by using different assay methods cannot be used interchangeably. us Provider Outr Resulting Lab CHEMISTRY & BLOOD GA S ORDERABLES Final Result [facility] [address] [place], [place] [id number] documented in this encounter Visit Diagnoses Not on filedocumented in this encounter Care Teams Wood Hacker Relationship Specialty Start Date End Date Yumiko Chandra [address] [place] [address] PCP - General Internal Medicine - Primary Care 08/29/22 documented as of this encounter
--- OUTSIDE RECORDS SUMMARY | 2024-12-05 16:20 | XMS_ITS | Encounter Summary ---
Author Organization [facility] Address [address] [place] [address] Care Team Providers Care Salon Leader Name Role Phone KonstantingloriaYumiko Primary Care Provider [phone] Reason for Visit * Reason Comments Prostate Cancer Encounter Details Date Type Department Care Team (Latest Contact Info) Description 06/05/2023 13:30 EDT Initial consult [facility] [place] [address] [place] [address] Duc Dalal MD [address] [place] [id number] Malignant neoplasm of prostate (HCC-CMS) (Primary [...] in this encounter Ordered Prescriptions Prescription Sig Dispense Quantity Refills Last Filled Start Date End Date bicalutamide (CASODEX) 50 mg tablet Take 1 [...] patient. IMPRESSION: Adenocarcinoma of the prostate gland Janki 4+4 = 8 involving all biopsies, PSA [...] 7 and the others were positive for Satanta 8 carcinoma. Patient underwent a bone scan which showed the possibility of a left inferior pubic ramus lesion compatible with metastatic disease. No biopsy has been done of this bony site however with his PSA being so elevated with pain in this location and with high risk prostate carcinoma it is likely that this is metastatic disease. RADIOLOGY: Bone scan done at [facility] 05/07/2023 Degenerative changes in both shoulders there is increased uptake in the contiguous right ribs consistent with recent rib fractures there is a focus of radiotracer uptake involving the left inferior pubic ramus. The bony metastatic deposit could not be excluded. CT scan of the chest done at [facility] 05/30/2023 Pulmonary parenchyma shows 6 mm nodule [...] 10/24/20 6.7 02/03/23 25.5 Pathology done at [facility] 04/08/2023 prostate right base Janki 8 2 cores +70% tissue involved with tumor Right mid Janki score 8 1 core positive out of 1 percentage of prostate tissue involved 90% Right apex prostate adenocarcinoma Satanta 8 1 core +10% of tissue involved Left base prostate adenocarcinoma Janki 4+32 cores +75% of tissue involved Left mid Janki a 1 core +70% of tissue Left apex prostate adenocarcinoma Satanta 8 1 core +95% involvement PHYSICAL EXAM: [...] Diagnoses Diagnosis Malignant neoplasm of prostate [facility] Primary Malignant neoplasm of prostate documented in this encounter Historical Medications * This list may reflect changes made after this encounter. sertraline (ZOLOFT) 25 mg tablet Take 1 Tablet by mouth daily. omeprazole (PRILOSEC) 20 mg capsule Take 1 Capsule by mouth daily. allopurinoL (ZYLOPRIM) 100 mg tablet Take 1 Tablet by mouth daily. added in this encounter Care Teams Salon Leader Relationship Specialty Start Date End Date Yumiko Chandra [address] [place] [address] PCP - General Internal Medicine - Primary Care 08/29/22 documented as of this encounter
--- OUTSIDE RECORDS SUMMARY | 2024-12-05 16:20 | XMS_ITS | Encounter Summary ---
Author Organization [facility] Address [address] [place] [address] Care Team Providers Care Sales Enablement Lead Name Role Phone Yumiko Chandra Primary Care Provider [phone] Encounter Details Date Type Department Care Team (Late st Contact Info) Description 04/26/2024 Lab Requisition [facility] Pathology & Laboratory Medicine - [facility] [address] [place] [address] Outr Resulting Lab, Provider Social History Tobacco [...] PSA 9.8(H) <=6.5 ng/mL 04/26/2024 18:48 EDT [facility] Blood VENOUS BLOOD / Unknown 04/25/2024 14:30 EDT 04/26/2024 17:03 EDT Narrative [facility] - 04/26/2024 18:48 EDT NOTE: Serum PSA concentration should not be interpreted as absolute evidence for the presence or absence of malignant disease. Assayed on Siemens ADVIA Centaur XPT using chemiluminescent technology.??Values obtained by using different assay methods cannot be used interchangeably. us Provider Outr Resulting Lab CHEMISTRY & BLOOD GA S ORDERABLES Final Result [facility] [address] [place] [address] documented in this encounter Visit Diagnoses Not on filedocumented in this encounter Care Teams Sales Enablement Lead Relationship Specialty Start Date End Date Yumiko Chandra [address] [place] [address] PCP - General Internal Medicine - Primary Care 08/29/22 documented as of this encounter
--- OUTSIDE RECORDS SUMMARY | 2024-12-05 16:20 | XMS_ITS | Encounter Summary ---
Author Organization [facility] Address [address] [place] [address] Care Team Providers Care Ticket Taker Ferryboat Name Role Phone Yumiko Chandra Primary Care Provider [phone] Reason for Visit * (Routine/Next Available) - Receiving Office to Obtain Authorization Specialty Diagnoses / Procedures Referred By Contac t Referred To Contact Procedures CT OUTSIDE IMAGES HEAD Imaging, External Referral ID Status Reason Start Date Expiration Date Visits Requested Visits Authorized [id number] Receiving Office to Obtain Authorization 06/05/2023 1 1 Encounter Details Date Type Department Care Team (Latest Contact Info) Description 11/27/2022 Hospital Encounter [facility] Secondary Reads [place] Discharge Disposition: [...] 15:33 EDT This is a non-reportable exam. us External Imaging IMG OTHER IMAGING ORDERABLES Fi nal Result documented in this encounter Visit Diagnoses Not on filedocumented in this encounter Care Teams Ticket Taker Ferryboat Relationship Specialty Start Date End Date Yumiko Chandra [address] [place] [address] PCP - General Internal Medicine - Primary Care 08/29/22 documented as of this encounter
--- OUTSIDE RECORDS SUMMARY | 2024-12-05 16:20 | XMS_ITS | Encounter Summary ---
Author Organization [facility] Address [address] [place] [address] Care Team Providers Care Greensman Name Role Phone Yumiko Chandra Primary Care Provider [phone] Reason for Visit * (Routine/Next Available) - Receiving Office to Obtain Authorization Specialty Diagnoses / Procedures Referred By Contac t Referred To Contact Procedures CT OUTSIDE IMAGES HEAD AND NECK Imaging, External Referral ID Status Reason Start Date Expiration Date Visits Requested Visits Authorized [id number] Receiving Office to Obtain Authorization 06/05/2023 1 1 Encounter Details Date Type Department Care Team (Latest Contact Info) Description 05/30/2023 0:05 EDT - 05/30/2023 23:59 EDT Hospital Encounter [facility] Secondary Reads [place] Discharge Disposition: Home or [...] on filedocumented in this encounter Care Teams Greensman Relationship Specialty Start Date End Date Yumiko Chandra [address] [place] [address] PCP - General Internal Medicine - Primary Care 08/29/22 documented as of this encounter
--- OUTSIDE RECORDS SUMMARY | 2024-12-05 16:20 | XMS_ITS | Encounter Summary ---
Author Organization [facility] Address [address] [place] [address] Care Team Providers Care Joggle Press Operator Name Role Phone Unavailable Primary Care Provider Unavailabl e Encounter Details Date Type Department Care Team (Late st Contact Info) Description 03/11/2000 15:26 EDT Hospital Encounter [facility] - Other [address] [place] [address] Carlyle Rojas Chi, MD [address] [facility], [address] [place] [phone] Unknown, Provider, Discharge Disposition: Auto Discharge Social [...] EDT) PTT 24 20 - 31 secs [facility] Comment:Therapeutic Heparin range: 58-100 seconds 03/11/2000 13:1 5 EDT 03/11/2000 13:17 EDT Carlyle Rojas MD HEMATOLOGY & PF4 ORDERABLES Alena l Result Performing Organization Address City/[facility] Co de Phone Number [facility] [address] [place] [address] * PROTIME (03/11/2000 13:15 EDT) Pro Time 12.2 11.7 - 13.4 secs [facility] I.N.R. 0.9 0.8 - 1.2 Ratio [facility] Comment: Moderate Intensity Coumadin INR = 2.0-3.0 Adjustments in anticoagulant therapy dose should be based upon the INR and NOT the Pro Time 03/11/2000 13:1 5 EDT 03/11/2000 13:17 EDT Carlyle Rojas MD HEMATOLOGY & PF4 ORDERABLES Alena l Result Performing Organization Address City/[facility] Co de Phone Number [facility] [address] [place] [address] * (ABNORMAL) IRON (03/11/2000 13:15 EDT) Iron 55(L) 70 - 180 ug/dl [facility] 03/11/2000 13:1 5 EDT 03/11/2000 13:17 EDT us Carlyle Rojas MD CHEMISTRY & BLOOD GAS ORDERABLES Final Result Performing Organization Address [facility] Co de Phone Number [facility] [address] [place] [address] * IBC (03/11/2000 13:15 EDT) TIBC 327 250 - 450 ug/dl [facility] 03/11/2000 13:1 5 EDT 03/11/2000 13:17 EDT us Carlyle Rojas MD CHEMISTRY & BLOOD GAS ORDERABLES Final Result Performing Organization Address [facility] de Phone Number [facility] [address] [place] [address] * ANTI CENTROMERE AB (03/11/2000 13:15 EDT) Anti Centromere Ab <40 0 - 40 dils [facility] 03/11/2000 13:1 5 EDT 03/11/2000 13:17 EDT us Carlyle Rojas MD HISTORICAL LAB FOR SQ LOAD Final Result Performing Organization Address [facility] de Phone Number [facility] [address] [place] [address] * (ABNORMAL) HEMAGRAM & DIFF (03/11/2000 13:15 EDT) WBC 6.50 4.0 - 10.4 K/cmm [facility] RBC 4.72 4.36 - 5.78 M/cmm [facility] Hemoglobin 14.1 13.8 - 17.3 gm/dl [facility] HCT 42.4 39.5 - 50.2 % [facility] MCV 90 81 - 95 fl [facility] MCH 29.8 27.6 - 33.0 pg [facility] MCHC 33.1 32.8 - 36.4 gm/dl [facility] PLT 184 141 - 320 K/cmm [facility] RDW-CV 14.6(H) 11.8 - 14.1 % [...] 03/11/2000 13:1 5 EDT 03/11/2000 13:17 EDT us Carlyle Rojas MD HISTORICAL LAB FOR SQ LOAD Final Result Performing Organization Address City/[facility] Co de Phone Number [facility] [address] [place] [address] * ARTHRITIS 1 (03/11/2000 13:15 EDT) Anti Nuclear Ab <40 0 - 40 Dils [facility] Rheumatoid Factor <20 <20 IU/ml [facility] 03/11/2000 13:1 5 EDT 03/11/2000 13:17 EDT us Carlyle Rojas MD IMMUNOLOGY AND SEROLOGY ORDERABL ES Final Result Performing Organization Address [facility] Co de Phone Number [facility] [address] [place] [address] * ELBOW 2 VIEWS (03/11/2000 13:06 EDT) [...] scleroderma. /arline Carlyle Rojas MD IMG DIAGNOSTIC IMAGING ORDERABLE S Final Result * HAND 2 VIEWS (03/11/2000 13:06 EDT) Anatomical Region Laterality Modality Other 03/11/2000 13:0 6 EDT Impressions 09/18/2009 15:26 EST IMPRESSION: 1. Soft tissue calcification with distal fingertip soft tissue wasting and right thumb distal phalanx tuftal erosion. 2. Findings consistent with scleroderma. 3. The left index finger distal phalanx partial amputation may be traumatic in etiology and clinical correlation recommended. D-03/13/00 T-03/13/00/tin Narrative 09/18/2009 15:26 EST SCLERODERMA/CALCINOSIS CUTIC R/O [...] and clinical correlation recommended. D-03/13/00 T-03/13/00/tin Carlyle Rojsa MD IMG DIAGNOSTIC IMAGING ORDERABLE S Final Result documented in this encounter Visit Diagnoses Not on filedocumented in this encounter
--- OUTSIDE RECORDS SUMMARY | 2024-12-05 16:20 | XMS_ITS | Encounter Summary ---
Author Organization [facility] Address [address] [place] [address] Care Team Providers Care Inner Tube Inserter Name Role Phone Yumiko Chandra Primary Care Provider [phone] Reason for Visit * (Routine/Next Available) - Receiving Office to Obtain Authorization Specialty Diagnoses / Procedures Referred By Contac t Referred To Contact Procedures US OUTSIDE IMAGES OTHER Imaging, External Referral ID Status Reason Start Date Expiration Date Visits Requested Visits Authorized [id number] Receiving Office to Obtain Authorization 06/05/2023 1 1 Encounter Details Date Type Department Care Team (Latest Contact Info) Description 04/08/2023 - 04/08/2023 23:59 EDT Hospital Encounter [facility] Secondary Reads [place] Discharge Disposition: Home [...] on filedocumented in this encounter Care Teams Inner Tube Inserter Relationship Specialty Start Date End Date Yumiko Chandra [address] [place] [address] PCP - General Internal Medicine - Primary Care 08/29/22 documented as of this encounter
--- OUTSIDE RECORDS SUMMARY | 2024-12-05 16:20 | XMS_ITS | Encounter Summary ---
Author Organization [facility] Address [address] [place] [address] Care Team Providers Care Pharmaceutical Development Technician Name Role Phone Yumiko Chandra Primary Care Provider [phone] Reason for Visit * (Routine/Next Available) - Receiving Office to Obtain Authorization Specialty Diagnoses / Procedures Referred By Contac t Referred To Contact Procedures XR OUTSIDE IMAGES CHEST Imaging, External Referral ID Status Reason Start Date Expiration Date Visits Requested Visits Authorized [id number] Receiving Office to Obtain Authorization 06/05/2023 1 1 Encounter Details Date Type Department Care Team (Latest Contact Info) Description 11/27/2022 Hospital Encounter [facility] Secondary Reads [place] Discharge Disposition: Home [...] on filedocumented in this encounter Care Teams Pharmaceutical Development Technician Relationship Specialty Start Date End Date Yumiko Chandra [address] [place] [address] PCP - General Internal Medicine - Primary Care 08/29/22 documented as of this encounter
--- OUTSIDE RECORDS SUMMARY | 2024-12-05 16:20 | XMS_ITS | Encounter Summary ---
Author Organization [facility] Address [address] [place] [address] Care Team Providers Care Control Tower Operator Name Role Phone Yumiko Chandra Primary Care Provider [phone] Reason for Visit * Reason Onset Date Comments Review Treatment Options 06/10/2023 Encounter Details Date Type Department Care Team (Late st Contact Info) Description 06/10/2023 Telephone [facility] - [facility] - [facility] [address] [place] [address] Fede Roman MD [address] [facility], 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 He was evaluated last week in this office by Dr. Dalal and patient has started bicalutamide.He was scheduled to come in tomorrow for the Lupron here but he lives in [place] which is much closer to Dr. Keith. Today I spoke with Shree and Dr. Keith's office and they are arranging for himto begin Lupron in [place] next week. We will cancel his appointment here and see him on an as-needed basis documented in this encounter Plan of Treatment Not on file documented as of this encounter Visit Diagnoses Not on filedocumented in this encounter Care Teams Control Tower Operator Relationship Specialty Start Date End Date Yumiko Chandra [address] [place] [address] PCP - General Internal Medicine - Primary Care 08/29/22 documented as of this encounter
--- OUTSIDE RECORDS SUMMARY | 2024-12-05 16:20 | XMS_ITS | Clinical Summary ---
Author Organization [facility] Address [address] [place] [address] Care Team Providers Care Music Rehabilitation Therapist Name Role Phone Corazon Yumiko R Primary Care Provider [phone] Allergies No known active allergies Medications allopurinoL (ZYLOPRIM) 100 mg tablet Take 1 Tablet by mouth daily. Active omeprazole (PRILOSEC) 20 mg capsule Take 1 Capsule by mouth daily. Active sertraline (ZOLOFT) 25 mg tablet Take 1 Tablet by mouth daily. Active Encounters Date Type Department Care Team Description 09/15/2024 Lab Requisition [facility] Pathology & Laboratory Medicine - [address] [address] Outr Resulting Lab, Provider from Last 3 [...] Last Done Comments Hepatitis C Screen 1945 Fall Risk Screening 2011 RSV Immunization ( o r 60+ Years) (1 - 1-dose 75+ series) 2021 COVID-19 Vaccine ( season) 2024 Procedures Procedure Name Priority Date/Time Associated Diagnosis Comments PSA TOTAL, DIAGNOSTIC Routine 09/15/2024 11:00 EST from Last 3 Months Results * PSA TOTAL, DIAGNOSTIC (09/15/2024 11:00 EST) PSA 1.0 <=6.5 ng/mL 09/15/2024 22:[address] [facility] Blood VENOUS BLOOD / Unknown 09/15/2024 11:00 EST 09/15/2024 21:[address] [facility] - 09/15/2024 22:14 EST NOTE: Serum PSA concentration should not be interpreted as absolute evidence for the presence or absence of malignant disease. Assayed on Siemens [facility] XPT using chemiluminescent technology.??Values obtained by using different assay methods cannot be used interchangeably. us Provider Outr Resulting Lab CHEMISTRY & BLOOD GA S ORDERABLES Final Result [facility] [address] [place] [address] from Last 3 Months Insurance [place] Care Teams Music Rehabilitation Therapist Relationship Specialty Start Date End Date Yumiko Chandra [address] [place] [address] PCP - General Internal Medicine - Primary Care 08/29/22
--- OUTSIDE RECORDS SUMMARY | 2024-12-05 16:20 | XMS_ITS ---
Author Organization Unknown Address [address] [place] [phone] Phone Care Team Providers Care Log Hooker Name Role Phone OSIRIS Dhillon Attending Unavailable OHA Reyes Primary Unavailable Results PSA DIAG PROSTATE SPECIFIC A NTIGEN * - Collect Date/Time: 10/06/2023 11:35 [facility] ID: [id number] - [id number] [address] [place] [address], 5661 LOINC: 2857-1 Test Value Unit Reference Range Code Code System Flag PSA 1.05 ng/mL L=0.00 H=6.50 2857-1 LOINC Social History Type Status Start Date End Date Code Code Syst em Smoking History Former smoker 8444663 SNOMED CT Sex Male Assessment You had [...] Status Code Code System CREST SYNDROME active 29196608 SNOME D-CT HTN active 63890872 SNOMED-CT DEPRESSION active 61254795 SNOMED-CT GOUT active 93467524 SNOMED-CT Allergies and Adverse Reactions Allergy Substance Reaction Severity Start Date Concern Status Co de Code System No Known Drug Allergies Active 696081036 SNOMED-CT Plan of Treatment CT HEAD W/O CONTRAST 06/25/2023 X-RAY 05/26/2023 NM BONE SCAN WHOLE BODY 05/07/2023 US GUIDED NEEDLE BIOPSY 04/08/2023 Encounters Encounter Diagnosis Start Date Code Code Sys tem Malignant neoplasm of prostate 10/06/2023 SNOMED-CT Personal Care Team Section Performer Name Performer Role Active Date Inactive Da te
--- OUTSIDE RECORDS SUMMARY | 2024-12-05 16:20 | XMS_ITS | Encounter Summary ---
Author Organization [facility] Address [address] [place] [address] Care Team Providers Care Warehouse Clerk Name Role Phone Unavailable Primary Care Provider Unavailabl e Encounter Details Date Type Department Care Team (Late st Contact Info) Description 08/12/2022 Orders Only [facility] Radiology - Main [place] [address] [place] [address] Barrett Hooks MD [address] [place] [address] Social History Tobacco Use Types Packs/Day Years [...]
[2024-12-06 18:45] LABS: PSA, Diagnostic 0.8 ng/mL (<=6.5)
== END 2024-12-05 16:09 | disposition home or self-care (01) ==
LOC: LBN 16:08
PROVIDERS: PCP Internal Medicine; Visit Provider Urology
DX: C61 Malignant neoplasm of prostate (principal)
CPT/HCPCS: 84153

== ENCOUNTER 2025-03-17 21:01 | Outpatient (REF) | payer MEDICARE, SELFPAY ==
[2025-03-17 21:28] LABS: HCT 43.5 % (40.0-50.0); HGB 14.1 g/dL (13.5-17.5); MCH 29.9 pg (27.0-33.0); MCHC 32.4 % (32.0-36.0); MCV 92 fL (80-95); MPV 10.5 fL (8.0-11.0); Platelet Count 180 10^3/uL (130-400); RBC 4.71 10^6/uL (4.36-5.78); RDW 14.4 % (11.8-14.1); RDW-SD 48.6 fL; WBC 5.84 10^3/uL (4.4-10.8)
[2025-03-17 22:07] LABS: ALT 18 U/L (16-63); AST 27 U/L (15-37); Alkaline Phosphatase 111 U/L (46-116); Anion Gap 6.2 mmol/L (3-11); BUN 29 mg/dL (7-18); Bilirubin, Total 0.5 mg/dL (0.2-1.0); CO2 31.8 mmol/L (21.0-32.0); CREATININE 1.2 mg/dL (0.70-1.30); Calcium 9.5 mg/dL (8.5-10.1); Chloride 99 mmol/L (98-107); Glucose 88 mg/dL (74-106); Potassium 4.4 mmol/L (3.5-5.1); Sodium 137 mmol/L (136-145); Total Protein 8.3 g/dL (6.4-8.2); Vitamin B12 313 pg/mL (193-986); Vitamin D 25 Total 35 ng/mL (30-100)
== END 2025-03-17 21:02 | disposition home or self-care (01) ==
LOC: NCHCN 21:01
PROVIDERS: PCP Internal Medicine; Visit Provider Internal Medicine
DX: E55.9 Vitamin D deficiency, unspecified (principal); I10 Essential (primary) hypertension
CPT/HCPCS: 80053; 82306; 85027; 82607

== ENCOUNTER 2025-06-23 14:49 | Outpatient (REF) | payer MEDICARE, SELFPAY ==
[2025-06-26 10:49] LABS: PSA, Diagnostic 11.1 ng/mL (<=6.5)
== END 2025-06-23 14:50 | disposition home or self-care (01) ==
LOC: LBN 14:49
PROVIDERS: PCP Internal Medicine; Visit Provider Urology
DX: C61 Malignant neoplasm of prostate (principal)
CPT/HCPCS: 84153

== ENCOUNTER 2025-08-30 16:10 | Outpatient (REF) | payer MEDICARE, SELFPAY ==
[2025-08-30 21:19] LABS: COMMENT (LAB VIEW ONLY) 122.19 mg/dL; Microalb ug/mg Crea 74.0 ug/mg Cr
== END 2025-08-30 16:11 | disposition home or self-care (01) ==
LOC: NCHCN 16:10
PROVIDERS: PCP Internal Medicine; Visit Provider Internal Medicine
DX: I10 Essential (primary) hypertension (principal)
CPT/HCPCS: 82043; 82570

== ENCOUNTER 2025-10-16 16:31 | Outpatient (REF) | payer MEDICARE, SELFPAY ==
[2025-10-17 18:52] LABS: PSA, Screening 4.9 ng/mL (<=6.5)
== END 2025-10-16 16:32 | disposition home or self-care (01) ==
LOC: NCHCN 16:31
PROVIDERS: PCP Internal Medicine; Visit Provider Internal Medicine
DX: Z12.5 Encounter for screening for malignant neoplasm of prostate (principal)
CPT/HCPCS: 84153